=== PATIENT | female | born 1970 | race Caucasian/White ===

== ENCOUNTER → 2017-09-18 09:02 | Outpatient (CLI) | payer OTHER, SELFPAY ==
--- NOTE | 2017-09-18 09:04 | BI_ITS ---
MAMMOGRAPHY - BILATERAL SCREENING REASON FOR EXAM: Female, 46 years old. Routine annual screening examination. PERTINENT HISTORY: Non-contributory. Prior bilateral breast reduction surgery. TECHNIQUE: Digital bilateral breast randall (3D mammographic acquisition) in the CC and MLO projections. 2-D mediolateral oblique (MLO) and craniocaudad (CC) views of both breasts were obtained. CAD: Full Field Digital Mammography with Computer Added Detection was performed. COMPARISON: Comparison is made with prior study dated April 19, 2016 and December 31, 2014. FINDINGS: Breast Composition: There are scattered areas of fibroglandular density. There are no dominant masses or suspicious calcifications. Stable deformity along the deep inferior aspect of the left breast with prior breast reduction surgery. Tissue clip marker is once again seen in the deep midportion of the left breast. Calcifications are seen in the midportion of the left breast most likely postsurgical in nature. No other significant abnormalities are identified. There has been no significant change since the prior study. BI/SCREENING MAMM (CAD), BILAT IMPRESSION: Stable bilateral screening mammogram. Yearly follow-up mammogram recommended. (A) ASSESSMENT CATEGORY: BIRADS Category 2: Benign. A letter regarding these results will be sent to the patient by the facility within 30 days. Approximately 10% of breast cancers are not detected by mammography. A normal mammogram should not delay biopsy of a clinically suspicious abnormality. [id number] Electronically Signed: Armando Oswald MD at 13:03 EDT Tel [phone], Service support ,
[2017-09-20 12:09] LABS: HPV Reflexed? NOT INDICATED
== END ==
LOC: OPBI 09:02 → LABSPEC 14:01
PROVIDERS: Family Provider Family Medicine; PCP Family Medicine; Visit Provider Obstetrics & Gynecology
DX: Z12.31 Encounter for screening mammogram for malignant neoplasm of breast (principal); Z12.4 Encounter for screening for malignant neoplasm of cervix
CPT/HCPCS: 77063; 77067; 88175; G0145

== ENCOUNTER → 2018-12-19 08:08 | Outpatient (CLI) | payer BC, SELFPAY ==
--- NOTE | 2018-12-19 08:27 | BI_ITS ---
MAMMOGRAPHY - BILATERAL SCREENING REASON FOR EXAM: Female, 48 years old. Routine annual screening examination. PERTINENT HISTORY: Non-contributory. History of bilateral breast reduction surgery. TECHNIQUE: Digital bilateral breast mignon (3D mammographic acquisition) in the CC and MLO projections. 2-D mediolateral oblique (MLO) and craniocaudad (CC) views of both breasts were obtained. CAD: Full Field Digital Mammography with Computer Added Detection was performed. COMPARISON: Comparison is made with prior study dated September 18, 2017 and April 19, 2016. FINDINGS: Breast Composition: There are scattered areas of fibroglandular density. There are no dominant masses or suspicious calcifications. Stable deformity along the inferior aspect of the left breast and compared with prior breast reduction surgery and fluid drainage. A tissue clip marker is seen in the deep aspect of the left breast. Stable calcifications in the midportion of the left breast incomplete with postsurgical changes. No other significant abnormalities are identified. There has been no significant change since the prior study. BI/SCREEN MAMM (CAD) W/MIGNON BILAT IMPRESSION: Stable bilateral screening mammogram. Yearly follow-up mammogram recommended. (A) ASSESSMENT CATEGORY: BIRADS Category 2: Benign. A letter regarding these results will be sent to the patient by the facility within 30 days. Approximately 10% of breast cancers are not detected by mammography. A normal mammogram should not delay biopsy of a clinically suspicious abnormality. [id number] Electronically Signed: Armando Oswald, at 10:04 EDT , Service support ,
[2018-12-25 14:12] LABS: HPV APTIMA, High Risk Negative (Negative)
== END ==
LOC: OPBI 08:26 → LABSPEC 10:36
PROVIDERS: Family Provider Family Medicine; PCP Family Medicine; Referring Provider Obstetrics & Gynecology; Visit Provider Obstetrics & Gynecology
DX: Z12.31 Encounter for screening mammogram for malignant neoplasm of breast (principal); Z12.4 Encounter for screening for malignant neoplasm of cervix
CPT/HCPCS: 77063; 77067; 87624; 88175; G0145

== ENCOUNTER → 2020-02-05 | Outpatient (CLI) | payer BC, SELFPAY ==
[2020-02-10 11:59] LABS: HPV Reflexed? NOT INDICATED
== END | disposition home or self-care (01) ==
LOC: LABSPEC 13:24
PROVIDERS: PCP Family Medicine; Visit Provider Obstetrics & Gynecology
DX: Z12.4 Encounter for screening for malignant neoplasm of cervix (principal)
CPT/HCPCS: 88175; G0145

== ENCOUNTER → 2020-05-02 13:03 | Outpatient (CLI) | payer BC, SELFPAY ==
--- NOTE | 2020-05-02 13:07 | BI_ITS ---
MAMMOGRAPHY - BILATERAL SCREENING REASON FOR EXAM: Female, 49 years old. Routine annual screening examination. PERTINENT HISTORY: NO FAM HX OF BREAST CA PT HAD FIRST CHILD AT AGE 42 RT STEREO BX 03/2010 RT SKIN TAG MARKED BILAT REDUCTION 10/2015 (ONE SURGICAL SLIP CLOSE TO CHEST WALL ON LEFT) LEFT IMF- EXCESSIVE SCAR/PUCKERING FROM REDUCTION TECHNIQUE: Digital bilateral breast mignon (3D mammographic acquisition) in the CC and MLO projections. 2-D mediolateral oblique (MLO) and craniocaudad (CC) views of both breasts were obtained. CAD: Full Field Digital Mammography with Computer Added Detection was performed. COMPARISON: 12/19/2018 and 09/08/2017 FINDINGS: Breast Composition: There are scattered areas of fibroglandular density. There are no dominant masses or suspicious calcifications. Stable deformity along the inferior aspect of the left breast and compared with prior breast reduction surgery and fluid drainage. A tissue clip marker is seen in the deep aspect of the left breast. Stable calcifications in the midportion of the left breast incomplete with postsurgical changes. No other significant abnormalities are identified. There has been no significant change since the prior study. BI/SCREEN MAMM (CAD) W/MIGNON BILAT IMPRESSION: Stable bilateral screening mammogram. Yearly follow-up mammogram recommended. (A) ASSESSMENT CATEGORY: BIRADS Category 2: Benign. A letter regarding these results will be sent to the patient by the facility within 30 days. Approximately 10% of breast cancers are not detected by mammography. A normal mammogram should not delay biopsy of a clinically suspicious abnormality. [id number] Electronically Signed: Nikia Sexton, at 16:05 EST Tel , Service support ,
== END ==
PROVIDERS: PCP Family Medicine; Referring Provider Obstetrics & Gynecology; Visit Provider Obstetrics & Gynecology
DX: Z12.31 Encounter for screening mammogram for malignant neoplasm of breast (principal)
CPT/HCPCS: 77063; 77067

== ENCOUNTER 2021-06-22 10:16 | Outpatient (CLI) | payer BC, SELFPAY ==
--- NOTE | 2021-06-22 10:18 | BI_ITS ---
MAMMOGRAPHY - BILATERAL SCREENING REASON FOR EXAM: Female, 50 years old. Routine annual screening examination. PERTINENT HISTORY: Non-contributory. History of prior bilateral breast reduction surgery and right stereotactic breast biopsy. TECHNIQUE: Digital bilateral breast mignon (3D mammographic acquisition) in the CC and MLO projections. 2-D mediolateral oblique (MLO) and craniocaudad (CC) views of both breasts were obtained. CAD: Full Field Digital Mammography with Computer Added Detection was performed. COMPARISON: Comparison is made with prior study dated 05/02/2020 and 12/20/1999 FINDINGS: Breast Composition: There are scattered areas of fibroglandular density. There are no dominant masses or suspicious calcifications. Stable architectural distortion and deformity of the right breast with skin thickening and compared with prior breast reduction surgery and stereotactic breast biopsy. Stable small benign-appearing bilateral axillary lymph nodes. No other significant abnormalities are identified. There has been no significant change since the prior study. BI/SCRN MAMM (CAD)W/MIGNON BILAT IMPRESSION: Stable bilateral screening mammogram. Yearly follow-up mammogram recommended. (A) ASSESSMENT CATEGORY: BIRADS Category 2: Benign. A letter regarding these results will be sent to the patient by the facility within 30 days. Approximately 10% of breast cancers are not detected by mammography. A normal mammogram should not delay biopsy of a clinically suspicious abnormality. [id number] Electronically Signed: Armando Oswald MD at 14:01 EST ,
== END 2021-06-22 23:59 | disposition home or self-care (01) ==
LOC: OPBI 10:16
PROVIDERS: PCP Family Medicine; Referring Provider Obstetrics & Gynecology; Visit Provider Obstetrics & Gynecology
DX: Z12.31 Encounter for screening mammogram for malignant neoplasm of breast (principal)
CPT/HCPCS: 77063; 77067

== ENCOUNTER 2021-07-18 16:53 | Outpatient (CLI) | payer BC, SELFPAY ==
[2021-07-24 13:25] LABS: HPV APTIMA, High Risk Negative (Negative)
== END 2021-07-18 23:59 | disposition home or self-care (01) ==
LOC: WOBLAB 16:54
PROVIDERS: PCP Family Medicine; Visit Provider Obstetrics & Gynecology
DX: Z12.4 Encounter for screening for malignant neoplasm of cervix (principal); N92.6 Irregular menstruation, unspecified
CPT/HCPCS: 36415; 83001; 87624; 88175; G0145

== ENCOUNTER → 2021-09-26 | Outpatient (CLI) | payer BC, SELFPAY ==
[2021-09-26 13:24] LABS: Hematocrit 44.8 % (37-47); Hemoglobin 14.8 g/dL (12.0-15.0); Mean Corpuscular Volume 87.7 fL (81-99); Mean Platelet Vol. 10.5 fl (6.2-12.0); Platelet Count 319 K/mm3 (150-450); RBC Distribution Width CV 12.5 % (11.6-14.6); RBC Distribution Width SD 39.9 fl (35.1-43.9); Red Blood Count 5.11 M/mm3 (4.2-5.4); White Blood Count 9.2 K/mm3 (4.4-11.0)
[2021-09-26 13:40] LABS: ALB/GLOB Ratio 1.1 RATIO (0.9-2.4); AST(SGOT) 26 U/L (15-37); Alanine Aminotransfer ALT/SGPT 50 U/L (13-56); Alkaline Phosphatase 81 U/L (45-117); Anion Gap 7 (5-15); BUN 14 mg/dL (7-18); BUN/Creat Ratio 18.8 RATIO (10-20); Chloride 102 mmol/L (98-107); Creatinine, Serum 0.75 mg/dL (0.55-1.02); EST Glomerular Filtration Rate 87 mL/min (>60); Est Glom Filt Rate - Afr Amer 105 mL/min (>60); Estradiol 133.8 pg/mL; Ferritin 122 ng/mL (8-252); Globulin 3.8 g/dL (2.2-4.2); Glucose 87 mg/dL (74-106); Iron 129 ug/dL (50-170); Iron Binding Capacity,Total 364 ug/dL (250-450); Potassium 3.6 mmol/L (3.5-5.1); Progesterone Level 4.47 ng/mL (See Comment); Protein, Total 7.8 g/dL (6.4-8.2); Sodium Level 135 mmol/L (136-145); Vitamin B12 337 pg/mL (211-911)
[2021-09-26 13:42] LABS: Hemoglobin A1c 5.2 % (3.8-5.6)
== END | disposition home or self-care (01) ==
LOC: WOBLAB 12:20
PROVIDERS: PCP Family Medicine; Visit Provider Obstetrics & Gynecology
DX: N95.1 Menopausal and female climacteric states (principal); R53.83 Other fatigue; Z13.1 Encounter for screening for diabetes mellitus
CPT/HCPCS: 36415; 80053; 82607; 82670; 82728; 83036; 83540; 83550; 84144; 84270; 84403; 85027

== ENCOUNTER → 2021-09-29 | Outpatient (CLI) | payer BC, SELFPAY ==
[2021-09-29 11:30] LABS: Glucose 75GTT - 30 minutes 173 mg/dL (100-160)
[2021-09-29 11:32] LABS: Glucose 75GTT - Fasting 89 mg/dL (70-99)
[2021-09-29 11:40] LABS: Insulin 75GTT - Fasting 21.5 mU/L (2.6-37.6)
[2021-09-29 11:40] LABS: Insulin 75GTT - 30 MIN 175.7 mU/L (Not Estab.)
[2021-09-29 11:55] LABS: Glucose 75GTT - 60 minutes 193 mg/dL (100-160)
[2021-09-29 12:03] LABS: Insulin 75GTT - 60 min 285.5 mU/L (Not Estab)
[2021-09-29 13:41] LABS: Glucose 75GTT - 120 minutes 135 mg/dL (70-140)
[2021-09-29 15:15] LABS: Insulin 75GTT - 120 min 387.6 mU/L (Not Estab.)
== END | disposition home or self-care (01) ==
LOC: WOBLAB 10:08
PROVIDERS: PCP Family Medicine; Visit Provider Obstetrics & Gynecology
DX: R73.09 Other abnormal glucose (principal); R63.5 Abnormal weight gain; Z86.32 Personal history of gestational diabetes
CPT/HCPCS: 36415; 82951; 82952; 83525

== ENCOUNTER → 2023-01-24 | Outpatient (CLI) | payer BC, SELFPAY ==
--- NOTE | 2023-01-24 08:39 | BI_ITS ---
MAMMOGRAPHY - BILATERAL SCREENING REASON FOR EXAM: Female, 52 years old. Routine annual screening examination. PERTINENT HISTORY: Non-contributory. History of prior right stereotactic breast biopsy. History of bilateral breast reduction surgery. TECHNIQUE: Digital bilateral breast mignon (3D mammographic acquisition) in the CC and MLO projections. 2-D mediolateral oblique (MLO) and craniocaudad (CC) views of both breasts were obtained. CAD: Full Field Digital Mammography with Computer Added Detection was performed. COMPARISON: Comparison is made with prior study dated June 22, 2021 and April 24, 2020. FINDINGS: Breast Composition: There are scattered areas of fibroglandular density. There are no dominant masses or suspicious calcifications. A tissue clip marker is once again seen in the deep central portion of the left breast. Stable architectural distortion and deformity of the left breast and skin thickening in keeping with prior breast reduction surgery. Stable benign-appearing bilateral axillary lymph nodes. No other significant abnormalities are identified. There has been no significant change since the prior study. BI/SCRN MAMM (CAD)W/MIGNON BILAT IMPRESSION: Stable bilateral screening mammogram. Yearly follow-up mammogram recommended. (A) ASSESSMENT CATEGORY: BIRADS Category 2: Benign. A letter regarding these results will be sent to the patient by the facility within 30 days. Approximately 10% of breast cancers are not detected by mammography. A normal mammogram should not delay biopsy of a clinically suspicious abnormality. [id number] Electronically Signed: Armando Oswald MD at 9:39 EDT ,
== END | disposition home or self-care (01) ==
LOC: OPBI 08:37
PROVIDERS: PCP Family Medicine; Referring Provider Nurse Practitioner Family; Visit Provider Nurse Practitioner Family
DX: Z12.31 Encounter for screening mammogram for malignant neoplasm of breast (principal)
CPT/HCPCS: 77063; 77067

== ENCOUNTER → 2024-01-31 | Outpatient (CLI) | payer BC, SELFPAY ==
--- NOTE | 2024-01-31 09:55 | BI_ITS ---
MAMMOGRAPHY - BILATERAL SCREENING REASON FOR EXAM: Female, 53 years old. Routine annual screening examination. PERTINENT HISTORY: Non-contributory. Prior right stereotactic breast biopsy in bilateral breast reduction. TECHNIQUE: Digital bilateral breast mignon (3D mammographic acquisition) in the CC and MLO projections. 2-D mediolateral oblique (MLO) and craniocaudad (CC) views of both breasts were obtained. CAD: Full Field Digital Mammography with Computer Added Detection was performed. COMPARISON: Comparison is made with prior study dated January 24, 2023 and March 22, 2022. FINDINGS: Breast Composition: There are scattered areas of fibroglandular density. There are no dominant masses or suspicious calcifications. A tissue clip marker is once again seen in the deep central portion of the left breast. Stable architectural distortion and deformity of the left breast in the inferior lateral aspect of the breast and compared with prior breast reduction surgery. No other significant abnormalities are identified. There has been no significant change since the prior study. BI/SCRN MAMM (CAD)W/MIGNON BILAT IMPRESSION: Stable bilateral screening mammogram. Yearly follow-up mammogram recommended. (A) ASSESSMENT CATEGORY: BIRADS Category 2: Benign. A letter regarding these results will be sent to the patient by the facility within 30 days. Approximately 10% of breast cancers are not detected by mammography. A normal mammogram should not delay biopsy of a clinically suspicious abnormality. [id number] Electronically Signed: Armando Oswald MD at 10:33 EDT ,
== END | disposition home or self-care (01) ==
LOC: OPBI 09:54
PROVIDERS: PCP Family Medicine; Referring Provider Nurse Practitioner Family; Visit Provider Nurse Practitioner Family
DX: Z12.31 Encounter for screening mammogram for malignant neoplasm of breast (principal)
CPT/HCPCS: 77063; 77067

== ENCOUNTER → 2025-02-23 | Outpatient (CLI) | payer BC, SELFPAY ==
--- NOTE | 2025-02-23 16:36 | BI_ITS ---
EXAM: SCRN MAMM (CAD)W/MIGNON BILAT DATE: 02/23/2025 CLINICAL HISTORY: F, Age 54 y/o , SCREENING No family history. History of prior bilateral breast reduction surgery and stereotactic breast biopsy. TECHNIQUE: Procedure Code: [id number] Modality: MG Procedure: SCRN MAMM (CAD)W/MIGNON BILAT COMPARISON: Prior exam(s) dated January 31, 2024.. FINDINGS: TISSUE DENSITY: There are scattered areas of fibroglandular density. Bilateral Breast Mammographic Findings: No significant masses, calcifications or other abnormalities are identified. A tissue clip marker is once again seen in the deep upper central portion of the left breast. Stable architectural distortion in the upper central portion of the left breast in keeping with prior surgery. No suspicious masses, areas of developing architectural distortion, or suspicious calcifications. There has been no significant interval change. BI/SCRN MAMM (CAD)W/MIGNON BILAT IMPRESSION: Stable bilateral screening mammogram. OVERALL FINAL ASSESSMENT BI-RADS 2: BENIGN RECOMMENDATION: Routine annual follow-up in 1 Year Additional Recommendation none A letter with findings and recommendations will be mailed to the patient. Reading Location: [place] [id number]
--- OUTSIDE RECORDS SUMMARY | 2025-02-24 07:07 | XMS RPT_ITS | CCD ---
Author Organization [facility] Care Team Providers Care Mid Level Provider Name Role Phone Cornell Humphrey Unavailable SAJI SILVA Unavailable Unavailable SAJI SILVA Unavailable Unavailable HUMPHREYCORNELL Long Unavailable Unavaila ble Newbill, Scott Ramses Unavailable Unavailable Newbill, Scott Ramses Unavailable Unavailable Humphrey, Christopher Unavailable Unavailable Wood, Ravin L Unavailable Unavailable Humphrey, Christopher Unavailable Unavailable Wood, Ravin L Unavailable Unavailable Wood, Ravin L Unavailable Unavailable Humphrey, Christopher Unavailable Unavailable Wood, Ravin L Unavailable Unavailable Wood, Ravin L Unavailable Unavailable Wood, Ravin L Unavailable Unavailable Humphrey, Christopher Unavailable Unavailable Wood, Ravin L Unavailable Unavailable Wood, Ravin L Unavailable Unavailable Humphrey, Christopher Unavailable Unavailable Wood, Ravin L Unavailable Unavailable Humphrey, Christopher Unavailable Unavailable Wood, Ravin L Unavailable Unavailable Humphrey, Christopher Unavailable Unavailable Wood, Ravin L Unavailable Unavailable Wood, Ravin L Unavailable Unavailable Wood, Ravin L Unavailable Unavailable Humphrey, Christopher Unavailable Unavailable Wood, Ravin L Unavailable Unavailable Humphrey, Christopher Unavailable Unavailable Wood, Ravin L Unavailable Unavailable Wood, Ravin L Unavailable Unavailable Humphrey, Christopher Unavailable Unavailable Wood, Ravin L Unavailable Unavailable Wood, Ravin L Unavailable Unavailable Wood, Ravin L Unavailable Unavailable Humphrey, Christopher Unavailable Unavailable Wood, Ravin L Unavailable Unavailable Wood, Ravin L Unavailable Unavailable Humphrey, Christopher Unavailable Unavailable Leonard Feng Unavailable Unavailable Leonard Feng Unavailable Unavailable ALISON FATIMA Attending Unavailab le CORNELL HUMPHREY Primary Care Unavaila ble Wood, Ravin Unavailable Unavailable Vincent Humphreyopher D Unavailable Unavailable Cornell Humphrey Primary Care Provider [phone] Cornell Humphrey Unavailable Unavailable Unavailable Cornell Humphrey Unavailable Scott Guzman Unavailable Ravin Alexander Unavailable Arthur, Ms. Ravin Moraine Referring Unav ailable Wood, Ms. Ravin Moraine Attending Unav ailable Milagro, Cornell Cullen Primary Care Unavaila ble Milagro, Cornell Cullen Primary Care Unavaila ble Wood, Ms. Ravin Moraine Referring Unav ailable Wood, Ms. Ravin Moraine Attending Unav ailable Milagro, Dr. Cornell Cullen Primary Care Unav ailable Newstevel, Mr. Scott Pearce Attending Unavail able Cornell Humphrey MD Primary Care Provider Cornell Humphrey MD Primary Care Provider CORNELL HUMPHREY Primary Care Unavailable YEHUDA APPIAH Attending Unavailable CORNELL HUMPHREY Primary Care Unavailable CORNELL HUMPHREY Primary Care Unavailable Cornell Humphrey MD Primary Care Provider Arthur PILOT SUBMERSIBLE-Ravin MOY Primary Care Provider Arthur PICKARD-Ravin MOY Primary Care Provider RAVIN ALEXANDER Attending Unavailable RAVIN ALEXANDER Primary Care Unavailable RAVIN ALEXANDER Referring Unavailable RAVIN ALEXANDER Attending Unavailable Kermit Humphrey Primary Care Unavailable Allergies Allergy Classification Reported Allergen(s) Allergy Type Date of Onset Reaction(s) Facility (20 sources) codeine; Translations: [CODEINE] Propensity to adverse reactions to drug 0 Unknown [facility] Work Phone: (8 sources) Penicillins; Translations: [PENICILLINS] Propensity to adverse reactions to drug 0 [facility] Work Phone: (6 sources) Penicillins; Translations: [Penicillins] Allergy to drug (finding) Rash [facility] Work Phone: (4 sources) Penicillins Drug Allergy 3 Unknown [facility] Work Phone: (1 source) Penicillins Drug Allergy 3 Unknown [facility] Work Phone: Medications Current Medications Medication Drug Class(es) Dates Sig (Normalized) Sig (Original) atorvastatin 10 mg oral tablet (1 source) HMG-CoA Reductase Inhibitor Start: 01-28-2025 End: 01-28-2026 take 1 tablet by mouth once daily atorvastatin (Lipitor) 10 mg tablet Indications: Elevated LDL cholesterol level Take 1 tablet (10 mg) by mouth once daily. 90 tablet 3 01/28/2025 01/28/2026 Active azithromycin 250 mg oral tablet (1 source) Macrolide Antimicrobial Start: 12-15-2021 Zithromax Z-Javier 250 mg oral tablet ; as directed on packeage Quantity: 1 Refills: 0 Ordered: 15-Dec-2021 Scott Guzman Start: 15-Dec-2021 Generic Substitution Allowed Comments: Do not take dairy products, antacids, or iron preparations within one hour of this medication.Finish all this medication unless otherwise directed by prescriber. Comment on above: Do not take dairy pr oducts, antacids, or iron preparations within one hour of this medication.Finish all this medication unless otherwise directed by prescriber. brompheniramine maleate 0.4 mg/ml / dextromethorphan hydrobromide 2 mg/ml / pseudoephedrine hydrochloride 6 mg/ml oral solution (1 source) alpha-Adrenergic Agonist, Uncompetitive F-womvqn-J-asparta te Receptor Antagonist, Sigma-1 Agonist Start: 12-15-2021 brompheniramine/pse udoephedrine/dextro methorphan [id number]/5 mL oral syrup ; 10 milliliter(s) orally 4 times a day, As Needed for cold or allergy symproms Quantity: 200 Refills: 0 Ordered: 15-Dec-2021 Scott Guzman Start: 15-Dec-2021 Generic Substitution Allowed Comments: May cause drowsiness. Alcohol may intensify this effect. Use care when operating dangerous machinery.Obtain medical advice before taking any non-prescription drugs as some may affect the action of this medication. Comment on above: May cause drowsiness . Alcohol may intensify this effect. Use care when operating dangerous machinery.Obtain medical advice before taking any non-prescription drugs as some may affect the action of this medication. 24 hr buPROPion hydrochloride 150 mg extended release oral tablet (1 source) Aminoketone Start: 12-15-2024 take 1 tablet by mouth once daily before mealtime buPROPion XL (Wellbutrin XL) 150 mg 24 hr tablet Take 1 tablet (150 mg) by mouth once daily in the morning. Take before meals. 12/15/2024 Active cefdinir 300 mg oral capsule (1 source) Cephalosporin Antibacterial Start: 09-25-2023 End: 10-05-2023 take 1 capsule by mouth twice daily cefdinir (Omnicef) 300 mg capsule Indications: Non-recurrent acute serous otitis media of both ears Take 1 capsule (300 mg) by mouth 2 times a day for 10 days. 20 capsule 09/25/2023 10/05/2023 Active cholecalciferol 400 unt oral tablet (3 sources) Vitamin D Start: 05-20-2017 take 2 tablets by mouth once daily CHOLECALCIFEROL 400 unit tablet Take 800 Units by mouth daily. 3 05/20/2017 Active empagliflozin 25 mg oral tablet (7 sources) Sodium-Glucose Cotransporter 2 Inhibitor Start: 01-01-2022 empagliflozin (Jardiance) 25 mg Take by mouth. 01/01/2022 Active Start: 01-01-2022 empagliflozin (Jardiance) 10 mg Take by mouth. 0 01/01/2022 Active Jardiance Quanti ty: 0 Refills: 0 Ordered: 15-Dec-2021 Jenny Pretty Generic Substitution Allowed 84 hr estradiol 0.00613 mg/hr transdermal system (1 source) Estrogen Start: 01-22-2025 estradiol (Vivelle-DOT) 0.0375 mg/[address] 1 patch on the skin 2 times a week. 01/22/2025 Active fluconazole 150 mg oral tablet (2 sources) Azole Antifungal Start: 09-25-2023 End: 09-25-2023 take 1 tablet by mouth once daily fluconazole (Diflucan) 150 mg tablet Indications: Non-recurrent acute serous otitis media of both ears Take 1 tablet (150 mg) by mouth 1 time for 1 dose. Repeat on last day of antibiotics 2 tablet 09/25/2023 09/25/2023 Active Start: 12-15-2021 End: 12-15-2021 take 1 tablet by mouth once Diflucan 150 mg oral table t ; 1 tab(s) orally once Quantity: 1 Refills: 0 Ordered: 15-Dec-2021 ToritoScott yao Start: 15-Dec-2021 End: 15-Dec-2021 Generic Substitution Allowed Comments: Do not take this drug if you are .Finish all this medication unless otherwise directed by prescriber. Comment on above: Do not take this malachi g if you are .Finish all this medication unless otherwise directed by prescriber. hydroCHLOROthiazide 12.5 mg oral tablet (12 sources) Thiazide Diuretic Start : 12-21 End: 01-26 take 1 tablet by mouth once daily hydroCHLOROthiazide (Microzide) 12.5 mg tablet Indications: Benign hypertension TAKE 1 TABLET BY MOUTH ONCE DAILY. 90 tablet 3 01/26/2025 Active take 1 capsule by mouth once radha ly hydroCHLOROthiazide 12.5 mg oral capsule ; 1 cap(s) orally once a day Quantity: 0 Refills: 0 Ordered: 12-Jan-2021 Steffi Lynch Generic Substitution Allowed hydroCHLOROthiazide 12.5 mg / lisinopril 10 mg oral tablet (3 sources) Thiazide Diuretic, Angiotensin Converting Enzyme Inhibitor Start: 05-20-2017 take 10-12.5 mg by mouth once lisinopril-hydrochlorothiazide (PRINZIDE,ZESTORETIC) 10-12.5 mg per tablet Take 1 tablet by mouth daily. 2 05/20/2017 Active Start: 05-20-2017 take 1 tablet by brenton th once daily lisinopril-hydrochlorothiazide (PRINZIDE,ZESTORETIC) 10-12.5 mg per tablet Take 1 tablet by mouth daily. 2 05/20/2017 Active levothyroxine sodium 0.05 mg oral tablet (1 source) l-Thyroxine Start: 08-19-2024 take 1 tablet by mouth in the morning levothyroxine (Synthroid, Levoxyl) 50 mcg tablet Take 1 tablet (50 mcg) by mouth early in the morning.. 08/19/2024 Active losartan potassium 50 mg oral tablet (12 sources) Angiotensin 2 Receptor Nini Start: 12-22-2019 End: 01-26-2025 take 1 tablet by mouth once daily losartan (Cozaar) 50 mg tablet Indications: Benign hypertension TAKE 1 TABLET BY MOUTH EVERY DAY 90 tablet 3 01/26/2025 Active metFORMIN hydrochloride 500 mg oral tablet (8 sources) Biguanide Start: 01-01-2022 take 2 tablets by mouth twice daily metFORMIN (Glucophage) 500 mg tablet Take 2 tablets (1,000 mg) by mouth 2 times a day. 0 01/01/2022 Active take 1 tablet by brenton th once daily at bedtime metFORMIN (Glucophage) 1,000 mg tablet T ricky 1 tablet (1,000 mg) by mouth once daily at bedtime. Active metFORMIN Quanti ty: 0 Refills: 0 Ordered: 15-Dec-2021 Jenny Pretty Generic Substitution Allowed 24 hr metoprolol succinate 25 mg extended release oral tablet (12 sources) beta-Adrenergic Nini Start: 01-27-2024 End: 01-26-2025 take 1 tablet by mouth once daily metoprolol succinate XL (Toprol-XL) 25 mg 24 hr tablet Indications: Heart palpitations Take 1 tablet (25 mg) by mouth once daily. Do not crush or chew. 30 tablet 11 01/27/2024 Active Start: 12-28-2019 End: 01-21-2024 take 1 tablet by mouth once daily metoprolol succinate XL (Toprol-XL) 25 mg 24 hr tablet Indications: Heart palpitations Take 1 tablet (25 mg) by mouth once daily. 90 tablet 3 01/21/2023 01/21/2024 Active Start: 06-05-2017 End: 06-05-2018 take 1 tablet by mouth once daily metoprolol succinate (TOPROL XL) 25 MG 24 hr tablet Indications: Essential hypertension Take 1 (one) tablet (25 mg total) by mouth daily. 30 tablet 11 06/05/2017 06/05/2018 Active take 1 tablet by brenton th twice daily metoprolol tartrate 25 mg oral tablet ; 1 tab(s) orally 2 times a day Quantity: 0 Refills: 0 Ordered: 12-Jan-2021 Steffi Lynch Generic Substitution Allowed montelukast 10 mg oral tablet (12 sources) Leukotriene Receptor Antagonist Start: 12-28-2019 End: 01-26-2025 take 1 tablet by mouth once daily montelukast (Singulair) 10 mg tablet Indications: Mild intermittent asthma without complication (HHS-HCC) TAKE 1 TABLET BY MOUTH EVERY DAY 90 tablet 3 01/26/2025 Active phenazopyridine hydrochloride 100 mg oral tablet (1 source) Start: 01-21-2023 End: 01-24-2023 take 1 tablet by mouth three times daily as needed for muscle spasms phenazopyridine (Pyridium) 100 mg tablet Indications: Dysuria Take 1 tablet (100 mg) by mouth 3 times a day as needed for bladder spasms for up to 3 days. 9 tablet 0 01/21/2023 01/24/2023 Active progesterone 200 mg oral capsule (8 sources) Progesterone Start: 10-02-2024 progesterone (Prometrium) 200 mg capsule TAKE 1 CAPSULE AT BEDTIME PERIOD TO OVULATION, THEN TAKE 4 CAPSULES AT BEDTIME UNTIL PERIOD STARTS 10/02/2024 Active Start: 05-16-2017 End: 01-28-2025 take - capsules by mouth once daily at bedtime progesterone (PROMETRIUM) 100 MG capsule TAKE ONE CAPSULE BY MOUTH EVERY NIGHT AT BEDTIME DAYS 3-10, AND TAKE THREE CAPSULES EVERY NIGHT AT BEDTIME DAYS - 3 05/16/2017 Active spironolactone 50 mg oral tablet (2 sources) Aldosterone Antagonist Start: 01-09-2024 take 1 tablet by mouth every twelve hours spironolactone (Aldactone) 50 mg tablet Take 1 tablet (50 mg) by mouth every 12 hours. 01/09/2024 Active sulfamethoxazole 800 mg / trimethoprim 160 mg oral tablet (1 source) Dihydrofolate Reductase Inhibitor Antibacterial, Sulfonamide Antimicrobial Start: 01-21-2023 End: 01-24-2023 take 1 tablet by mouth twice daily sulfamethoxazole-tr imethoprim (Bactrim DS) 800-160 mg tablet Indications: Dysuria Take 1 tablet by mouth 2 times a day for 3 days. 6 tablet 0 01/21/2023 01/24/2023 Active Testosterone (2 sources) Androgen End: 01-28-2025 testosterone 10% cream 01/28/2025 Discontinued (Therapy completed) testosterone 10% cream Active vitamin b12 1 mg/ml injectable solution (2 sources) Vitamin B12 Start: 01-13-2024 cyanocobalamin (Vitamin B-12) 1,000 mcg/mL injection Inject 1 mL (1,000 mcg) into the muscle. 01/13/2024 Active Completed/Discontinued Medications Medication Drug Class(es) Dates Sig (Normalized) Sig (Original) Paxlovid 20 x 150 MG & 10 x 100MG Oral Tablet Therapy Pack (1 source) Start: 11-08-2021 Paxlovid 20 x 150 MG & 10 x 100MG Oral Tablet Therapy Pack 3OOMG NIRMATRELVIR/100MG RITONAXIR BID FOR 5 DAYS Quantity: 1 Refills: 0 Ordered: 08-Nov-2021 Cornell Humphrey MD Start : 08-Nov-2021 Active Paxlovid 20 x 150 MG & 10 x 100MG TBPK (1 source) Start: 11-08-2021 End: 01-01-2022 Paxlovid 20 x 150 MG & 10 x 100MG TBPK 3OOMG NIRMATRELVIR/100MG RITONAXIR BID FOR 5 DAYS Quantity: 1 Refills: 0 Ordered: 08-Nov-2021 Cornell Humphrey MD Start : 08-Nov-2021 End : 01-Jan-2022 Complete predniSONE 10 mg oral tablet (1 source) Start: 12-15-2021 predniSONE 10 mg oral tablet ; take 3 tabs for 2 days, then 2 tabs for 2 days, then 1 tab for 2 days Quantity: 12 Refills: 0 Ordered: 15-Dec-2021 Scott Guzman Start: 15-Dec-2021 Generic Substitution Allowed Comments: It is very important that you take or use this exactly as directed. Do not skip doses or discontinue unless directed by your doctor.Obtain medical advice before taking any non-prescription drugs as some may affect the action of this medication.Take with food or milk. Comment on above: It is very important that you take or use this exactly as directed. Do not skip doses or discontinue unless directed by your doctor.Obtain medical advice before taking any non-prescription drugs as some may affect the action of this medication.Take with food or milk. Problems Active Problems Problem Classification Problem Date Documented Da te Episodic/Chronic Asthma (16 sources) Mild intermittent asthma; Translations: [Asthma, unspecified type, unspecified] Onset: 07-02-2022 01-21-2023 Chronic Diabetes mellitus without complication (10 sources) Prediabetes; Translations: [Prediabetes] Onset: 07-02-2022 01-21-2023 Episodic Disorders of lipid metabolism (4 sources) Raised low density lipoprotein cholesterol; Translations: [Pure hypercholesterolemi a, unspecified] Onset: 01-28-2025 01-28-2025 Chronic Essential hypertension (19 sources) Hypertensive disorder; Translations: [Benign hypertension] Onset: 06-05-2017 06-05-2017 Chronic Immunizations and screening for infectious disease (20 sources) Patient encounter status; Translations: [Other specified vaccination] Onset: 01-21-2023 01-21-2023 Episodic Menopausal disorders (2 sources) Hormone replacement therapy; Translations: [Hormone replacement therapy] Onset: 01-07-2024 Episodic Mood disorders (4 sources) Major depression in partial remission; Translations: [Major depressive disorder, single episode, in partial remission] Onset: 01-28-2025 01-28-2025 Chronic Nutritional deficiencies (2 sources) Vitamin D deficiency, unspecified; Translations: [Vitamin D deficiency, unspecified] Onset: 03-19-2023 Chronic Nutritional deficiencies (2 sources) Deficiency of other specified B group vitamins; Translations: [Deficiency of other specified B group vitamins] Onset: 01-07-2024 Episodic Other endocrine disorders (2 sources) Polycystic ovarian syndrome; Translations: [Polycystic ovarian syndrome] Onset: 03-19-2023 Chronic Other endocrine disorders (2 sources) Polycystic ovary syndrome; Translations: [Polycystic ovarian syndrome] Onset: 01-27-2024 01-27-2024 Chronic Other screening for suspected conditions (not mental disorders or infectious disease) (7 sources) Encounter for screening for lipoid disorders; Translations: [Other specified abnormal findings of blood chemistry] Onset: 03-19-2023 Episodic Otitis media and related conditions (5 sources) Dysfunction of eustachian tube; Translations: [Dysfunction of Eustachian tube] Onset: 12-15-2021 12-15-2021 Episodic Unclassified (2 sources) EAR DISCOMFORT 12-15-2021 Comment on above: EAR DISCOMFORT Unclassified (1 source) YEARLY FU HTN PALPITATIONS 12-29-2020 Comment on above: YEARLY FU HTN PALPIT ATIONS Unclassified (1 source) ETD (eustachian tube dysfunction) 12-15-2021 Unclassified (1 source) Patient encounter status 01-28-2025 Past or Other Problems Problem Classification Problem Date Documented Da te Episodic/Chronic Cardiac dysrhythmias (14 sources) Palpitations; Translations: [Palpitations] Onset: 06-05-2017 06-05-2017 Episodic Diabetes mellitus without complication (10 sources) Diabetes mellitus; Translations: [Diabetes mellitus without mention of complication, type II or unspecified type, not stated as uncontrolled] Onset: 07-02-2022 Resolved: 01-28-2025 06-03-2023 Chronic Genitourinary symptoms and ill-defined conditions (5 sources) Dysuria; Translations: [Dysuria] Onset: 01-21-2023 Resolved: 01-27-2024 01-21-2023 Episodic Malaise and fatigue (7 sources) Fatigue; Translations: [Other fatigue] Onset: 01-21-2023 Resolved: 01-27-2024 01-21-2023 Episodic Other aftercare (2 sources) 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; Translations: [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] Onset: 03-19-2023 Episodic Other ear and sense organ disorders (1 source) Otalgia, right ear; Translations: [Otalgia, right ear] Onset: 12-15-2021 Episodic Other gastrointestinal disorders (5 sources) Irritable bowel syndrome; Translations: [Irritable bowel syndrome] Onset: 07-02-2022 Resolved: 01-21-2023 01-21-2023 Chronic Other gastrointestinal disorders (3 sources) Digestive symptom; Translations: [Irritable bowel syndrome without diarrhea] Onset: 07-02-2022 Resolved: 01-21-2023 01-21-2023 Chronic Other lower respiratory disease (5 sources) Dyspnea on exertion; Translations: [Shortness of breath] Onset: 06-05-2017 06-05-2017 Episodic Other nutritional; endocrine; and metabolic disorders (16 sources) Obesity; Translations: [Obesity, unspecified] Onset: 07-02-2022 Resolved: 01-21-2023 01-21-2023 Chronic Other nutritional; endocrine; and metabolic disorders (3 sources) Obesity caused by energy imbalance; Translations: [Other obesity due to excess calories] Onset: 07-02-2022 Resolved: 01-21-2023 01-21-2023 Chronic Other nutritional; endocrine; and metabolic disorders (9 sources) History of nutritional deficiency; Translations: [Personal history of nutritional deficiency] Onset: 07-02-2022 07-02-2022 Episodic Other nutritional; endocrine; and metabolic disorders (6 sources) Overweight in adulthood with body mass index of 25 or more but less than 30; Translations: [Overweight] Onset: 07-02-2022 Resolved: 01-21-2023 01-21-2023 Episodic Other skin disorders (3 sources) Loss of hair; Translations: [Nonscarring hair loss, unspecified] Onset: 06-03-2023 Resolved: 01-27-2024 06-03-2023 Episodic Residual codes; unclassified (2 sources) Edema, unspecified; Translations: [Edema, unspecified] Onset: 03-19-2023 Episodic Unclassified (4 sources) Onset: 01-21-2023 Resolved: 01-28-2025 01-21-2023 Viral infection (7 sources) Disease caused by 2019-nCoV; Translations: [Other specified viral infection] Onset: 07-02-2022 Resolved: 01-21-2023 01-21-2023 Episodic NEGATED: Highlighted row has not occurred!Residual codes; unclassified (2 sources) Disease Episodic Results Test Name Value Interpretation Reference Range Facility CBC panel Auto (Bld)on 01-06 Erythrocyte distribution width (RBC) [Ratio] 13.1 % Normal 11.5-14.5 [facility] Comment on above: Performed By: #### 2 479-7 #### DESTIN HOPKINS ([id number]) [facility] ([facility]) [address] [place] [id number] Hematocrit (Bld) [Volume fraction] 47.0 % High 36.0-46.0 [facility] Comment on above: Performed By: #### 2 345-7 #### DESTIN HOPKINS ([id number]) [facility] ([facility]) [address] [place] [address] 15516 Hemoglobin (Bld) [Mass/Vol] 15.1 g/dL Normal 12.0-16.0 [facility] Comment on above: Performed By: #### 2 345-7 #### DESTIN HOPKINS ([id number]) [facility] ([facility]) [address] [place] [address] 07371 MCH (RBC) [Entitic mass] 29.5 pg Normal 26.0-34.0 [facility] Comment on above: Performed By: #### 2 345-7 #### DESTIN HOPKINS ([id number]) [facility] ([facility]) [address] [place] [address] 04810 MCHC (RBC) [Mass/Vol] 32.1 g/dL Normal 32.0-36.0 [facility] Comment on above: Performed By: #### 2 345-7 #### DESTIN HOPKINS ([id number]) [facility] ([facility]) [address] [place] [address] 91560 MCV (RBC) [Entitic vol] 92 fL Normal 80-100 U [facility] Comment on above: Performed By: #### 2 345-7 #### DESTIN HOPKINS ([id number]) [facility] ([facility]) [address] [place] [address] 71266 Nucleated RBC/100 WBC (Bld) [Ratio] 0.0 /100 WBCs Normal 0.0-0.0 [facility] Comment on above: Performed By: #### 2 345-7 #### DESTIN HOPKINS ([id number]) [facility] ([facility]) [address] [place] [address] 63671 Platelets (Bld) [#/Vol] 312 x10*3/uL Normal 150-450 [facility] Comment on above: Performed By: #### 2 345-7 #### DESTIN HOPKINS ([id number]) [facility] ([facility]) [address] [place] [address] 47926 RBC (Bld) [#/Vol] 5.12 x10*6/uL Normal 4.00-5.20 [facility] Comment on above: Performed By: #### 2 345-7 #### DESTIN HOPKINS ([id number]) [facility] ([facility]) [address] [place] [address] 40732 WBC (Bld) [#/Vol] 8.8 x10*3/uL Normal 4.4-11.3 [facility] Comment on above: Performed By: #### 2 345-7 #### DESTIN HOPKINS ([id number]) [facility] ([facility]) [facility] [place] [address] Cobalaminson 01-07-2024 Cobalamin (Vitamin B12) [Mass/Vol] 148 pg/mL Low 211-911 [facility] Comment on above: Performed By: #### 2 345-7 #### DESTIN HOPKINS ([id number]) [facility] ([facility]) [address] [place] [address] Comprehensive metabolic 2000 panelon 01-07-2024 Albumin BCP dye [Mass/Vol] 4.2 g/dL Normal 3.4-5.0 [facility] Comment on above: Performed By: #### 2 345-7 #### DESTIN HOPKINS ([id number]) [facility] ([facility]) [address] [place] [address] ALP [Catalytic activity/Vol] 63 U/L Normal 33-110 [facility] Comment on above: Performed By: #### 2 345-7 #### DESTIN HOPKINS ([id number]) [facility] ([facility]) [address] [place] [address] ALT With P-5'-P [Catalytic activity/Vol] 22 U/L Normal 7-45 [facility] Comment on above: Result Comment: Ame ents treated with Sulfasalazine may generate falsely decreased results for ALT. Performed By: #### 2 345-7 #### DESTIN HOPKINS ([id number]) [facility] ([facility]) [address] [place] [address] Anion gap [Moles/Vol] 12 mmol/L Normal 10-20 [facility] Comment on above: Performed By: #### 2 345-7 #### DESTIN HOPKINS ([id number]) [facility] ([facility]) [address] [place] [address] AST With P-5'-P [Catalytic activity/Vol] 15 U/L Normal 9-39 [facility] Comment on above: Performed By: #### 2 345-7 #### DESTIN HOPKINS ([id number]) [facility] ([facility]) [address] [place] [address] Bilirubin [Mass/Vol] 0.5 mg/dL Normal 0.0-1.2 [facility] Comment on above: Performed By: #### 2 345-7 #### DESTIN HOPKINS ([id number]) [facility] ([facility]) [address] [place] [address] 96470 Calcium [Mass/Vol] 9.2 mg/dL Normal 8.6-10.3 [facility] Comment on above: Performed By: #### 2 345-7 #### DESTIN HOPKINS ([id number]) [facility] ([facility]) [address] [place] [address] 73186 Chloride [Moles/Vol] 103 mmol/L Normal 98-107 [facility] Comment on above: Performed By: #### 2 345-7 #### DESTIN HOPKINS ([id number]) [facility] ([facility]) [address] [place] [address] 43460 CO2 [Moles/Vol] 29 mmol/L Normal 21-32 [facility] Comment on above: Performed By: #### 2 345-7 #### DESTIN HOPKINS ([id number]) [facility] ([facility]) [address] [place] [address] 93617 Creatinine [Mass/Vol] 0.63 mg/dL Normal 0.50-1.05 [facility] Comment on above: Performed By: #### 2 345-7 #### DESTIN HOPKINS ([id number]) [facility] ([facility]) [address] [place] [address] 62094 GFR/1.73 sq M.predicted MDRD (S/P/Bld) [Vol rate/Area] mL/min/{1.73_m2} Normal >60 [facility] Comment on above: Result Comment: Calc ulations of estimated GFR are performed using the 2020 CKD-EPI Study Refit equation without the race variable for the IDMS-Traceable creatinine methods. https://jasn.asnjournals.org/content//ASN.662 0886356 Performed By: #### 2 345-7 #### DESTIN HOPKINS ([id number]) [facility] ([facility]) [facility] [place] [address] Glucose [Mass/Vol] 89 mg/dL Normal 74-99 [facility] Comment on above: Performed By: #### 2 345-7 #### DESTIN HOPKINS ([id number]) [facility] ([facility]) [address] [place] [address] 16600 Potassium [Moles/Vol] 4.5 mmol/L Normal 3.5-5.3 [facility] Comment on above: Performed By: #### 2 345-7 #### DESTIN HOPKINS ([id number]) [facility] ([facility]) [address] [place] [address] 61092 Protein [Mass/Vol] 6.4 g/dL Normal 6.4-8.2 [facility] Comment on above: Performed By: #### 2 345-7 #### DESTIN HOPKINS ([id number]) [facility] ([facility]) [address] [place] [address] 69621 Sodium [Moles/Vol] 139 mmol/L Normal 136-145 [facility] Comment on above: Performed By: #### 2 345-7 #### DESTIN HOPKINS ([id number]) [facility] ([facility]) [address] [place] [address] 87496 Urea nitrogen [Mass/Vol] 10 mg/dL Normal 6-23 [facility] Comment on above: Performed By: #### 2 345-7 #### DESTIN HOPKINS ([id number]) [facility] ([facility]) [address] [place] [address] 89895 Cortisolon 01-07-2024 Cortisol [Mass/Vol] 15.1 ug/dL Normal 2.5-20.0 [facility] Comment on above: Performed By: #### 2 345-7 #### DESTIN HOPKINS ([id number]) [facility] ([facility]) [address] [place] [address] 17216 Dehydroepiandrosterone sulfa chuck 01-07-2024 DHEA-S [Mass/Vol] 86 ug/dL Normal 30-260 [facility] Comment on above: Order Comment: [employer] [address] [address] FAX [phone] Performed By: #### 2 345-7 #### DESTIN HOPKINS ([id number]) [facility] ([facility]) [address] [place] [address] 17318 Estradiolon 01-07-2024 E2 [Mass/Vol] 279 pg/mL Normal [facility] Comment on above: Order Comment: [employer] [facility] [address] [address] FAX [phone] Performed By: #### 2 345-7 #### DESTIN HOPKINS ([id number]) [facility] ([facility]) [address] [place] [address] [place], [place] [address] Hepatitis C virus Abon 01-06 HCV Ab Ql (S) Non-Reactive Normal Nonreactive [facility] Comment on above: Result Comment: Resu lts from patients taking biotin supplements or receiving high-dose biotin therapy should be interpreted with caution due to possible interference with this test. Providers may contact their local laboratory for further information. Performed By: #### 2 345-7 #### DESTIN HOPKINS ([id number]) [facility] ([facility]) [address] [place] [address] 66147 Progesteroneon 01-07-2024 Progesterone [Mass/Vol] 0.5 ng/mL Normal [facility] Comment on above: Result Comment: Ref Values Male <0.3- 1.2 Follicular Phase <0.3- 1.4 Luteal Phase 3.3-25.6 Mid-Luteal Phase 4.4-28.0 Postmenopausal <0.3- 0.7 Females: 1st Trimester 11.2- 90.0 2nd Trimester 25.6- 89.4 3RD Trimester 48.4-422.5 Patients receiving DHEA-S supplements may show false elevation of progesterone for results near 1.0 ng/mL. Contact laboratory at [phone] if alternative testing is needed. Performed By: #### 2 345-7 #### DESTIN HOKPINS ([id number]) [facility] ([facility]) [address] [place] [address] 75717 Testosterone Free/Testostero ne.total [Mass fraction]on 01-07-2024 Testosterone [Mass/Vol] 40 ng/dL Normal 2-45 U [facility] Comment on above: Result Comment: For additional information, please refer to http://education.amprice.Dailymotion/faq/ VbpgwIxjthgeipilgNOJYXEVTJ429 (This link is being provided for informational/ educational purposes only.) This test was developed and its analytical performance characteristics have been determined by [employer] [place], [place]. It has not been cleared or approved by the U.S. Food and Drug Administration. This assay has been validated pursuant to the CLIA regulations and is used for clinical purposes. Performed By: #### 2 345-7 #### DESTIN HOPKINS ([id number]) [facility] ([facility]) [address] [place] [address] 25840 Testosterone Free [Mass/Vol] 3.2 pg/mL Normal 0.1-6.4 [facility] Comment on above: Result Comment: This test was developed and its analytical performance characteristics have been determined by [employer] [place], [place]. It has not been cleared or approved by the U.S. Food and Drug Administration. This assay has been validated pursuant to the CLIA regulations and is used for clinical purposes. Performed By: #### 2 345-7 #### DESTIN HOPKINS ([id number]) [facility] ([facility]) [address] [place] [address] 91795 C reactive proteinon 023 CRP [Mass/Vol] 0.28 mg/dL Normal <1.00 [facility] Comment on above: Order Comment: [employer] [address] [place] [address] FAX [phone] Performed By: #### 1 988-5 #### DESTIN HOPKINS ([id number]) [facility] ([facility]) [address] [place] [address] 20355 CBC panel Auto (Bld)on 03-19 Erythrocyte distribution width (RBC) [Ratio] 12.8 % Normal 11.5-14.5 [facility] Comment on above: Order Comment: [facility] [address] [place] [address] [id number] Performed By: #### 5 8410-2 #### DESTIN HOPKINS ([id number]) [facility] ([facility]) [address] [place], [place] [address] Hematocrit (Bld) [Volume fraction] 47.0 % High 36.0-46.0 [facility] Comment on above: Order Comment: [facility] [address] [place] [address] [id number] Performed By: #### 5 8410-2 #### DESTIN HOPKINS ([id number]) [facility] ([facility]) [address] [place], [place] [address] Hemoglobin (Bld) [Mass/Vol] 15.3 g/dL Normal 12.0-16.0 [facility] Comment on above: Order Comment: [facility] [address] [place] [address] [id number] Performed By: #### 5 8410-2 #### DESTIN HOPKINS ([id number]) [facility] ([facility]) [address] [place] [address] 63287 MCH (RBC) [Entitic mass] 29.0 pg Normal 26.0-34.0 [facility] Comment on above: Order Comment: [facility] [address] [place] [address] [id number] Performed By: #### 5 8410-2 #### DESTIN HOPKINS ([id number]) [facility] ([facility]) [address] [place] [address] 64206 MCHC (RBC) [Mass/Vol] 32.6 g/dL Normal 32.0-36.0 [facility] Comment on above: Order Comment: [facility] [address] [place], [place] [address] [id number] Performed By: #### 5 8410-2 #### DESTIN HOPKINS ([id number]) [facility] ([facility]) [address] [place] [address] 74172 MCV (RBC) [Entitic vol] 89 fL Normal 80-100 U [facility] Comment on above: Order Comment: [facility] [address] [place] [address] [id number] Performed By: #### 5 8410-2 #### DESTIN HOPKINS ([id number]) [facility] ([facility]) [address] [place] [address] 04979 Nucleated RBC/100 WBC (Bld) [Ratio] 0.0 /100 WBCs Normal 0.0-0.0 [facility] Comment on above: Order Comment: [facility] [address] [place] [address] [id number] Performed By: #### 5 8410-2 #### DESTIN HOPKINS ([id number]) [facility] ([facility]) [address] [place] [address] 67657 Platelets (Bld) [#/Vol] 367 x10*3/uL Normal 150-450 [facility] Comment on above: Order Comment: [facility] [address] [place] [address] [id number] Performed By: #### 5 8410-2 #### DESTIN HOPKINS ([id number]) [facility] ([facility]) [address] [place] [address] 24481 RBC (Bld) [#/Vol] 5.28 x10*6/uL High 4.00-5.20 [facility] Comment on above: Order Comment: [facility] [address] [place] [address] [id number] Performed By: #### 5 8410-2 #### DESTIN HOPKINS ([id number]) [facility] ([facility]) [address] [place] [address] 03717 WBC (Bld) [#/Vol] 7.7 x10*3/uL Normal 4.4-11.3 [facility] Comment on above: Order Comment: [facility] [address] [place] [address] [id number] Performed By: #### 5 8410-2 #### DESTIN HOPKINS ([id number]) [facility] ([facility]) [address] [place] [address] Comprehensive metabolic 2000 panelon 03-19-2023 Albumin BCP dye [Mass/Vol] 4.5 g/dL Normal 3.4-5.0 [facility] Comment on above: Order Comment: [facility] [address] [place] [address] FAX [phone] Performed By: #### 2 4323-8 #### DESTIN HOPKINS ([id number]) [facility] ([facility]) [address] [place] [address] 24479 ALP [Catalytic activity/Vol] 67 U/L Normal 33-110 [facility] Comment on above: Order Comment: [facility] [address] [place] [address] FAX [phone] Performed By: #### 2 4323-8 #### EDSTIN HOPKINS ([id number]) [facility] ([facility]) [address] [place] [address] 06543 ALT With P-5'-P [Catalytic activity/Vol] 26 U/L Normal 7-45 [facility] Comment on above: Order Comment: [facility] [address] [address] FAX [phone] Result Comment: Ame ents treated with Sulfasalazine may generate falsely decreased results for ALT. Performed By: #### 2 4323-8 #### DESTIN HOPKINS ([id number]) [facility] ([facility]) [address] [place] [address] Anion gap [Moles/Vol] 14 mmol/L Normal 10-20 [facility] Comment on above: Order Comment: [facility] [address] [address] FAX [phone] Performed By: #### 2 4323-8 #### DESTIN HOPKINS ([id number]) [facility] ([facility]) [address] [place] [address] 32589 AST With P-5'-P [Catalytic activity/Vol] 16 U/L Normal 9-39 [facility] Comment on above: Order Comment: [facility] [address] [place] [address] FAX [phone] Performed By: #### 2 4323-8 #### DESTIN HOPKINS ([id number]) [facility] ([facility]) [address] [place] [address] 23643 Bilirubin [Mass/Vol] 0.5 mg/dL Normal 0.0-1.2 [facility] Comment on above: Order Comment: [facility] [address] [address] FAX [phone] Performed By: #### 2 4323-8 #### DESTIN HOPKINS ([id number]) [facility] ([facility]) [address] [place] [address] 74279 Calcium [Mass/Vol] 9.4 mg/dL Normal 8.6-10.3 [facility] Comment on above: Order Comment: [facility] [address] [address] FAX [phone] Performed By: #### 2 4323-8 #### DESTIN HOPKINS ([id number]) [facility] ([facility]) [address] [place] [address] 45414 Chloride [Moles/Vol] 102 mmol/L Normal 98-107 [facility] Comment on above: Order Comment: [facility] [address] [place] [address] FAX [phone] Performed By: #### 2 4323-8 #### DESTIN HOPKINS ([id number]) [facility] ([facility]) [address] [place] [address] 15632 CO2 [Moles/Vol] 27 mmol/L Normal 21-32 [facility] Comment on above: Order Comment: [facility] [address] [place] [address] FAX [phone] Performed By: #### 2 4323-8 #### DESTIN HOPKINS ([id number]) [facility] ([facility]) [address] [place] [address] 89761 Creatinine [Mass/Vol] 0.66 mg/dL Normal 0.50-1.05 [facility] Comment on above: Order Comment: [facility] [address] [place] [address] FAX [phone] Performed By: #### 2 4323-8 #### DESTIN HOPKINS ([id number]) [facility] ([facility]) [address] [place] [address] 91638 GFR/1.73 sq M.predicted MDRD (S/P/Bld) [Vol rate/Area] mL/min/{1.73_m2} Normal >60 [facility] Comment on above: Order Comment: [facility] [address] [place] [address] FAX [phone] Result Comment: Calc ulations of estimated GFR are performed using the 2020 CKD-EPI Study Refit equation without the race variable for the IDMS-Traceable creatinine methods. https://jasn.asnjournals.org/content/early//ASN.907 5785665 Performed By: #### 2 4323-8 #### DESTIN HOPKINS ([id number]) [facility] ([facility]) [address] [place] [address] 48118 Potassium [Moles/Vol] 3.8 mmol/L Normal 3.5-5.3 [facility] Comment on above: Order Comment: [facility] [address] [address] FAX [phone] Performed By: #### 2 4323-8 #### DESTIN HOPKINS ([id number]) [facility] ([facility]) [address] [place] [address] 45782 Protein [Mass/Vol] 6.8 g/dL Normal 6.4-8.2 [facility] Comment on above: Order Comment: [facility] [address] [place] [address] FAX [phone] Performed By: #### 2 4323-8 #### DESTIN HOPKINS ([id number]) [facility] ([facility]) [address] [place] [address] 94671 Sodium [Moles/Vol] 139 mmol/L Normal 136-145 [facility] Comment on above: Order Comment: [facility] [address] [address] FAX [phone] Performed By: #### 2 4323-8 #### DESTIN HOPKINS ([id number]) [facility] ([facility]) [address] [place] [address] 33184 Urea nitrogen [Mass/Vol] 17 mg/dL Normal 6-23 [facility] Comment on above: Order Comment: [facility] [address] [address] FAX [phone] Performed By: #### 2 4323-8 #### DESTIN HOPKINS ([id number]) [facility] ([facility]) [address] [place] [address] 55914 Cortisolon 03-19-2023 Cortisol [Mass/Vol] 14.5 ug/dL Normal 2.5-20.0 [facility] Comment on above: Order Comment: [facility] [address] [place] [address] FAX [phone] Performed By: #### 2 143-6 #### GERALDINE Anderson ([id number]) [facility] ([facility]) [address] [place] [address]53 Dehydroepiandrosterone sulfa chuck 03-19-2023 DHEA-S [Mass/Vol] 97 ug/dL Normal 30-260 [facility] Comment on above: Order Comment: [facility] [address] [place] [address] FAX [phone] Performed By: #### 1 988-5 #### DESTIN HOPKINS ([id number]) [facility] ([facility]) [address] [place] [address] 72002 ESR Westergren method (Bld) [Velocity]on 03-19-2023 ESR (Bld) [Velocity] 3 mm/h Normal 0-30 [facility] Comment on above: Order Comment: [facility] [address] [place] [address] FAX [phone] Performed By: #### 4 537-7 #### DESTIN HOPKINS ([id number]) [facility] ([facility]) [address] [place] [address] 60433 Estradiolon 03-19-2023 E2 [Mass/Vol] 98 pg/mL Normal [facility] Comment on above: Order Comment: [facility] [address] [place] [address] FAX [phone] Performed By: #### 1 988-5 #### DESTIN HOPKINS ([id number]) [facility] ([facility]) [address] [place] [address] Glucoseon 03-19-2023 Glucose [Mass/Vol] 91 mg/dL Normal 74-99 [facility] Comment on above: Order Comment: [employer] [address] [place] [address] FAX [phone] Performed By: #### 2 345-7 #### DESTIN HOPKINS ([id number]) [facility] ([facility]) [address] [place] [address] Performed By: #### 2 4323-8 #### DESTIN HOPKINS ([id number]) [facility] ([facility]) [address] [place] [address] HbA1c (Bld) [Mass fraction]o n 03-19-2023 Average glucose Estimated from glycated hemoglobin (Bld) [Mass/Vol] 88 mg/dL Normal Not Established [facility] Comment on above: Order Comment: [employer] [address] [place] [address] FAX [phone] Diagnosis of Diabetes-Adults Non-Diabetic: < or = 5.6% Increased risk for developing diabetes: 5.7-6.4% Diagnostic of diabetes: > or = 6.5% Monitoring of Diabetes Age (y)....................... Therapeutic Goal (%) Adults: >18.........................<7.0 Pediatrics: 13-18...................<7.5 Pediatrics: 7-12....................<8.0 Pediatrics: 0-6..................... 7.5-8.5 [place]. Diabetes Care 33(S1)May 2009 Performed By: #### 4 548-4 #### DESTIN HOPKINS ([id number]) [facility] ([facility]) [address] [place] [address] Hemoglobin A1c/Hemoglobin.to aureliano 03-19-2023 HbA1c (Bld) [Mass fraction] 4.7 % Normal see below [facility] Comment on above: Order Comment: [employer] [address] [id number] FAX [phone] Diagnosis of Diabetes-Adults Non-Diabetic: < or = 5.6% Increased risk for developing diabetes: 5.7-6.4% Diagnostic of diabetes: > or = 6.5% Monitoring of Diabetes Age (y)....................... Therapeutic Goal (%) Adults: >18.........................<7.0 Pediatrics: 13-18...................<7.5 Pediatrics: 7-12....................<8.0 Pediatrics: 0-6..................... 7.5-8.5 [place]. Diabetes Care 33(S1), May 2009 Performed By: #### 4 548-4 #### DESTIN HOPKINS ([id number]) [facility] ([facility]) [address] [place] [address] Insulinon 03-19-2023 Insulin Qn 37 u[IU]/mL High 3-25 [facility] Comment on above: Order Comment: [employer] [address] [id number] FAX [phone] Performed By: #### 1 988-5 #### DESTIN HOPKINS ([id number]) [facility] ([facility]) [facility] [place] [address] Lipid 1996 panelon 3 Cholesterol [Mass/Vol] 192 mg/dL Normal 0-199 Un [facility] Comment on above: Result Comment: Age Desirable Borderline High High 0-19 Y 0 - 169 170 - 199 >/= 200 20-24 Y 0 - 189 190 - 224 >/= 225 >24 Y 0 - 199 200 - 239 >/= 240 All ranges are based on fasting samples. Specific therapeutic targets will vary based on patient-specific cardiac risk. Pediatric guidelines reference:Pediatrics 2011, 128(S5).Adult guidelines reference: NCEP ATPIII Guidelines,TRENT 2001, 258:2486-97 Venipuncture immediately after or during the administration of Metamizole may lead to falsely low results. Testing should be performed immediately prior to Metamizole dosing. Performed By: #### 2 4331-1 #### DESTIN HOPKINS ([id number]) [facility] ([facility]) [address] [place] [address] 40173 Cholesterol in HDL [Mass/Vol] 61.0 mg/dL Normal [facility] Comment on above: Result Comment: Age Very Low Low Normal High 0-19 Y < 35 < 40 40-45 ---- 20-24 Y ---- < 40 >45 ---- >24 Y ---- < 40 40-60 >60 Performed By: #### 2 4331-1 #### DESTIN HOPKINS ([id number]) [facility] ([facility]) [address] [place] [address] 79426 Cholesterol in LDL [Mass/Vol] 107 mg/dL High <=99 [facility] Comment on above: Result Comment: Near Borderline AGE Desirable Optimal High High Very High 0-19 Y 0 - 109 --- 110-129 >/= 130 ---- 20-24 Y 0 - 119 --- 120-159 >/= 160 ---- >24 Y 0 - 99 100-129 130-159 160-189 >/=190 Performed By: #### 2 4331-1 #### DESTIN HOPKINS ([id number]) [facility] ([facility]) [address] [place] [address] 19002 Cholesterol in VLDL [Mass/Vol] 24 mg/dL Normal 0-40 [facility] Comment on above: Performed By: #### 2 4331-1 #### DESTIN HOPKINS ([id number]) [facility] ([facility]) [facility] [place] [address] CHOLESTEROL/HDL RATIO 3.1 Normal [facility] Comment on above: Result Comment: Ref Values Desirable < 3.4 High Risk > 5.0 Performed By: #### 2 4331-1 #### DESTIN HOPKINS ([id number]) [facility] ([facility]) [facility] [place] [address] NON HDL CHOLESTEROL 131 mg/dL Normal 0-149 [facility] Comment on above: Result Comment: Age Desirable Borderline High High Very High 0-19 Y 0 - 119 120 - 144 >/= 145 >/= 160 20-24 Y 0 - 149 150 - 189 >/= 190 ---- >24 Y 30 mg/dL above LDL Cholesterol goal Performed By: #### 2 4331-1 #### DESTIN HOPKINS ([id number]) [facility] ([facility]) [address] [place] [address]91 Triglyceride [Mass/Vol] 119 mg/dL Normal 0-149 [facility] Comment on above: Result Comment: Age Desirable Borderline High High Very High 0 D-90 D 19 - 174 ---- ---- ---- 91 D- 9 Y 0 - 74 75 - 99 >/= 100 ---- 10-19 Y 0 - 89 90 - 129 >/= 130 ---- 20-24 Y 0 - 114 115 - 149 >/= 150 ---- >24 Y 0 - 149 150 - 199 200- 499 >/= 500 Venipuncture immediately after or during the administration of Metamizole may lead to falsely low results. Testing should be performed immediately prior to Metamizole dosing. Performed By: #### 2 4331-1 #### DESTIN HOPKINS ([id number]) [facility] ([facility]) [address] [place] [address] 29487 Nuclear Abon 03-19-2023 Nuclear Ab Hep2 substrate Ql (S) Negative Normal Negative [facility] Comment on above: Order Comment: [facility] [address] [place] [address] FAX [phone] Result Comment: The Antinuclear Antibody ([place]) test was performed using indirect immunofluorescence assay with HEp-2 cells slide. Performed By: #### 1 988-5 #### DESTIN HOPKINS ([id number]) [facility] ([facility]) [address] [place] [address] Progesteroneon 03-19-2023 Progesterone [Mass/Vol] 14.0 ng/mL Normal [facility] Comment on above: Order Comment: [facility] [address] [phone] FAX [phone] Result Comment: Ref Values Male <0.3- 1.2 Follicular Phase <0.3- 1.4 Luteal Phase 3.3-25.6 Mid-Luteal Phase 4.4-28.0 Postmenopausal <0.3- 0.7 Females: 1st Trimester 11.2- 90.0 2nd Trimester 25.6- 89.4 3RD Trimester 48.4-422.5 Patients receiving DHEA-S supplements may show false elevation of progesterone for results near 1.0 ng/mL. Contact laboratory at [phone] if alternative testing is needed. Performed By: #### 1 988-5 #### DESTIN HOPKINS ([id number]) [facility] ([facility]) [address] [place] [address] 67616 Sex hormone binding globulin on 03-19-2023 Sex hormone binding globulin [Moles/Vol] 60 nmol/L Normal 17-125 [facility] Comment on above: Order Comment: [facility] [address] [place] [phone] FAX [phone] Result Comment: REFE RENCE INTERVAL: Sex Hormone Binding Globulin Access complete set of age- and/or gender-specific reference intervals for this test in the [facility] Test Directory ([facility]). Performed By: [facility] [address] [place] [address] Mainframe Developer: Mulugeta Cheung MD, PhD CLIA Number: [id number] Performed By: #### 1 988-5 #### DESTIN HOPKINS ([id number]) [facility] ([facility]) [address] [place] [address]459 THYROGLOBULIN AND ANTITHYROG LOBULINon 03-19-2023 THYROGLOBULIN 11.9 ng/mL Normal 1.3-31.8 [facility] Comment on above: Order Comment: [facility] [address] [place] [address] FAX [phone] Result Comment: INTE RPRETIVE INFORMATION: Thyroglobulin, Serum or Plasma Specimens negative for thyroglobulin antibodies (TgAb) are tested for thyroglobulin (Tg) by chemiluminescent immunoassay (KAMLESH) using the [employer] Access DxI method. Specimens with TgAb results above the upper reference limit are tested for Tg by high-performance liquid chromatography-tandem mass spectrometry (LC-MS/MS). Results obtained with different test methods or kits cannot be used interchangeably. Tg results, regardless of concentration, should not be interpreted as absolute evidence for the presence or absence of papillary or follicular thyroid cancer. Tg testing is not recommended for use as a screening procedure to detect the presence of thyroid cancer in the general population. Performed By: #### 1 988-5 #### DESTIN HOPKINS ([id number]) [facility] ([facility]) [address] [place] [address] THYROGLOBULIN AB (IU/ML) IN SER/PLAS <0.9 Normal 0.0-4.0 [facility] Comment on above: Order Comment: [facility] [address] [place] [address] FAX [phone] Result Comment: INTE RPRETIVE INFORMATION: Thyroglobulin Antibody A value of 4.0 IU/mL or less indicates a negative result for thyroglobulin antibodies. The Thyroglobulin Antibody assay is being performed using the [employer] Access DxI method. Performed By: #### 1 988-5 #### DESTIN HOPKINS ([id number]) [facility] ([facility]) [address] [place] [address] 24925 THYROGLOBULIN LC-MS/MS Not Applicable Normal 1.3-31.8 [facility] Comment on above: Order Comment: [facility] [address] [place] [address] FAX [phone] Result Comment: INTE RPRETIVE INFORMATION: Thyroglobulin by LC-MS/MS, Serum/Plasma Lower limit of detection for Thyroglobulin by LC-MS/MS is 0.5 ng/mL. This test was developed and its performance characteristics determined by [facility]. It has not been cleared or approved by the US Food and Drug Administration. This test was performed in a CLIA certified laboratory and is intended for clinical purposes. Performed By: [facility] [address] [place] [address]44 Mainframe Developer: Mulugeta Cheung MD, PhD CLIA Number: [id number] Performed By: #### 1 988-5 #### DESTIN HOPKINS ([id number]) [facility] ([facility]) [address] [place] [address] 58725 Testosterone Free/Testostero ne.total [Mass fraction]on 03-19-2023 Testosterone [Mass/Vol] 28 ng/dL Normal 2-45 U [facility] Comment on above: Order Comment: [facility] [address] [place] [address] FAX [phone] Result Comment: For additional information, please refer to http://education.amprice.Dailymotion/faq/ SuxlrSebpmkccxzxhZKVFTZLQB947 (This link is being provided for informational/ educational purposes only.) This test was developed and its analytical performance characteristics have been determined by [employer] [place], [place]. It has not been cleared or approved by the U.S. Food and Drug Administration. This assay has been validated pursuant to the CLIA regulations and is used for clinical purposes. Performed By: #### 2 345-7 #### DESTIN HOPKINS ([id number]) [facility] ([facility]) [address] [place] [address] 46291 Testosterone Free [Mass/Vol] 2.7 pg/mL Normal 0.1-6.4 [facility] Comment on above: Order Comment: [facility] [address] [address] FAX [phone] Result Comment: This test was developed and its analytical performance characteristics have been determined by [employer] [place]. It has not been cleared or approved by the U.S. Food and Drug Administration. This assay has been validated pursuant to the CLIA regulations and is used for clinical purposes. Performed By: #### 2 345-7 #### DESTIN HOPKINS ([id number]) [facility] ([facility]) [address] [place] [address] Thyroperoxidase Abon 023 TPO Ab Qn [IU]/mL Normal <=60 [facility] Comment on above: Order Comment: [facility] [address] [place] [address] FAX [phone] Performed By: #### 1 988-5 #### DESTIN HOPKINS ([id number]) [facility] ([facility]) [address] [place] [address] Thyrotropinon 03-19-2023 TSH Qn 2.03 m[IU]/L Normal 0.44-3.98 [facility] Comment on above: Order Comment: TSH t esting is performed using different testing methodology at [facility] than at other [facility]. Direct result comparisons should only be made within the same method. Performed By: #### 3 016-3 #### DESTIN HOPKINS ([id number]) [facility] ([facility]) [address] [place], [place] [address] Thyroxine.freeon 03-19-2023 Free T4 [Mass/Vol] 0.80 ng/dL Normal 0.61-1.12 [facility] Comment on above: Order Comment: [facility] [address] [place] [address] FAX [phone] Thyroxine Free testing is performed using different testing methodology at [facility] than at other [facility]. Direct result comparisons should only be made within the same method. Biotin can cause falsely elevated free T4 results. Patients taking a Biotin dose of up to 10 mg/day should refrain from taking Biotin for 24 hours before sample collection. Patient taking a Biotin dose of >10 mg/day should consult with their physician or the laboratory before the blood draw. Performed By: #### 3 024-7 #### DESTIN HOPKINS ([id number]) [facility] ([facility]) [address] [place], [place] [address] Triiodothyronineon T3 [Mass/Vol] 144 ng/dL Normal 60-200 [facility] Comment on above: Order Comment: [employer] [place] [address] FAX [phone] Performed By: #### 1 988-5 #### DESTIN HOPKINS ([id number]) [facility] ([facility]) [address] [place] [address] Triiodothyronine.freeon 03-06 Free T3 [Mass/Vol] 3.3 pg/mL Normal 2.3-4.2 [facility] Comment on above: Order Comment: [employer] [place] [address] FAX [phone] Performed By: #### 1 988-5 #### DESTIN HOPKINS ([id number]) [facility] ([facility]) [address] [place] [address] APTTon 07-30-2022 aPTT Coag (Bld) [Time] 30 s Normal 26 - 39 [facility] Comment on above: Result Comment: THE APTT IS NO LONGER USED FOR MONITORING UNFRACTIONATED HEPARIN THERAPY. FOR MONITORING HEPARIN THERAPY, USE THE HEPARIN ASSAY. Performed By: #### A PTT #### [place] [address] CBCon 07-30-2022 Erythrocyte distribution width (RBC) [Ratio] 13.0 % Normal 11.5 - 14.5 [facility] Comment on above: Performed By: #### C BC #### [place] [address] Hematocrit (Bld) [Volume fraction] 43.1 % Normal 36.0 - 46.0 [facility] Comment on above: Performed By: #### C BC #### [address] [address] Hemoglobin (Bld) [Mass/Vol] 14.6 g/dL Normal 12.0 - 16.0 [facility] Comment on above: Performed By: #### C BC #### [address] [address] MCHC (RBC) [Mass/Vol] 33.9 g/dL Normal 32.0 - 36.0 [facility] Comment on above: Performed By: #### C BC #### [address] [address] MCV (RBC) [Entitic vol] 85 fL Normal 80 - 100 [facility] Comment on above: Performed By: #### C BC #### [address] [address] Platelets (Bld) [#/Vol] 321 10*3/uL Normal 150 - 450 [facility] Comment on above: Performed By: #### C BC #### [address] [address] RBC 5.07 x10E12/L Normal 4.00 - 5.20 [facility] Comment on above: Performed By: #### C BC #### [address] [address] WBC (Bld) [#/Vol] 7.1 10*3/uL Normal 4.4 - 11.3 [facility] Comment on above: Performed By: #### C BC #### [address] [address] COMPREHENSIVE PANELon 2022 Albumin [Mass/Vol] 4.4 g/dL Normal 3.4 - 5.0 [facility] Comment on above: Performed By: #### C MP #### [address] [address] ALP [Catalytic activity/Vol] 61 U/L Normal 33 - 110 [facility] Comment on above: Performed By: #### C MP #### [address] [address] ALT [Catalytic activity/Vol] 31 U/L Normal 7 - 45 [facility] Comment on above: Result Comment: Ame ents treated with Sulfasalazine may generate falsely decreased results for ALT. Performed By: #### C MP #### [address] [address] Anion gap [Moles/Vol] 11 mmol/L Normal 10 - 20 [facility] Comment on above: Performed By: #### C MP #### [address] [address] AST [Catalytic activity/Vol] 18 U/L Normal 9 - 39 [facility] Comment on above: Performed By: #### C MP #### [address] [address] Bilirubin [Mass/Vol] 0.8 mg/dL Normal 0.0 - 1.2 [facility] Comment on above: Performed By: #### C MP #### [address] [address] Calcium [Mass/Vol] 9.4 mg/dL Normal 8.6 - 10.3 [facility] Comment on above: Performed By: #### C MP #### [address] [address] Chloride [Moles/Vol] 103 mmol/L Normal 98 - 107 [facility] Comment on above: Performed By: #### C MP #### [address] [address] Creatinine [Mass/Vol] 0.56 mg/dL Normal 0.50 - 1.05 [facility] Comment on above: Performed By: #### C MP #### [address] [address] eGFR FEMALE >90 Normal >90 [facility] Comment on above: Result Comment: CALC ULATIONS OF ESTIMATED GFR ARE PERFORMED USING THE 2020 CKD-EPI STUDY REFIT EQUATION WITHOUT THE RACE VARIABLE FOR THE IDMS-TRACEABLE CREATININE METHODS. https://jasn.asnjournals.org/content//ASN.035 2372666 Performed By: #### C MP #### [address] [address] Glucose [Mass/Vol] 84 mg/dL Normal 74 - 99 [facility] Comment on above: Performed By: #### C MP #### [address] [address] HCO3 (Bld) [Moles/Vol] 30 mmol/L Normal 21 - 32 [facility] Comment on above: Performed By: #### C MP #### [address] [address] Potassium [Moles/Vol] 3.5 mmol/L Normal 3.5 - 5.3 [facility] Comment on above: Performed By: #### C MP #### [address] [address] Protein [Mass/Vol] 6.7 g/dL Normal 6.4 - 8.2 [facility] Comment on above: Performed By: #### C MP #### [address] [address] Sodium [Moles/Vol] 140 mmol/L Normal 136 - 145 [facility] Comment on above: Performed By: #### C MP #### [address] [address] Urea nitrogen [Mass/Vol] 12 mg/dL Normal 6 - 23 [facility] Comment on above: Performed By: #### C MP #### [address] [address] Lab Specimen Source Normal [facility] Comment on above: Performed By: #### C MP #### [address] [address] Performed By: #### C BC #### [address] [address] Performed By: #### A PTT #### [address] [address] Performed By: #### P TINR #### [address] [address] HEMOGLOBIN A1Con 07-30-2022 Glucose [Mass/Vol] 91 mg/dL Normal [facility] Comment on above: Performed By: #### H BA1E #### [address] [address] HbA1c (Bld) [Mass fraction] 4.8 % Normal [facility] Comment on above: Result Comment: Diag nosis of Diabetes-Adults Non-Diabetic: < or = 5.6% Increased risk for developing diabetes: 5.7-6.4% Diagnostic of diabetes: > or = 6.5% . Monitoring of Diabetes Age (y) Therapeutic Goal (%) Adults: >18 <7.0 Pediatrics: 13-18 <7.5 7-12 <8.0 0- 6 7.5-8.5 [place] [employer]. Diabetes Care 33(S1), May 2009. Performed By: #### H BA1E #### [address] [address] PT/INRon 07-30-2022 PT Coag (PPP) [Time] 12.1 s Normal 9.8 - 13.4 [facility] Comment on above: Performed By: #### P TINR #### [address] [address] PT, INR 1.0 Normal 0.9 - 1.1 [facility] Comment on above: Performed By: #### P TINR #### [address] [address] TESTOST,FREE AND TOTALon TESTOSTERONE TOT.LC/MS/MS 20 ng/dL Normal 2-45 [facility] Comment on above: Result Comment: For additional information, please refer to http://education.amprice.com/faq/ BgfvpZxpzogmbgwgwNEYWTOAQV713 (This link is being provided for informational/ educational purposes only.) This test was developed and its analytical performance characteristics have been determined by [employer] [place], [place]. It has not been cleared or approved by the U.S. Food and Drug Administration. This assay has been validated pursuant to the CLIA regulations and is used for clinical purposes. Performed By: #### I NSUL #### [facility] [address] [place] [address] TESTOSTERONE,FREE 1.7 pg/mL Normal 0.1-6.4 [facility] Comment on above: Result Comment: This test was developed and its analytical performance characteristics have been determined by [facility] [place] It has not been cleared or approved by the U.S. Food and Drug Administration. This assay has been validated pursuant to the CLIA regulations and is used for clinical purposes. Performed By: #### I NSUL #### [facility] [address] [place] [address] SEX HORMONE BINDING GLOon SEX HORMONE BINDING JOSE M 39.6 nmol/L Normal 16.8 - 125. 2 [facility] Comment on above: Result Comment: Test Performed by: [facility] [address] [place] [address] Stock Replenisher: Michi Gutierrez M.D. Ph.D.; CLIA# [id number] Performed By: #### S HBGI #### [facility] [address] [place] [address] CORTISOL, A.M.on 03-28-2022 CORTISOL, A.M. 15.5 ug/dL Normal 5.0 - 20.0 [facility] Comment on above: Performed By: #### I NSUL #### [facility] [address] [place] [address] DHEA SULFATEon 03-28-2022 DHEA SULFATE 91 ug/dL Normal 30 - 260 [facility] Comment on above: Result Comment: MATU RITY-BASED REFERENCE RANGES: PUBERTAL (SELENE) STAGE MALE FEMALE I 5 - 265 5 - 125 II 15 - 380 15 - 150 III 60 - 505 20 - 535 IV 65 - 560 35 - 485 V 165 - 500 75 - 530 Biotin interference may cause falsely elevated results. Patients taking a Biotin dose of up to 5 mg/day should refrain from taking Biotin for 24 hours before sample collection. Providers may contact their local laboratory for further information. Performed By: #### D MAKAYLA #### [facility] [address] [place] [address] ESTRADIOLon 03-28-2022 ESTRADIOL 128 pg/mL Normal [facility] Comment on above: Result Comment: REF VALUES FOLLICULAR PHASE 20-144 MID CYCLE 64-357 LUTEAL PHASE 56-214 POSTMENOPAUSE < 32 PREPUBERTY < 20 FEMALE 10-18Y 8-110 MALE 10-18Y < 20 ADULT MALE < 40 Performed By: #### E STRA #### [facility] [address] [place] [address] PROGESTERONEon 03-28-2022 PROGESTERONE 7.3 ng/mL Normal [facility] Comment on above: Result Comment: REF VALUES MALE <0.3- 1.2 FOLLICULAR PHASE <0.3- 1.4 LUTEAL PHASE 3.3-25.6 MID-LUTEAL PHASE 4.4-28.0 POSTMENOPAUSAL <0.3- 0.7 FEMALES: 1ST TRIMESTER 11.2- 90.0 2ND TRIMESTER 25.6- 89.4 3RD TRIMESTER 48.4-422.5 . Patients receiving DHEA-S supplements may show false elevation of progesterone for results near 1.0 ng/mL. Contact laboratory at [phone] if alternative testing is needed. Performed By: #### P JENNIFER #### [facility] [address] [place] [address] CBCon 01-01-2022 Erythrocyte distribution width (RBC) [Ratio] 13.6 % Normal 11.5 - 14.5 [facility] Comment on above: Performed By: #### C BC #### [address] [address] Hematocrit (Bld) [Volume fraction] 44.9 % Normal 36.0 - 46.0 [facility] Comment on above: Performed By: #### C BC #### [address] [address] Hemoglobin (Bld) [Mass/Vol] 14.5 g/dL Normal 12.0 - 16.0 [facility] Comment on above: Performed By: #### C BC #### [address] [address] MCHC (RBC) [Mass/Vol] 32.4 g/dL Normal 32.0 - 36.0 [facility] Comment on above: Performed By: #### C BC #### [address] [address] MCV (RBC) [Entitic vol] 86 fL Normal 80 - 100 [facility] Comment on above: Performed By: #### C BC #### [address] [address] Platelets (Bld) [#/Vol] 351 10*3/uL Normal 150 - 450 [facility] Comment on above: Performed By: #### C BC #### [address] [address] RBC 5.21 x10E12/L High 4.00 - 5.20 [facility] Comment on above: Performed By: #### C BC #### [address] [address] WBC (Bld) [#/Vol] 9.1 10*3/uL Normal 4.4 - 11.3 [facility] Comment on above: Performed By: #### C BC #### [address] [address] COMPREHENSIVE PANELon 2021 Albumin [Mass/Vol] 4.5 g/dL Normal 3.4 - 5.0 [facility] Comment on above: Performed By: #### I NSUL #### [facility] [address] [place] [address] ALP [Catalytic activity/Vol] 72 U/L Normal 33 - 110 [facility] Comment on above: Performed By: #### I NSUL #### [facility] [address] [place] [address] ALT [Catalytic activity/Vol] 45 U/L Normal 7 - 45 [facility] Comment on above: Result Comment: Ame ents treated with Sulfasalazine may generate falsely decreased results for ALT. Performed By: #### I NSUL #### [facility] [address] [place] [address] Anion gap [Moles/Vol] 13 mmol/L Normal 10 - 20 [facility] Comment on above: Performed By: #### I NSUL #### [facility] [address] [place] [address] AST [Catalytic activity/Vol] 26 U/L Normal 9 - 39 [facility] Comment on above: Performed By: #### I NSUL #### [facility] [address] [place] [address] Bilirubin [Mass/Vol] 0.7 mg/dL Normal 0.0 - 1.2 [facility] Comment on above: Performed By: #### I NSUL #### [facility] [address] [place] [address] Calcium [Mass/Vol] 9.4 mg/dL Normal 8.6 - 10.3 [facility] Comment on above: Performed By: #### I NSUL #### [facility] [address] [place] [address] Chloride [Moles/Vol] 100 mmol/L Normal 98 - 107 [facility] Comment on above: Performed By: #### I NSUL #### [facility] [address] [place] [address] Creatinine [Mass/Vol] 0.63 mg/dL Normal 0.50 - 1.05 [facility] Comment on above: Performed By: #### I NSUL #### [facility] [address] [place] [address] eGFR FEMALE >90 Normal >90 [facility] Comment on above: Result Comment: CALC ULATIONS OF ESTIMATED GFR ARE PERFORMED USING THE 2020 CKD-EPI STUDY REFIT EQUATION WITHOUT THE RACE VARIABLE FOR THE IDMS-TRACEABLE CREATININE METHODS. https://jasn.asnjournals.org/content//ASN.155 6475328 Performed By: #### I NSUL #### [facility] [address] [place] [address] Glucose [Mass/Vol] 80 mg/dL Normal 74 - 99 [facility] Comment on above: Performed By: #### I NSUL #### [facility] [address] [place] [address] HCO3 (Bld) [Moles/Vol] 28 mmol/L Normal 21 - 32 [facility] Comment on above: Performed By: #### I NSUL #### [facility] [address] [place] [address] Potassium [Moles/Vol] 3.8 mmol/L Normal 3.5 - 5.3 [facility] Comment on above: Performed By: #### I NSUL #### [facility] [address] [place] [address] Protein [Mass/Vol] 7.1 g/dL Normal 6.4 - 8.2 [facility] Comment on above: Performed By: #### I NSUL #### [facility] [address] [place] [address] Sodium [Moles/Vol] 137 mmol/L Normal 136 - 145 [facility] Comment on above: Performed By: #### I NSUL #### [facility] [address] [place] [address] Urea nitrogen [Mass/Vol] 13 mg/dL Normal 6 - 23 [facility] Comment on above: Performed By: #### I NSUL #### [facility] [address] [place] [address] LIPID PANEL (CORONARY RISK 2 )on 01-01-2022 Cholesterol [Mass/Vol] 160 mg/dL Normal 0 - 199 [facility] Comment on above: Result Comment: . AGE DESIRABLE BORDERLINE HIGH HIGH 0-19 Y 0 - 169 170 - 199 >/= 200 20-24 Y 0 - 189 190 - 224 >/= 225 >24 Y 0 - 199 200 - 239 >/= 240 All ranges are based on fasting samples. Specific therapeutic targets will vary based on patient-specific cardiac risk. . Pediatric guidelines reference:Pediatrics 2011, 128(S5). Adult guidelines reference: NCEP ATPIII Guidelines, TRENT 2001, 258:2486-97 . Venipuncture immediately after or during the administration of Metamizole may lead to falsely low results. Testing should be performed immediately prior to Metamizole dosing. Performed By: #### L IPID #### [id number] [address] Cholesterol in HDL [Mass/Vol] 60.0 mg/dL Normal [facility] Comment on above: Result Comment: . AGE VERY LOW LOW NORMAL HIGH 0-19 Y < 35 < 40 40-45 ---- 20-24 Y ---- < 40 >45 ---- >24 Y ---- < 40 40-60 >60 . Performed By: #### L IPID #### [address] [address] Cholesterol in LDL [Mass/Vol] 82 mg/dL Normal 0 - 99 [facility] Comment on above: Result Comment: . NEAR BORD AGE DESIRABLE OPTIMAL HIGH HIGH VERY HIGH 0-19 Y 0 - 109 --- 110-129 >/= 130 ---- 20-24 Y 0 - 119 --- 120-159 >/= 160 ---- >24 Y 0 - 99 100-129 130-159 160-189 >/=190 . Performed By: #### L IPID #### [address] [address] Cholesterol in VLDL [Mass/Vol] 18 mg/dL Normal 0 - 40 [facility] Comment on above: Performed By: #### L IPID #### [address] [address] Cholesterol.total/Choles terol in HDL [Mass ratio] 2.7 {ratio} Normal [facility] Comment on above: Result Comment: REF VALUES DESIRABLE < 3.4 HIGH RISK > 5.0 Performed By: #### L IPID #### [address] [address] Triglyceride [Mass/Vol] 91 mg/dL Normal 0 - 149 [facility] Comment on above: Result Comment: . AGE DESIRABLE BORDERLINE HIGH HIGH VERY HIGH 0 D-90 D 19 - 174 ---- ---- ---- 91 D- 9 Y 0 - 74 75 - 99 >/= 100 ---- 10-19 Y 0 - 89 90 - 129 >/= 130 ---- 20-24 Y 0 - 114 115 - 149 >/= 150 ---- >24 Y 0 - 149 150 - 199 200- 499 >/= 500 . Venipuncture immediately after or during the administration of Metamizole may lead to falsely low results. Testing should be performed immediately prior to Metamizole dosing. Performed By: #### L IPID #### [facility] [address] [place] [address] Laboratory - Chemistry and C hemistry - challengeon 01-01-2022 Albumin BCP dye [Mass/Vol] 4.5 g/dL 3.4 - 5.0 [facility] Work Phone: ALP [Catalytic activity/Vol] 72 U/L 33 - 110 [facility] Work Phone: ALT With P-5'-P [Catalytic activity/Vol] 45 U/L 7 - 45 [employer] [facility] Work Phone: Comment on above: Patients treated wit h Sulfasalazine may generate falsely decreased results for ALT. Anion gap [Moles/Vol] 13 mmol/L 10 - 20 [facility] [employer] [facility] Work Phone: AST With P-5'-P [Catalytic activity/Vol] 26 U/L 9 - 39 [employer] [facility] Work Phone: Bilirubin [Mass/Vol] 0.7 mg/dL 0.0 - 1.2 [employer] [facility] Work Phone: Calcium [Mass/Vol] 9.4 mg/dL 8.6 - 10.3 [facility] ical [employer] [facility] Work Phone: Chloride [Moles/Vol] 100 mmol/L 98 - 107 [employer] [facility] Work Phone: CO2 [Moles/Vol] 28 mmol/L 21 - 32 [employer] [facility] Work Phone: Creatinine [Mass/Vol] 0.63 mg/dL See Below [employer] [facility] Work Phone: Comment on above: Reference Range: 0.5 0 - 1.05 Glucose [Mass/Vol] 80 mg/dL 74 - 99 [facility] Work Phone: Potassium [Moles/Vol] 3.8 mmol/L 3.5 - 5.3 [facility] Work Phone: Protein [Mass/Vol] 7.1 g/dL 6.4 - 8.2 [facility] Work Phone: Sodium [Moles/Vol] 137 mmol/L 136 - 145 [facility] Work Phone: Urea nitrogen [Mass/Vol] 13 mg/dL 6 - 23 [facility] Work Phone: Laboratory - Hematology and Cell countson 01-01-2022 Erythrocyte distribution width (RBC) [Ratio] 13.6 % See Below [facility] Work Phone: Comment on above: Reference Range: 11. 5 - 14.5 Hematocrit (Bld) [Volume fraction] 44.9 % See Below [facility] Work Phone: Comment on above: Reference Range: 36. 0 - 46.0 Hemoglobin (Bld) [Mass/Vol] 14.5 g/dL See Below [facility] Work Phone: Comment on above: Reference Range: 12. 0 - 16.0 MCHC (RBC) [Mass/Vol] 32.4 g/dL See Below [facility] Work Phone: Comment on above: Reference Range: 32. 0 - 36.0 MCV (RBC) [Entitic vol] 86 fL 80 - 100 M -[facility] Work Phone: Platelets (Bld) [#/Vol] 351 10*3/uL 150 - 450 [facility] Work Phone: [phone] RBC (Bld) [#/Vol] 5.21 {x10E12/L} above high threshold See Below [facility] Work Phone: Comment on above: Reference Range: 4.0 0 - 5.20 WBC (Bld) [#/Vol] 9.1 10*3/uL 4.4 - 11.3 [facility] Work Phone: Lipid Panelon 01-01-2022 Cholesterol [Mass/Vol] 160 mg/dL 0 - 199 [employer] [facility] Work Phone: Comment on above: . AGE DESIRABLE BORD LUISA HIGH HIGH 0-19 Y 0 - 169 170 - 199 >/= 200 20-24 Y 0 - 189 190 - 224 >/= 225 >24 Y 0 - 199 200 - 239 >/= 240 All ranges are based on fasting samples. Specific therapeutic targets will vary based on patient-specific cardiac risk.. Pediatric guidelines reference:Pediatrics 2011, 128(S5). Adult guidelines reference: NCEP ATPIII Guidelines, TRENT 2001, 258:2486-97. Venipuncture immediately after or during the administration of Metamizole may lead to falsely low results. Testing should be performed immediately prior to Metamizole dosing. Cholesterol in HDL [Mass/Vol] 60.0 mg/dL [employer] [facility] Work Phone: Comment on above: . AGE VERY LOW LOW N ORMAL HIGH 0-19 Y < 35 < 40 40-45 ---- 20-24 Y ---- < 40 >45 ---- >24 Y ---- < 40 40-60 >60. Cholesterol in LDL [Mass/Vol] 82 mg/dL 0 - 99 [facility] Work Phone: Comment on above: . NEAR BORD AGE PAULO RABLE OPTIMAL HIGH HIGH VERY HIGH 0-19 Y 0 - 109 --- 110-129 >/= 130 ---- 20-24 Y 0 - 119 --- 120-159 >/= 160 ---- >24 Y 0 - 99 100-129 130-159 160-189 >/=190. Cholesterol.total/Choles terol in HDL [Mass ratio] 2.7 {ratio} [employer] [facility] Work Phone: Comment on above: REF VALUESDESIRABLE < 3.4HIGH RISK > 5.0 Triglyceride [Mass/Vol] 91 mg/dL 0 - 149 M [employer] [facility] Work Phone: Comment on above: . AGE DESIRABLE BORD LUISA HIGH HIGH VERY HIGH 0 D-90 D 19 - 174 ---- ---- ----91 D- 9 Y 0 - 74 75 - 99 >/= 100 ---- 10-19 Y 0 - 89 90 - 129 >/= 130 ---- 20-24 Y 0 - 114 115 - 149 >/= 150 ---- >24 Y 0 - 149 150 - 199 200- 499 >/= 500. Venipuncture immediately after or during the administration of Metamizole may lead to falsely low results. Testing should be performed immediately prior to Metamizole dosing. Lipid Panel 18 mg/dL 0 - 40 [employer] [facility] Work Phone: No Panel Informationon 01-01 >90 >90 [employer] [facility] Work Phone: Comment on above: CALCULATIONS OF CLARENCE MATED GFR ARE PERFORMED USING THE 2020 CKD-EPI STUDY REFIT EQUATION WITHOUT THE RACE VARIABLE FOR THE IDMS-TRACEABLE CREATININE METHODS.https://jasn.asnjournals.org/content/ /ASN.4696084741 Office Visit (Primary Care T xt/Forms)on 01-01-2022 Follow-up visit Diagnoses/Problems Assessed Overweight with body mass index (BMI) of 29 to 29.9 in adult (278.02,V85.25) (E66.3,Z68.29) Benign hypertension (401.1) (I10) Heart palpitations (785.1) (R00.2) Mild intermittent asthma without complication (493.90) (J45.20) Orders Benign hypertension Complete Blood Count; Status:Active; Requested for:01Jan2022; Comprehensive Metabolic Panel; Status:Active; Requested for:01Jan2022; Lipid Panel; Status:Active; Requested for:01Jan2022; Health Maintenance Renew: hydroCHLOROthiazide 12.5 MG Oral Tablet; TAKE 1 TABLET DAILY Renew: Losartan Potassium 50 MG Oral Tablet; TAKE 1 TABLET DAILY Renew: Metoprolol Succinate ER 25 MG Oral Tablet Extended Release 24 Hour; TAKE 1 TABLET DAILY Renew: Montelukast Sodium 10 MG Oral Tablet (Singulair); TAKE 1 TABLET DAILY Provider Impressions Provider Impressions Free Text Note Form: RTC 1 Y ck cbc/cmp/lipid panel Time Code: 1. Preparation for patient's visit (reviewing chart, current medical record, outside health provider records, previous history, exam, test, procedure, and medications) 2. Fmyl-gq-[id number] encounter obtaining history from patient/family/caregi vers; performing evaluation and exam; ordering tests or procedures; referring and communicating with other health care providers; counseling and education of the patient/family/caregi vers; independently interpreting results (tests, labs, procedures, imaging) and communicating and explaining results to the patient/family/caregi vers 3. Coordination of care; preparing and printing discharge instructions and any educational material for the patient/family/caregi vers. Documenting clinical information into the electronic medical record 4. Reviewing OARRS as needed MDM: 1) complexity: more than 1 stable chronic condition addressed or 1 acute illness addressed. 2) Data: tests interpreted and/or ordered, took independent history or records reviewed. 3) Risk: moderate risk due to nature of medical conditions/comorbidit y or medications ordered or surgical or procedural referral Chief Complaint YEARLY FU HTN PALPATIONS History of Present Illness Sandra comes to the office for a 1 year office visit and medication refills Mild intermittent asthma: Albuterol used twice in last yr; singulair effective Hypertension -NSAID use { occasionally for menstrual cramps }, NA intake { - }, OTC cold remedies {occasional Sudafed for ETD when traveling }, smoking { - }, Alcohol { - }, physical activity { + walking/swimming } blurred/double vision { wears glasses }, lightheadedness { - }, dizziness { - }, previous syncopal episodes { - }, headache { - }, chest pain { - }, palpations { -; h/o palpitations improved on beta-nini }, SOB { - } Checking BP @ home { + } - SBP ranges: 110's DBP Ranges: 60's Taking medication as prescribed: { + }, omitted doses { - } Breast/cervical cancer screening: through [facility] in [place] Colorectal cancer screening: Had colonoscopy in 2020; repeat in 10Y; IBS sx better + perimenopause symptoms AND noted to have PreDM with high insulin levels through [employer] and was started on Metformin AND Jardiance. Feeling better as she has been able to start losing some weight, the night sweats have improved and her hair is starting to grow back. Last HgbAic 5.2% Review of Systems Constitutional: recent 12# lb weight loss, but not feeling tired, no fever, not feeling poorly and no chills. ENT:. + h/o ETD with air travel-decongestant effective. Cardiovascular: no chest pain, no palpitations, no lower extremity edema and no shortness of breath. Respiratory: no cough and no wheezing. Gastrointestinal: no abdominal pain, no constipation, no diarrhea, no rectal pain and no blood in stools . h/o IBS. Neurological: no headache, no dizziness and no numbness or tingling. Endocrine: weight change, hair thinning/loss and hot flashes. Active Problems Problems Benign hypertension (401.1) (I10) Class 1 obesity due to excess calories without serious comorbidity with body mass index (BMI) of 31.0 to 31.9 in adult (278.00,V85.31) (E66.09,Z68.31) COVID-19 (079.89) (U07.1) Diabetes (250.00) (E11.9) Encounter for immunization (V03.89) (Z23) Heart palpitations (785.1) (R00.2) History of vitamin D deficiency (V12.1) (Z86.39) Mild intermittent asthma without complication (493.90) (J45.20) Obesity (278.00) (E66.9) Screening for colon cancer (V76.51) (Z12.11) Symptoms consistent with irritable bowel syndrome (564.1) (K58.9) Surgical History Problems History of Breast reduction History of section History of Cholecystectomy History of Colonoscopy Family History Mother Family history of asthma (V17.5) (Z82.5) Family history of cerebrovascular accident (CVA) (V17.1) (Z82.3) Family history of coronary artery disease (V17.3) (Z82.49) Family history of diabetes mellitus (V18.0) (Z83.3) Family history of hypertension (V17.49) (Z82.49) Family history of malignant neoplasm (V16.9 (more content not included)... Normal [facility] Tobacco Screening.on 022 Adult depression screening assessment No -[employer] Work Phone: Fall risk assessment a) No falls within the last year MP-[employer] Work Phone: Tobacco use status CPHS b) No M -[employer] [facility] Work Phone: Provider Note - ED v3on 12-04 Provider Note - ED v3 Provider Note: Chart Review: HISTORY OF PRESENTING ILLNESS SANDRA is a 51 year old Female and was seen by me at 15-Dec-2021 15:15 for a chief complaint of (ear pain). Other complaints include: Patient presents for evaluation of right ear pain. Patient states has been present for several days. Patient does have seasonal allergies and flies quite often. Patient attempted multiple wqqe-zev-qpctymi remedies without success. Patient states he may have even been some drainage. No fever, chills, nausea, preceding URI, or other constitutional signs and symptoms.. Triage Information: Most recent Vital Sign Value Date PAST MEDICAL HISTORY ALLERGIES/INTOLERANCE S: Allergy Allergen: codeine Type: Drug Reaction: Rash Allergen: penicillin Type: Drug Reaction: Rash HEALTH HISTORY: Medical History Name:Hypertension Code:I10 Name:Asthma Code:J45.909 OUTPATIENT MEDICATIONS: Home Medications Review Status for Reconciliation: Complete Med Status: Patient Currently Takes Medications Drug Name: hydroCHLOROthiazide 12.5 mg oral capsule Instructions: 1 cap(s) orally once a day Drug Name: losartan 50 mg oral tablet Instructions: 1 tab(s) orally once a day Drug Name: metoprolol tartrate 25 mg oral tablet Instructions: 1 tab(s) orally 2 times a day Drug Name: montelukast 10 mg oral tablet Instructions: 1 tab(s) orally once a day Drug Name: Jardiance Instructions: null Drug Name: metFORMIN Instructions: null SIGNIFICANT EVENTS: Immunizations Description:SARS-CoV- 2 (COVID-19) Additional Notes:ISC8 [id number] Description:SARS-CoV- 2 (COVID-19) Additional Notes:ISC8 [id number] REVIEW OF SYSTEMS REVIEW OF SYSTEMS: Comments Review of Systems Constitutional: See HPI ENT: See HPI Respiratory: See HPI Neurologic: Alert and oriented X4, No numbness, No tingling. All other systems are negative PHYSICAL EXAM CONSTITUTIONAL: Well appearing, well nourished, awake, alert, oriented to person, place, time/situation and in no apparent distress. HENMT: Bilateral tympanic membranes are unremarkable; bilateral auditory canals are unremarkable; right eustachian tube is tender to palpation; unremarkable oropharynx; no nasal congestion or sinus tenderness EYES: Clear bilaterally, pupils equal, round and reactive to light. RESPIRATORY: Breath sounds clear and equal bilaterally. MUSCULOSKELETAL: Spine appears normal, range of motion is not limited, no muscle or joint tenderness. NEUROLOGICAL: Alert and oriented, no focal deficits, no motor or sensory deficits. SKIN: Skin normal color for race, warm, dry and intact. No evidence of trauma. MDM MDM/ED COURSE: Exam is consistent with eustachian tube dysfunction likely secondary to frequent flying and seasonal allergies. Prescriptions for Z-Javier, prednisone taper, Bromfed, and Diflucan at patient request. Patient's clinical presentation is otherwise unremarkable at this time. Patient is discharged with instructions to follow-up with primary care or seek emergency medical attention for worsening symptoms or any new concerns. DISPOSITION Diagnosis/Annotation: ED Dx Name:ETD (eustachian tube dysfunction) Code:H69.80 Disposition: discharged Type: home CONSULT CRITICAL CARE TIME Is this a critically ill patient: no Electronic Signatures: Scott Guzman (PAC) (Signed 15-Dec-2021 15:39) Authored: HPI, PMH, ROS, PE, MDM/ED Course, Clinical Impression, Attestation, Chart Review, Scores Last Updated: 15-Dec-2021 15:39 by Scott Guzman (PAC) [facility] No Panel Informationon 09-29 Glucose 2 Hour See comment [facility] Work Phone: Comment on above: FASTING 89 Col: 09/04 11/24 1018 30 min GLU 173 H Col: 09/29/21 1048 60 min GLU 193 H Col: 09/29/21 1118 120min GLU 135 Col: 09/29/21 1218 Serum or plasma insulin deepika urement at 2 hours post 75 gm oral glucose (units/volume)on 09-29-2021 Insulin 2 Hr post 75 g glucose PO Qn See comment [facility] Work Phone: Comment on above: FASTING 21.5 Col: 1018 30 min INS 175.7 Col: 09/29/21 1048 60 min INS 285.5 Col: 09/29/21 1118 120min INS 387.6 Col: 09/29/21 1218 Basophil percentageon 2021 Bilirubin [Mass/Vol] 0.90 mg/dL 0.20-1.00 [facility] Work Phone: Comment on above: For patients on eltr ombopag therapy, use of Dimension [place] TBIL is not recommended. Chloride [Moles/Vol] 102 mmol/L 98-107 [facility] Work Phone: Glucose [Mass/Vol] 87 mg/dL 74-106 [facility] Work Phone: Potassium [Moles/Vol] 3.6 mmol/L 3.5-5.1 [facility] Work Phone: Protein [Mass/Vol] 7.8 g/dL 6.4-8.2 [facility] Work Phone: Sodium [Moles/Vol] 135 mmol/L 136-145 [facility] Work Phone: Testosterone [Mass/Vol] 27.75 ng/dL [facility] Work Phone: Comment on above: CENTRAL 90% REFERENC E RANGES MALE AGE <50 197.44 - 669.58 ng/dL MALE AGE > or = 50 187.72 - 684.19 ng/dL FEMALE AGE <50 8.38 - 35.01 ng/dL FEMALE AGE > or = 50 <7.00 - 35.92 ng/dL Effective as of 11/29/20 WBC (Bld) [#/Vol] 9.2 10*3/uL 4.4-11.0 [facility] Work Phone: Blood erythrocytes count (nu mber/volume)on 09-26-2021 RBC (Bld) [#/Vol] 5.11 10*6/uL 4.2-5.4 [facility] Work Phone: Blood hemoglobin measurement (mass/volume)on 09-26-2021 Hemoglobin (Bld) [Mass/Vol] 14.8 g/dL 12.0-15.0 [facility] Work Phone: Blood platelet mean volumeon 09-26-2021 Platelet mean volume (Bld) [Entitic vol] 10.5 fL 6.2-12.0 [facility] Work Phone: Determination of erythrocyte mean corpuscular volume (MCV)on 09-26-2021 MCV (RBC) [Entitic vol] 87.7 fL 81-99 [facility] Work Phone: Hematocrit Auto (Bld) [Volum e fraction]on 09-26-2021 Hematocrit (Bld) [Volume fraction] 44.8 % 37-47 [facility] Work Phone: Iron measurement (mass/mass) on 09-26-2021 Iron (Unsp spec) [Mass/Mass] 129 ug/dL 50-170 [facility] Work Phone: Laboratory - Chemistry and C hemistry - challengeon 09-26-2021 ALP [Catalytic activity/Vol] 81 U/L 45-117 [facility] Work Phone: ALT [Catalytic activity/Vol] 50 U/L 13-56 [facility] Work Phone: CO2 [Moles/Vol] 26.0 mmol/L 21.0-32.0 [facility] Work Phone: [phone] Cobalamin (Vitamin B12) [Mass/Vol] 337 pg/mL 211-911 [facility] Work Phone: Globulin (S) [Mass/Vol] 3.8 g/dL 2.2-4.2 [facility] Work Phone: Urea nitrogen/Creatinine [Mass ratio] 18.8 mg/mg 10-20 [facility] Work Phone: Laboratory - Hematology and Cell countson 09-26-2021 Erythrocyte distribution width (RBC) [Entitic vol] 39.9 fL 35.1-43.9 [facility] Work Phone: Erythrocyte distribution width (RBC) [Ratio] 12.5 % 11.6-14.6 [facility] Work Phone: MCH (RBC) [Entitic mass] 29.0 pg 27.0-32.0 [facility] Work Phone: HbA1c (Bld) [Mass fraction] 5.20 % 3.8-5.6% [facility] Work Phone: MCHC Auto (RBC) [Mass/Vol]on 09-26-2021 MCHC (RBC) [Mass/Vol] 33.0 g/dL 32-36 [facility] Work Phone: No Panel Informationon 09-26 Estimated GFR (MDRD) Amer 105 mL/min >60 [facility] Work Phone: Comment on above: GFR Calc Estimated GFR (MDRD) Non-Af Amer 87 mL/min >60 [facility] Work Phone: Comment on above: Non- GFR Calc Total Iron Binding Capacity 364 ug/dL 250-450 [facility] Work Phone: Platelets bldon 09-26-2021 Platelets (Bld) [#/Vol] 319 10*3/uL 150-450 [facility] Work Phone: Serum or plasma albumin deepika urement (mass/volume)on 09-26-2021 Albumin [Mass/Vol] 4.0 g/dL 3.2-5.0 [facility] Work Phone: Serum or plasma albumin/glob ulin mass ratioon 09-26-2021 Albumin/Globulin [Mass ratio] 1.1 {ratio} 0.9-2.4 [facility] Work Phone: Serum or plasma calcium deepika urement (mass/volume)on 09-26-2021 Calcium [Mass/Vol] 9.0 mg/dL 8.5-10.1 [facility] Work Phone: Serum or plasma creatinine m easurement (mass/volume)on 09-26-2021 Creatinine [Mass/Vol] 0.75 mg/dL 0.55-1.02 [facility] Work Phone: Comment on above: The validity of the calculated GFR & GFRAA in patients over 70 years has not been determined. Clinical correlation is essential. Serum or plasma estradiol (E 2) measurement (mass/volume)on 09-26-2021 E2 [Mass/Vol] 133.8 pg/mL [facility] Work Phone: Comment on above: NORMAL REFERENCE RAN GES FEMALE FOLLICULAR 21.4 - 164.8 pg/mL MID-CYCLE PEAK 49.9 - 367.2 pg/mL LUTEAL 40.2 - 259.0 pg/mL POST-MENOPAUSAL ON MHT <11.0 - 462.1 pg/mL NOT ON MHT <11.0 - 58.3 pg/mL MALE <11.0 - 52.5 pg/mL NOTE:[employer] HAS CONFIRMED THE DRUG FULVETRANT (FASLODEX) MAY CAUSE FALSELY ELEVATED ESTRADIOL RESULTS WHEN USING THIS TEST METHOD. IF PATIENT IS TAKING FULVESTRANT AN ALTERNATIVE METHOD SHOULD BE USED TO DETERMINE ESTRADIOL CONCENTRATION. Serum or plasma ferritin elizabeth surement (mass/volume)on 09-26-2021 Ferritin [Mass/Vol] 122 ng/mL [facility] Work Phone: Serum or plasma progesterone measurement (mass/volume)on 09-26-2021 Progesterone [Mass/Vol] 4.47 ng/mL See Comment [facility] Work Phone: Comment on above: Progesterone Referen ce Table: UNITS Female: Follicular 0.15 - 1.40 ng/mL Luteal 3.34 - 25.56 ng/mL Mid-luteal 4.44 - 28.03 ng/mL Postmenopausal 0.0 - 0.73 ng/mL : 1st Trimester 11.22 - 90.00 ng/mL 2nd Trimester 25.55 - 89.40 ng/mL 3rd Trimester 48.40 -422.50 ng/mL Serum or plasma sex hormone binding globulin measurement (moles/volume)on 09-26-2021 Sex hormone binding globulin [Moles/Vol] 45.0 nmol/L [facility] Work Phone: Comment on above: Performed at: [address] [id number] Director: Boni Bonilla PhD, Phone: [phone] Serum or plasma urea nitroge n measurement (mass/volume)on 09-26-2021 Urea nitrogen [Mass/Vol] 14 mg/dL 7-18 [facility] Work Phone: Thin prep Papanicolaou smear with manual screeningon 09-26-2021 Thin prep Papanicolaou smear with manual screening 26 U/L 15-37 [facility] Work Phone: Thin prep Papanicolaou smear with manual screening 7 5-15 [facility] Work Phone: Whole blood hemoglobin A1c/t otal hemoglobin ratio (mass fraction)on 09-26-2021 HbA1c (Bld) [Mass fraction] 5.2 % 3.8-5.6 [facility] Work Phone: Comment on above: Normal < 5.7 % Predi abetic 5.7 - 6.4 % Diabetic >or= 6.5 % Please note range changes. T3 REVERSEon 09-04-2021 T3 REVERSE 22.4 ng/dL Normal 9.0-27.0 [facility] Comment on above: Result Comment: INTE RPRETIVE INFORMATION: Triiodothyronine, Reverse - LC-MS/MS This test was developed and its performance characteristics determined by [employer]. It has not been cleared or approved by the [place] Food and Drug Administration. This test was performed in a CLIA certified laboratory and is intended for clinical purposes. Performed By: [facility] [address] [place] [address] Mainframe Developer: Kathy Bradley MD Performed By: #### T 3REV #### [facility] [address] [place] [address] INSULINon 08-31-2021 INSULIN 22 uIU/mL Normal 3 - 25 [facility] Comment on above: Result Comment: Refe rence values apply to fasting specimens. Performed By: #### I NSUL #### [facility] [address] [place] [address] CORTISOL, A.M.on 08-30-2021 CORTISOL, A.M. 9.2 ug/dL Normal 5.0 - 20.0 [facility] Comment on above: Performed By: #### I NSUL #### [facility] [address] [place] [address] DHEA SULFATEon 08-30-2021 DHEA SULFATE 84 ug/dL Normal 30 - 260 [facility] Comment on above: Result Comment: MATU RITY-BASED REFERENCE RANGES: PUBERTAL (SELENE) STAGE MALE FEMALE I 5 - 265 5 - 125 II 15 - 380 15 - 150 III 60 - 505 20 - 535 IV 65 - 560 35 - 485 V 165 - 500 75 - 530 Biotin interference may cause falsely elevated results. Patients taking a Biotin dose of up to 5 mg/day should refrain from taking Biotin for 24 hours before sample collection. Providers may contact their local laboratory for further information. Performed By: #### I NSUL #### [facility] [address] [place] [address] ESTRADIOLon 08-30-2021 ESTRADIOL 141 pg/mL Normal [facility] Comment on above: Result Comment: REF VALUES FOLLICULAR PHASE 20-144 MID CYCLE 64-357 LUTEAL PHASE 56-214 POSTMENOPAUSE < 32 PREPUBERTY < 20 FEMALE 10-18Y 8-110 MALE 10-18Y < 20 ADULT MALE < 40 Performed By: #### T 3REV #### [facility] [address] [place] [address] GLUCOSE,FASTINGon 08-30-2021 Glucose [Mass/Vol] 90 mg/dL Normal 74 - 99 [facility] Comment on above: Result Comment: INCR EASED RISK FOR DIABETES 100-125 mg/dL DIAGNOSTIC OF DIABETES >=126 mg/dL Diagnosis of diabetes mellitus requires confirmation of an abnormal result by repeat testing. [place] [employer], Diabetes Care; 33(Supp 1), May 2009. Performed By: #### I NSUL #### [facility] [address] [place] [address] TESTOSTERONEon 08-30-2021 Testosterone [Mass/Vol] ng/dL Normal 0 - 70 [facility] Comment on above: Result Comment: Nand rolone decanoate, 11 Beta-hydroxytestosterone, androstenedione, testosterone propionate and [id number]-[id number] strongly cross react with this test method. Biotin interference may cause falsely elevated results. Patients taking a Biotin dose of up to 5 mg/day should refrain from taking Biotin for 24 hours before sample collection. Providers may contact their local laboratory for further information. Testing by a more sensitive method (Testosterone Total LC-MS/MS) is recommended for accurate quantification of testosterone levels less than 60 ng/dL. Performed By: #### T EST #### [facility] [address] [place], [place] THYROXINE,FREEon 08-30-2021 THYROXINE,FREE 0.83 ng/dL Normal 0.61 - 1.12 [facility] Comment on above: Result Comment: Thyr oxine Free testing is performed using different testing methodology at [facility] than at other [facility]. Direct result comparisons should only be made within the same method. . Biotin can cause falsely elevated free T4 results. Patients taking a Biotin dose of up to 10 mg/day should refrain from taking Biotin for 24 hours before sample collection. Patient taking a Biotin dose of >10 mg/day should consult with their physician or the laboratory before the blood draw. Performed By: #### I NSUL #### [facility] [address] [place] [address] TRIIODOTHYRONINEon TRIIODOTHYRONINE 147 ng/dL Normal 60 - 200 [facility] Comment on above: Performed By: #### T 3 #### [facility] [address] [place] [address] TRIIODOTHYRONINE,FREEon 08-05 TRIIODOTHYRONINE,FREE 3.6 pg/mL Normal 2.3 - 4.2 [facility] Comment on above: Performed By: #### I NSUL #### [facility] [address] [place] [address] TSHon 08-30-2021 TSH Qn 2.66 m[IU]/L Normal 0.44 - 3.98 [facility] Comment on above: Result Comment: TSH testing is performed using different testing methodology at [facility] than at other [facility]. Direct result comparisons should only be made within the same method. Performed By: #### I NSUL #### [facility] [address] [place] [address] VITAMIN D, 25-HYDROXYon 08-05 VITAMIN D, 25-HYDROXY 13 ng/mL Abnormal [facility] Comment on above: Result Comment: . DEFICIENCY: < 20 NG/ML INSUFFICIENCY: 20-29 NG/ML SUFFICIENCY: 30-100 NG/ML THIS ASSAY ACCURATELY QUANTIFIES THE SUM OF VITAMIN D3, 25-HYDROXY AND VIT D2,25-HYDROXY. Performed By: #### I NSUL #### [facility] [address] [place] [address] Cervical or vagninal specime n microscopic examination by cytology stain (reported ason 07-18-2021 Cytology report Cyto stain Doc (Cvx/Vag) Comment [facility] Work Phone: Comment on above: The Pap smear is a s creening test designed to aid in thedetection of premalignant and malignant conditions of theuterine cervix. It is not a diagnostic procedure andshould not be used as the sole means of detecting cervicalcancer. Both false-positive and false-negative reports dooccur. Detection in cervical specim en of any of human papilloma virus (HPV) 16, 18, 31, 33,on 07-18-2021 HPV 16+18+31+33+35+39+45+51+ 52+56+58+59+66+68 DNA Probe+sig amp Ql (Cvx) Negative Negative [facility] Work Phone: Comment on above: This nucleic acid am plification test detects fourteen high-risk HPV types (16,18,31,33,35,39,45,51,52,56,58,59,66,68)without differentiation.Performed at: [address] [id number] Director: Elaine Gaytan MD, Phone: [phone] at: = - [facility] [place] [id number] Director: Elaine Gaytan MD, Phone: [phone] Laboratory - Cytologyon 07-04 Clinical Rehabilitation Coordinator Cyto stain Nom (Cvx/Vag) [ID] Comment [facility] Work Phone: Comment on above: Bakari Lopez, Cytotec hnologist (ASCP) Laboratory - Miscellaneous t estson 07-18-2021 Service comment (Unsp spec) [Interp] Comment [facility] Work Phone: Comment on above: This liquid based Th inPrep(R) pap test was screened withthe use of an image guided system. Service comment (Unsp spec) [Interp] . [facility] Work Phone: No Panel Informationon 07-18 Follicle Stimulating Hormone 20.0 mIU/mL [facility] Work Phone: Comment on above: NORMAL REFERENCE RAN GES FEMALE FOLLICULAR 2.3 - 12.6 mIU/mL MID-CYCLE PEAK 5.2 - 17.5 mIU/mL LUTEAL 1.7 - 12.9 mIU/mL POST-MENOPAUSAL ON MHT 5.9 - 72.8 mIU/mL NOT ON MHT 12.7 - 132.2 mlU/mL MALE 0.7 - 10.8 mIU/mL Pathology report final diagnosis Narrative Comment [facility] Work Phone: Comment on above: NEGATIVE FOR INTRAEP ITHELIAL LESION OR MALIGNANCY. Office Visit (Primary Care T xt/Forms)on 07-13-2021 Follow-up visit Diagnoses/Problems Assessed Symptoms consistent with irritable bowel syndrome (564.1) (K58.9) Orders PSH: Colonoscopy, Encounter for immunization Temporarily Stop: Influenza, seasonal, injectable Provider Impressions Provider Impressions Free Text Note Form: immodium 2mg 45" AC meals. (no more than 16mg/24H) RTC 1 MO Chief Complaint BM URGENCY WORSENING SOON AFTER MEAL X 6 MO History of Present Illness Sandra comes to office to discuss freq. BM's. + h/o IBS. Notes approx 20" after eating will have some abd pain/cramping AND an immed. urge to defecate. No food triggers or foods that aggravate IBS. Notes always has had sx but they have worsened in the last 6MO. Has approx. 2-3BM's daily. Small in quanity and assoc. w/ a large amt of flatus. No mucus or blood in stool. + cramping prior to BM but none in between. Some daytime fecal incont: if she doesn't get to bathroom in time. Has been intermittent fasting 16H eats from 11A-7P. OTC: none. No noctural diarrhea. Review of Systems Constitutional: no fever and no chills . wt stable. Gastrointestinal: diarrhea, but no abdominal pain, no constipation, no nausea, no blood in stools, no vomiting and as noted in HPI . + fecal urgency. Active Problems Problems Benign hypertension (401.1) (I10) Class 1 obesity due to excess calories without serious comorbidity with body mass index (BMI) of 31.0 to 31.9 in adult (278.00,V85.31) (E66.09,Z68.31) Diabetes (250.00) (E11.9) Encounter for immunization (V03.89) (Z23) Heart palpitations (785.1) (R00.2) History of vitamin D deficiency (V12.1) (Z86.39) Mild intermittent asthma without complication (493.90) (J45.20) Obesity (278.00) (E66.9) Screening for colon cancer (V76.51) (Z12.11) Surgical History Problems History of Breast reduction History of section History of Cholecystectomy History of Colonoscopy Family History Mother Family history of asthma (V17.5) (Z82.5) Family history of cerebrovascular accident (CVA) (V17.1) (Z82.3) Family history of coronary artery disease (V17.3) (Z82.49) Family history of diabetes mellitus (V18.0) (Z83.3) Family history of hypertension (V17.49) (Z82.49) Family history of malignant neoplasm (V16.9) (Z80.9) Father Family history of myocardial infarction (V17.3) (Z82.49) Family history of Primary malignant neoplasm of lung Social History Problems Denies alcohol consumption (V49.89) (Z78.9) Former smoker (V15.82) (Z87.891) No advance directives (V49.89) (Z78.9) Current Meds Medication NameInstruction hydroCHLOROthiazide 12.5 MG Oral TabletTAKE 1 TABLET DAILY. Losartan Potassium 50 MG Oral TabletTAKE 1 TABLET DAILY. Metoprolol Succinate ER 25 MG Oral Tablet Extended Release 24 HourTAKE 1 TABLET DAILY. Montelukast Sodium 10 MG Oral TabletTAKE 1 TABLET DAILY. Allergies Medication codeine Penicillins Vitals Vital Signs Recorded: 13Jul2021 10:00AM Heart Rate: 60 Systolic: 108 Diastolic: 64 Height: 5 ft 7 in Weight: 203 lb 2 oz BMI Calculated: 31.81 kg/m2 BSA Calculated: 2.04 Tobacco Use: b) No PHQ-2 #1. Over the last 2 weeks have you felt down, depressed or hopeless? (If yes, answer PHQ-9 below): No PHQ-2 #2. Over the last 2 weeks have you felt little interest or pleasure in doing things? (If yes, answer PHQ-9 below): No Fall Screening: a) No falls within the last year O2 Saturation: 97 Physical Exam General: Alert and oriented. Ambulation status: With steady gait. Behavior: Appropriate. Neck: Supple, Non-tender, No carotid bruit, No lymphadenopathy, No thyromegaly. Respiratory: Lungs are clear to auscultation, Breath sounds are equal, Symmetrical chest wall expansion. Respirations: Are within normal limits. Pattern: Regular. Cardiovascular: Regular rhythm, S1, S2, No murmur, Good pulses equal in all extremities. No peripheral edema, steve. Gastrointestinal: Soft, Non-tender, obese, Normal bowel sounds, No organomegaly. Integumentary: Warm, Dry, [place], Intact, No rash. Neurologic: Alert, Oriented. Signatures Electronically signed by : ARELI Garcia; Jul 13 2021 10:40AM EST (Author) Normal [employer] Tobacco Screening.on 022 Adult depression screening assessment No [employer] [facility] Work Phone: Fall risk assessment a) No falls within the last year [facility] Work Phone: Tobacco use status CPHS b) No [facility] Work Phone: Hemoglobin A1Con 12-29-2020 Glucose [Mass/Vol] 100 mg/dL [facility] Work Phone: HbA1c (Bld) [Mass fraction] 5.1 % [facility] Work Phone: Comment on above: Diagnosis of Diabete s-Adults Non-Diabetic: < or = 5.6% Increased risk for developing diabetes: 5.7-6.4% Diagnostic of diabetes: > or = 6.5%. Monitoring of Diabetes Age (y) Therapeutic Goal (%) Adults: >18 <7.0 Pediatrics: 13-18 <7.5 7-12 <8.0 0- 6 7.5-8.5 [place] [employer]. Diabetes Care 33(S1), May 2009. Laboratory - Chemistry and C hemistry - challengeon 12-29-2020 Albumin BCP dye [Mass/Vol] 4.0 g/dL 3.4 - 5.0 -[facility] [employer] [facility] Work Phone: ALP [Catalytic activity/Vol] 64 U/L 33 - 110 [facility] Work Phone: ALT With P-5'-P [Catalytic activity/Vol] 23 U/L 7 - 45 [employer] terrance [employer] [facility] Work Phone: Comment on above: Patients treated wit h Sulfasalazine may generate falsely decreased results for ALT. Anion gap [Moles/Vol] 11 mmol/L 10 - 20 - [facility] Work Phone: AST With P-5'-P [Catalytic activity/Vol] 18 U/L 9 - 39 [facility] terrance [employer] [facility] Work Phone: Bilirubin [Mass/Vol] 0.5 mg/dL 0.0 - 1.2 [facility] edical [employer] [facility] Work Phone: Calcium [Mass/Vol] 8.6 mg/dL 8.6 - 10.3 [facility] Work Phone: Chloride [Moles/Vol] 105 mmol/L 98 - 107 - edical [facility] Work Phone: CO2 [Moles/Vol] 27 mmol/L 21 - 32 [facility] l [facility] Work Phone: Creatinine [Mass/Vol] 0.68 mg/dL See Below - [facility] Work Phone: Comment on above: Reference Range: 0.5 0 - 1.05 Glucose [Mass/Vol] 99 mg/dL 74 - 99 -[facility] Work Phone: Potassium [Moles/Vol] 3.7 mmol/L 3.5 - 5.3 - [facility] Work Phone: Protein [Mass/Vol] 6.4 g/dL 6.4 - 8.2 -[facility] Work Phone: Sodium [Moles/Vol] 139 mmol/L 136 - 145 -[facility] Work Phone: Urea nitrogen [Mass/Vol] 10 mg/dL 6 - 23 [facility] Work Phone: Laboratory - Hematology and Cell countson 12-29-2020 Erythrocyte distribution width (RBC) [Ratio] 13.3 % See Below [facility] Work Phone: Comment on above: Reference Range: 11. 5 - 14.5 Hematocrit (Bld) [Volume fraction] 41.7 % See Below [facility] Work Phone: Comment on above: Reference Range: 36. 0 - 46.0 Hemoglobin (Bld) [Mass/Vol] 13.6 g/dL See Below [facility] Work Phone: Comment on above: Reference Range: 12. 0 - 16.0 MCHC (RBC) [Mass/Vol] 32.7 g/dL See Below [facility] Work Phone: Comment on above: Reference Range: 32. 0 - 36.0 MCV (RBC) [Entitic vol] 89 fL 80 - 100 M [facility] Work Phone: Platelets (Bld) [#/Vol] 259 10*3/uL 150 - 450 [facility] Work Phone: RBC (Bld) [#/Vol] 4.72 {x10E12/L} See Below [facility] [employer] [facility] Work Phone: Comment on above: Reference Range: 4.0 0 - 5.20 WBC (Bld) [#/Vol] 6.4 10*3/uL 4.4 - 11.3 [facility] Work Phone: Lipid Panelon 12-29-2020 Cholesterol [Mass/Vol] 146 mg/dL 0 - 199 [facility] Work Phone: Comment on above: . AGE DESIRABLE BORD LUISA HIGH HIGH 0-19 Y 0 - 169 170 - 199 >/= 200 20-24 Y 0 - 189 190 - 224 >/= 225 >24 Y 0 - 199 200 - 239 >/= 240 All ranges are based on fasting samples. Specific therapeutic targets will vary based on patient-specific cardiac risk.. Pediatric guidelines reference:Pediatrics 2011, 128(S5). Adult guidelines reference: NCEP ATPIII Guidelines, TRENT 2001, 258:2486-97. Venipuncture immediately after or during the administration of Metamizole may lead to falsely low results. Testing should be performed immediately prior to Metamizole dosing. Cholesterol in HDL [Mass/Vol] 45.0 mg/dL [facility] Work Phone: Comment on above: . AGE VERY LOW LOW N ORMAL HIGH 0-19 Y < 35 < 40 40-45 ---- 20-24 Y ---- < 40 >45 ---- >24 Y ---- < 40 40-60 >60. Cholesterol in LDL [Mass/Vol] 88 mg/dL 0 - 99 [facility] Work Phone: Comment on above: . NEAR BORD AGE PAULO RABLE OPTIMAL HIGH HIGH VERY HIGH 0-19 Y 0 - 109 --- 110-129 >/= 130 ---- 20-24 Y 0 - 119 --- 120-159 >/= 160 ---- >24 Y 0 - 99 100-129 130-159 160-189 >/=190. Cholesterol.total/Choles terol in HDL [Mass ratio] 3.2 {ratio} [facility] Work Phone: Comment on above: REF VALUESDESIRABLE < 3.4HIGH RISK > 5.0 Triglyceride [Mass/Vol] 63 mg/dL 0 - 149 M [facility] Work Phone: Comment on above: . AGE DESIRABLE BORD LUISA HIGH HIGH VERY HIGH 0 D-90 D 19 - 174 ---- ---- ----91 D- 9 Y 0 - 74 75 - 99 >/= 100 ---- 10-19 Y 0 - 89 90 - 129 >/= 130 ---- 20-24 Y 0 - 114 115 - 149 >/= 150 ---- >24 Y 0 - 149 150 - 199 200- 499 >/= 500. Venipuncture immediately after or during the administration of Metamizole may lead to falsely low results. Testing should be performed immediately prior to Metamizole dosing. Lipid Panel 13 mg/dL 0 - 40 [facility] Work Phone: No Panel Informationon 12-29 >60 >60 [facility] Work Phone: Comment on above: CALCULATIONS OF CLARENCE MATED GFR ARE PERFORMED USING THE MDRD STUDY EQUATION FOR THE IDMS-TRACEABLE CREATININE METHODS. CLIN CHEM 2007;53:766-72 TSH - Thyroid Stimulating Ho leta, Serumon 12-29-2020 TSH Qn 2.19 m[IU]/L See Below [facility] Work Phone: Comment on above: Reference Range: 0.4 4 - 3.98 TSH testing is performed using different testing methodology at [facility] than at [facility]. Direct result comparisons should only be made within the same method. Tobacco Screening.on 021 Fall risk assessment a) No falls within the last year [facility] Work Phone: Tobacco use status CPHS b) No M [facility] Work Phone: SURGon 05-12-2018 SURG Name: SANDRA ABDI Skin, Left lower lid Clinical History D48.5 Diagnosis Epidermal inclusion cyst. HW Gross Description The specimen received in formalin is a fragment of stout soft tissue which measures 4 x 3 x 2 mm. Entirely submitted in one cassette. HW/arj (CARTER/archago) Electronically Signed By Aj Hoang MD , Pathologist (Case signed 05/14/2018) Normal [facility] Albumin mass conc 4.0 g/dL Normal 3.2-5.0 [facility] Comment on above: Performed By: #### 2 [id number] ####ROXANN [id number] [place] [address] Albumin/Globulin mass ratio 1.3 {ratio} Normal 1.1-1.9 [facility] Comment on above: Performed By: #### 2 [id number] ####ROXANN [id number] [place] [address] Alk Phos 61 Int._Unit/L Normal 42-121 [facility] Comment on above: Performed By: #### 2 [id number] ####ROXANN [id number] [place] [address] ALT enzyme act/vol 28 Int._Unit/L Normal 10-40 [facility] Comment on above: Performed By: #### 2 [id number] ####ROXANN [id number] [place] [address] AST enzyme act/vol 17 Int._Unit/L Normal 10-42 [facility] Comment on above: Performed By: #### 2 [id number] ####ROXANN [id number] [place] [address] Bili Total 0.7 mg/dL Normal 0.2-1.0 [facility] Comment on above: Performed By: #### 2 [id number] ####ROXANN [address] [place] [address] Calcium mass conc 8.9 mg/dL Normal 8.4-10.2 [facility] Comment on above: Performed By: #### 2 [id number] ####ROXANN [address] [place] [address] Chloride molar conc 102 mmol/L Normal 98-107 [facility] Comment on above: Performed By: #### 2 [id number] ####ROXANN [address] [place] [address] CO2 molar conc 29.1 mmol/L Normal 24.0-30.0 [facility] Comment on above: Performed By: #### 2 [id number] ####ROXANN [address] [place] [address] Creatinine mass conc 0.6 mg/dL Normal 0.6-1.3 [facility] Comment on above: Performed By: #### 2 [id number] ####ROXANN [address] [place] [address] Globulin Calculated mass conc (S) 3.1 g/dL Normal 2.0-4.0 [facility] Comment on above: Performed By: #### 2 [id number] ####ROXANN [address] [place] [address] Glucose mass conc 107 mg/dL High 70-99 [facility] Comment on above: Performed By: #### 2 [id number] ####ROXANN [address] [place] [address] Potassium molar conc 3.6 mmol/L Normal 3.5-5.1 [facility] Comment on above: Performed By: #### 2 [id number] ####ROXANN [address] [place] [address] Protein mass conc 7.1 g/dL Normal 6.4-8.3 [facility] Comment on above: Performed By: #### 2 [id number] ####ROXANN [address] [place] [address] Sodium molar conc 140 mmol/L Normal 136-145 [facility] Comment on above: Performed By: #### 2 [id number] ####ROXANN [address] [place] [address] Urea nitrogen mass conc 15 mg/dL Normal 7-18 [facility] Comment on above: Performed By: #### 2 940100 ####ROXANN [address] [place] [address] Urea nitrogen/Creatinine mass ratio 25.0 ratio Normal 5.4-30.0 [facility] Comment on above: Performed By: #### 2 [id number] ####ROXANN [address] [place] [address] Vitamin D 25 Hydroxyon 12-11 Vitamin D 25 Hydroxy 34.0 ng/mL Normal 30.0-100.0 [facility] Comment on above: Performed By: #### 2 [id number] ####ROXANN [address] [place] [address] eGFRon 12-11-2017 eGFR AA >60 Normal [facility] Comment on above: Order Comment: Order Added by Discern Expert. Performed By: #### 2 [id number] ####ROXANN [address] [place] [address] GFR/1.73 sq M predicted among non-blacks MDRD vol rate/area (S/P/Bld) mL/min/{1.73_m2} Normal [facility] Comment on above: Order Comment: Order Added by Discern Expert. Performed By: #### 2 [id number] ####ROXANN [id number] [place] [address] XR Chest 2 Viewson 8 XR Chest 2 Views Exam Date/Time:11/04/2017 09:28 EDTReason for Exam:CoughReportSTUDY :XR Chest 2 Views; 11/04/2017 9:28 amINDICATION:Cough.CO MPARISON:None.ACCESSI ON NUMBER(S):[id number] CLINICIAN:Ravin Bella:PA and lateral views of the chest were obtained. No focal infiltrate, pleural effusion or pneumothorax is identified. The cardiac silhouette is within normal limits for size. Minimal discogenic degenerative changes are seen throughout the thoracic spine.IMPRESSION:No focal infiltrate or pneumothorax. FINAL REPORT Dictated: 11/04/2017 10:35 am Manuel Wheeler MD CSigned (Electronic Signature): 11/04/2017 10:35 amSigned by: Manuel Wheeler MD Technologist: R [facility] CT CALCIUM SCORE SCREENINGon 06-18-2017 CT CALCIUM SCORE SCREENING Total Agatston calcium score of zero (0) implies a very low likelihood of a cardiac event over at least the next 3 years. No incidental clinically important extracardiac CT findings. Calcium Score Interpretation 0 No identifiable atherosclerotic plaque. Very low cardiovascular disease risk. Less than 5% chance of presence of coronary artery disease. A negative examination. 1-10 Minimal plaque burden. Significant coronary artery disease very unlikely. 11-100 Mild plaque burden. Likely mild or minimal coronary stenosis. 101-400 Moderate plaque burden. Moderate non-obstructive coronary artery disease highly likely. Over 400 Extensive plaque burden. High likelihood of at least one significant coronary artery stenosis (>50% diameter). CALCIUM SCORING OVERVIEW: Coronary calcium is a marker for plaque in a blood vessel or atherosclerosis (hardening of the arteries). The presence and amount of calcium detected in the coronary artery by the CT scan estimates the presence and amount of atherosclerotic plaque. These calcium deposits can appear years before the development of heart disease symptoms such as chest pain and shortness of breath. A calcium score is computed for each of the coronary arteries based upon the volume and density of the calcium deposits. This can be referred to as your calcified plaque burden. It does not correspond directly to the percentage of narrowing in the artery, but does correlate with the severity of the overall coronary atherosclerotic burden. This score is then used to determine the calcium percentile which compares your calcified plaque burden to that of other asymptomatic men and women of the same age. The calcium score, in combination with the percentile, enables your physician to determine your risk of developing symptomatic coronary artery disease, and to measure the progression of disease as well as the effectiveness of treatment. A score of zero indicates that there is no calcified plaque burden. This implies that there is no significant coronary artery narrowing and very low likelihood of a cardiac event over at least the next 3 years. It does not absolutely rule out the presence of soft, noncalcified plaque or totally eliminate the possibility of a cardiac event. A score greater than zero indicates at least some coronary artery disease. As the score increases, so does the likelihood of a significant coronary narrowing and the likelihood of a coronary event over the next 3 years. Similarly, the likelihood of a coronary event increases with increasing calcium percentiles. Workstation ID: [id number] Invalid Interpretation Code Epiclist [facility] CT CALCIUM SCORE SCREENING EXAMINATION: CT OF THE HEART WITHOUT CONTRAST, CORONARY ARTERY CALCIUM SCREENING 06/18/2017 HISTORY: ORDERING SYSTEM PROVIDED HISTORY: SOBOE (shortness of breath on exertion); TECHNOLOGIST PROVIDED HISTORY: Reason for Exam: sob, chest pain, high blood pressure and family hx Illness/Other Acuity: Acute Type of Encounter: Initial Additional signs and symptoms: sob, chest pain, high blood pressure and family hx ORDERING SYSTEM PROVIDED DIAGNOSIS CODES: R06.02 SOBOE (shortness of breath on exertion) COMPARISON: None TECHNIQUE: CT of the heart was obtained without intravenous contrast. Calcium scoring analysis was performed using a separate Vir[employer]ize workstation. Dose modulation, iterative reconstruction, and/or weight based adjustment of the mA/kV was utilized to reduce the radiation dose to as low as reasonably achievable. FINDINGS: LEFT MAIN: Zero (0). RIGHT CORONARY ARTERY: Zero (0). LEFT ANTERIOR DESCENDING: Zero (0). CIRCUMFLEX: Zero (0). TOTAL AGATSTON CALCIUM SCORE: Zero (0). EXTRACARDIAC STRUCTURES: No evidence of mediastinal or hilar lymphadenopathy. No pericardial effusion. No cardiomegaly. No evidence of acute process in the lungs. No noncalcified nodules are noted in the lungs. Limited images of the upper abdomen are grossly unremarkable. Visualized osseous structures demonstrate age related degenerative changes without acute abnormality. Invalid Interpretation Code Epiclist [facility] CT CALCIUM SCORE SCREENING Interface, [facility] - 06/18/2017 9:19 AM EST EXAMINATION: CT OF THE HEART WITHOUT CONTRAST, CORONARY ARTERY CALCIUM SCREENING 06/18/2017 HISTORY: ORDERING SYSTEM PROVIDED HISTORY: SOBOE (shortness of breath on exertion); TECHNOLOGIST PROVIDED HISTORY: Reason for Exam: sob, chest pain, high blood pressure and family hx Illness/Other Acuity: Acute Type of Encounter: Initial Additional signs and symptoms: sob, chest pain, high blood pressure and family hx ORDERING SYSTEM PROVIDED DIAGNOSIS CODES: R06.02 SOBOE (shortness of breath on exertion) COMPARISON: None TECHNIQUE: CT of the heart was obtained without intravenous contrast. Calcium scoring analysis was performed using a separate [employer] workstation. Dose modulation, iterative reconstruction, and/or weight based adjustment of the mA/kV was utilized to reduce the radiation dose to as low as reasonably achievable. FINDINGS: LEFT MAIN: Zero (0). RIGHT CORONARY ARTERY: Zero (0). LEFT ANTERIOR DESCENDING: Zero (0). CIRCUMFLEX: Zero (0). TOTAL AGATSTON CALCIUM SCORE: Zero (0). EXTRACARDIAC STRUCTURES: No evidence of mediastinal or hilar lymphadenopathy. No pericardial effusion. No cardiomegaly. No evidence of acute process in the lungs. No noncalcified nodules are noted in the lungs. Limited images of the upper abdomen are grossly unremarkable. Visualized osseous structures demonstrate age related degenerative changes without acute abnormality. IMPRESSION: Total Agatston calcium score of zero (0) implies a very low likelihood of a cardiac event over at least the next 3 years. No incidental clinically important extracardiac CT findings. Calcium Score Interpretation 0 No identifiable atherosclerotic plaque. Very low cardiovascular disease risk. Less than 5% chance of presence of coronary artery disease. A negative examination. 1-10 Minimal plaque burden. Significant coronary artery disease very unlikely. 11-100 Mild plaque burden. Likely mild or minimal coronary stenosis. 101-400 Moderate plaque burden. Moderate non-obstructive coronary artery disease highly likely. Over 400 Extensive plaque burden. High likelihood of at least one significant coronary artery stenosis (>50% diameter). CALCIUM SCORING OVERVIEW: Coronary calcium is a marker for plaque in a blood vessel or atherosclerosis (hardening of the arteries). The presence and amount of calcium detected in the coronary artery by the CT scan estimates the presence and amount of atherosclerotic plaque. These calcium deposits can appear years before the development of heart disease symptoms such as chest pain and shortness of breath. A calcium score is computed for each of the coronary arteries based upon the volume and density of the calcium deposits. This can be referred to as your calcified plaque burden. It does not correspond directly to the percentage of narrowing in the artery, but does correlate with the severity of the overall coronary atherosclerotic burden. This score is then used to determine the calcium percentile which compares your calcified plaque burden to that of other asymptomatic men and women of the same age. The calcium score, in combination with the percentile, enables your physician to determine your risk of developing symptomatic coronary artery disease, and to measure the progression of disease as well as the effectiveness of treatment. A score of zero indicates that there is no calcified plaque burden. This implies that there is no significant coronary artery narrowing and very low likelihood of a cardiac event over at least the next 3 years. It does not absolutely rule out the presence of soft, noncalcified plaque or totally eliminate the possibility of a cardiac event. A score greater than zero indicates at least some coronary artery disease. As the score increases, so does the likelihood of a significant coronary narrowing and the likelihood of a coronary event over the next 3 years. Similarly, the likelihood of a coronary event increases with increasing calcium percentiles. Workstation ID: [id number] Invalid Interpretation Code [employer] [facility] Calcium EXAMINATION: CT OF THE HEART WITHOUT CONTRAST, CORONARY ARTERY CALCIUM SCREENING06/18/2017HIS TORY:ORDERING SYSTEM PROVIDED HISTORY: SOBOE (shortness of breath on exertion); TECHNOLOGIST PROVIDED HISTORY: Reason for Exam: sob, chest pain, high blood pressure and family hx Illness/Other Acuity: Acute Type of Encounter: Initial Additional signs and symptoms: sob, chest pain, high blood pressure and family hx ORDERING SYSTEM PROVIDED DIAGNOSIS CODES: R06.02 SOBOE (shortness of breath on exertion)COMPARISON:N oneTECHNIQUE:CT of the heart was obtained without intravenous contrast. Calcium scoring analysis was performed using a separate [employer]ize workstation. Dose modulation, iterative reconstruction, and/or weight based adjustment of the mA/kV was utilized to reduce the radiation dose to as low as reasonably achievable.FINDINGS:L EFT MAIN: Zero (0).RIGHT CORONARY ARTERY: Zero (0).LEFT ANTERIOR DESCENDING: Zero (0).CIRCUMFLEX: Zero (0).TOTAL AGATSTON CALCIUM SCORE: Zero (0).EXTRACARDIAC STRUCTURES: No evidence of mediastinal or hilar lymphadenopathy. No pericardial effusion. No cardiomegaly. No evidence of acute process in the lungs. No noncalcified nodules are noted in the lungs. Limited images of the upper abdomen are grossly unremarkable. Visualized osseous structures demonstrate age related degenerative changes without acute abnormality.IMPRESSIO N:Total Agatston calcium score of zero (0) implies a very low likelihood of a cardiac event over at least the next 3 years.No incidental clinically important extracardiac CT findings.Calcium Score Interpretation0 No identifiable atherosclerotic plaque. Very low cardiovascular disease risk. Less than 5% chance of presence of coronary artery disease. A negative examination.1-10 Minimal plaque burden. Significant coronary artery disease very unlikely.11-100 Mild plaque burden. Likely mild or minimal coronary stenosis.101-400 Moderate plaque burden. Moderate non-obstructive coronary artery disease highly likely.Over 400 Extensive plaque burden. High likelihood of at least one significant coronary artery stenosis (>50% diameter).CALCIUM SCORING OVERVIEW:Coronary calcium is a marker for plaque in a blood vessel or atherosclerosis (hardening of the arteries). The presence and amount of calcium detected in the coronary artery by the CT scan estimates the presence and amount of atherosclerotic plaque. These calcium deposits can appear years before the development of heart disease symptoms such as chest pain and shortness of breath.A calcium score is computed for each of the coronary arteries based upon the volume and density of the calcium deposits. This can be referred to as your calcified plaque burden. It does not correspond directly to the percentage of narrowing in the artery, but does correlate with the severity of the overall coronary atherosclerotic burden.This score is then used to determine the calcium percentile which compares your calcified plaque burden to that of other asymptomatic men and women of the same age. The calcium score, in combination with the percentile, enables your physician to determine your risk of developing symptomatic coronary artery disease, and to measure the progression of disease as well as the effectiveness of treatment.A score of zero indicates that there is no calcified plaque burden. This implies that there is no significant coronary artery narrowing and very low likelihood of a cardiac event over at least the next 3 years. It does not absolutely rule out the presence of soft, noncalcified plaque or totally eliminate the possibility of a cardiac event.A score greater than zero indicates at least some coronary artery disease. As the score increases, so does the likelihood of a significant coronary narrowing and the likelihood of a coronary event over the next 3 years. Similarly, the likelihood of a coronary event increases with increasing calcium percentiles.Workstati on ID: [id number] by: CIRO DAVID on SatJun 18, 2017 9:17:29 AM ESTTranscribed by: CIRO DAVID on SatJun 18, 2017 9:17:29 AM ESTFinalized by: CIRO DAVID on SatJun 18, 2017 9:17:29 AM EST Normal [facility] Comment on above: Order Comment: Reaso n for exam?:sob, chest pain, high blood pressure and family hxInjury/Trauma or Illness?:Illness/OtherHow long have you had these symptoms (acute/chronic)?:AcuteType of Exam?:InitialAdditional signs and symptoms?:sob, chest pain, high blood pressure and family hx [id number] 05-21-2017 Hemoglobin A1c/Hemoglobin.total mass fraction (Bld) 5.0 % Normal 4.0-6.3 [facility] Comment on above: Performed By: #### 3 [id number] ####ROXANN Chemistry Manual [id number] [place] [address] Auto Diffon 05-20-2017 Basophils Auto #/vol (Bld) 0.1 E3/mcL Normal 0.0-0.2 [facility] Comment on above: Order Comment: Order Added by Discern Expert. Performed By: #### 2 [id number] ####ROXANN [address]vo[address] [place] [address] Basophils/100 WBC Auto (Bld) 1.0 % Normal 0.0-2.0 [facility] Comment on above: Order Comment: Order Added by Discern Expert. Performed By: #### 2 [id number] ####ROXANN [address] [place] [address] Eos Absolute 0.3 E3/mcL Normal 0.0-0.7 [facility] Comment on above: Order Comment: Order Added by Discern Expert. Performed By: #### 2 [id number] ####ROXANN V[address]Wwsr5[address] [place] [address] Eosinophils/100 WBC Auto (Bld) 3.3 % Normal 0.0-11.0 [facility] Comment on above: Order Comment: Order Added by Discern Expert. Performed By: #### 2 [id number] ####ROXANN [address]ekf[address] [place] [address] Lymphocytes Auto #/vol (Bld) 2.2 E3/mcL Normal 1.2-3.4 [facility] Comment on above: Order Comment: Order Added by Discern Expert. Performed By: #### 2 [id number] ####ROXANN [address]Wgxg[address] [place] [address] Lymphocytes/100 WBC Auto (Bld) 24.3 % Normal 20.0-55.0 [facility] Comment on above: Order Comment: Order Added by Discern Expert. Performed By: #### 2 [id number] ####ROXANN [address] [place] [address] [place] Absolute 0.5 E3/mcL Normal 0.0-0.7 [facility] Comment on above: Order Comment: Order Added by Discern Expert. Performed By: #### 2 [id number] ####ROXANN [address] [place] [address] Monocytes/100 WBC Auto (Bld) 6.0 % Normal 0.0-10.0 [facility] Comment on above: Order Comment: Order Added by Discern Expert. Performed By: #### 2 [id number] ####ROXANN [address] [place] [address] Neutro Absolute 5.8 E3/mcL Normal 1.4-6.5 [facility] Comment on above: Order Comment: Order Added by Discern Expert. Performed By: #### 2 [id number] ####ROXANN [address] [place] [address] Neutro Auto 65.4 % Normal 37.0-75.0 [facility] Comment on above: Order Comment: Order Added by Discern Expert. Performed By: #### 2 [id number] ####ROXANN [address] [place] [address] CBC w/ Auto Diffon 8 Erythrocyte distribution width Auto Ratio (RBC) 13.0 % Normal 11.5-14.5 [facility] Comment on above: Performed By: #### 2 [id number] ####ROXANN [address] [place] [address] Hematocrit Auto Volume Fraction (Bld) 44.8 % Normal 36.0-48.0 [facility] Comment on above: Performed By: #### 2 [id number] ####ROXANN [address] [place] [address] Hemoglobin mass conc (Bld) 15.2 g/dL Normal 12.0-16.0 [facility] Comment on above: Performed By: #### 2 [id number] ####ROXANN [address] [place] [id number] MCH Auto Entitic mass (RBC) 28.8 pg Normal 27.0-31.0 [facility] Comment on above: Performed By: #### 2 [id number] ####ROXANN [address] [place] [address] MCHC Auto mass conc (RBC) 33.9 g/dL Normal 33.0-37.0 [facility] Comment on above: Performed By: #### 2 570020 ####ROXANN [address]ix[address] [place] [address] MCV Auto Entitic volume (RBC) 85.0 fL Normal 78.0-100.0 [facility] Comment on above: Performed By: #### 2 [id number] ####ROXANN [address]qHwyo[address] [place] [address] Platelet mean volume Auto Entitic volume (Bld) 8.9 fL Normal 7.4-11.0 [facility] Comment on above: Performed By: #### 2 [id number] ####ROXANN [address] [place] [address] Platelets Auto #/vol (Bld) 318 E3/mcL Normal 130-400 [facility] Comment on above: Performed By: #### 2 [id number] ####ROXANN [address] [place] [address] RBC Auto #/vol (Bld) 5.27 E6/mcL Normal 3.90-5.40 [facility] Comment on above: Performed By: #### 2 [id number] ####ROXANN [address]pu[address] [place] [address] WBC Auto #/vol (Bld) 8.9 E3/mcL Normal 3.6-11.0 [facility] Comment on above: Performed By: #### 2 [id number] ####ROXANN [address] [place] [address] CMPon 05-20-2017 Albumin mass conc 4.2 g/dL Normal 3.2-5.0 [facility] Comment on above: Performed By: #### 2 [id number] ####ROXANNGiovani [address]ikh[address] [place] [address] Albumin/Globulin mass ratio 1.3 {ratio} Normal 1.1-1.9 [facility] Comment on above: Performed By: #### 2 [id number] ####ROXANN [address] [place] [address] Alk Phos 64 Int._Unit/L Normal 42-121 [facility] Comment on above: Performed By: #### 2 [id number] ####ROXANN [address] [place] [address] ALT enzyme act/vol 20 Int._Unit/L Normal 10-40 [facility] Comment on above: Performed By: #### 2 [id number] ####ORXANN [address] [place] [address] AST enzyme act/vol 18 Int._Unit/L Normal 10-42 [facility] Comment on above: Performed By: #### 2 [id number] ####ROXANN [address] [place] [address] Bili Total 0.5 mg/dL Normal 0.2-1.0 [facility] Comment on above: Performed By: #### 2 [id number] ####ROXANN Q[address]Yfbf[address] [place] [address] Creatinine mass conc 0.7 mg/dL Normal 0.6-1.3 [facility] Comment on above: Performed By: #### 2 693595 ####ROXANN [address]Zfg[address] [place] [address] Globulin Calculated mass conc (S) 3.2 g/dL Normal 2.0-4.0 [facility] Comment on above: Performed By: #### 2 [id number] ####ROXANN [address] [place] [address] Protein mass conc 7.4 g/dL Normal 6.4-8.3 [facility] Comment on above: Performed By: #### 2 [id number] ####ROXANN [address]fr[address]vs[address] [place] [address] Urea nitrogen mass conc 14 mg/dL Normal 7-18 [facility] Comment on above: Performed By: #### 2 [id number] ####ROXANN [address] [place] [address] Urea nitrogen/Creatinine mass ratio 20.0 ratio Normal 5.4-30.0 [facility] Comment on above: Performed By: #### 2 725392 ####ROXANN [address] [place] [address] Calcium mass conc 9.2 mg/dL Normal 8.4-10.2 [facility] Comment on above: Performed By: #### 2 726386 ####ROXANN [address] [place] [address] Chloride molar conc 98 mmol/L Normal 98-107 [facility] Comment on above: Performed By: #### 2 [id number] ####ROXANN [address]Tm[address] [place] [address] CO2 molar conc 25.0 mmol/L Normal 24.0-30.0 [facility] Comment on above: Performed By: #### 2 694045 ####ROXANN [address] [place] [address] Glucose mass conc 98 mg/dL Normal 70-99 [facility] Comment on above: Performed By: #### 2 092564 ####ROXANN XqpFsah[address]38 [place] [address] Potassium molar conc 3.9 mmol/L Normal 3.5-5.1 [facility] Comment on above: Performed By: #### 2 558984 ####ROXANN [address]Qmmn[address] [place] [address] Sodium molar conc 135 mmol/L Low 136-145 [facility] Comment on above: Performed By: #### 2 [id number] ####ROXANN [address] [place] [address] Lipid Profileon 05-20-2017 Cholesterol in HDL mass conc 50 mg/dL Normal >=41 [facility] Comment on above: Performed By: #### 3 [id number] ####ROXANN [address]jsg[address] [place] [address] Cholesterol in LDL mass conc 88 mg/dL Normal 0-130 [facility] Comment on above: Result Comment: <100 [id number] NEAR / ABOVE [id number] BORDERLINE [id number] HIGH>190 VERY HIGHCALC LDL NOT VALID WHEN TRIGLYCERIDE IS >400 MG/DL Performed By: #### 3 [id number] ####ROXANN [address]Uljh[address] [place] [address] Cholesterol in VLDL mass conc 16 mg/dL Normal [facility] Comment on above: Performed By: #### 3 [id number] ####ROXANN [address] [place] [address] Cholesterol mass conc 154 mg/dL Normal 50-200 [facility] Comment on above: Result Comment: TOTA L CHOLEESTEROL: <200 NORMAL 200 - 239 BORDERLINE HIGH >240 HIGH Performed By: #### 3 [id number] ####ROXANN [address] [place] [address] Triglyceride mass conc 82 mg/dL Normal 35-150 [facility] Comment on above: Result Comment: <150 [id number] BORDERLINE [id number] HIGH>500 VERY HIGH Performed By: #### 3 [id number] ####ROXANN [address] [place] [address] Microalb/Creat Ratioon 05-20 Creatinine mass conc 10 ug/mg Normal 0-30 [facility] Comment on above: Performed By: #### 1 [id number] ####ROXANN MluGndr[address] [place] [address] Ur Creat 203.0 mg/dL Normal 20.0-300.0 [facility] Comment on above: Performed By: #### 1 [id number] ####ROXANN [address]bla[address] [place] [address] Ur Microalbumin 2.0 mg/dL High 0.0-1.9 [facility] Comment on above: Performed By: #### 1 [id number] ####ROXANN [address]Ttnr[address] [place] [address] TSHon 05-20-2017 Thyrotropin Qn 1.81 mIU/m Normal 0.30-5.60 [facility] Comment on above: Performed By: #### 2 [id number] ####ROXANN [address]oyv[address] [place] [address] Vitamin D 25 Hydroxyon 05-20 Vitamin D 25 Hydroxy 18.3 ng/mL Low 30.0-100.0 [facility] Comment on above: Performed By: #### 5 [id number] ####ROXANN [address]mb[address]ysu[address] [place] [address] eGFRon 05-20-2017 eGFR AA >60 [facility] Comment on above: Order Comment: Order added by Discern Expert. Performed By: #### 1 [id number] ####ROXANN [address]Laly[address] [place] [address] GFR/1.73 sq M predicted among non-blacks MDRD vol rate/area (S/P/Bld) mL/min/{1.73_m2} [facility] Comment on above: Order Comment: Order added by Discern Expert. Performed By: #### 1 [id number] ####ROXANN ZzrHzmv[address] [place] [address] Vital Signs Date Time Vital Sign Value Performing Clinician Facility 01-28-2025 08:07-0400 Body height 170.2 cm Ravin [employer] PILOT SUBMERSIBLE-PAVER OPERATOR Work Phone: [facility] 01-28-2025 08:07-0400 Body mass index (BMI) [Ratio] 27.03 kg/m2 Ravin [employer] PILOT SUBMERSIBLE-PAVER OPERATOR Work Phone: [facility] 01-28-2025 08:07-0400 Body weight 78.29 kg Ravin [employer] PILOT SUBMERSIBLE-PAVER OPERATOR Work Phone: [facility] 01-28-2025 08:07-0400 Diastolic blood pressure 60 mm[Hg] Ravin Wood PILOT SUBMERSIBLE-PAVER OPERATOR Work Phone: [facility] 01-28-2025 08:07-0400 Heart rate 84 /min Ravin Wood PILOT SUBMERSIBLE-PAVER OPERATOR Work Phone: [facility] 01-28-2025 08:07-0400 SaO2% (BldA) [Mass fraction] 95 % Ravin Wood PILOT SUBMERSIBLE-PAVER OPERATOR Work Phone: [facility] 01-28-2025 08:07-0400 Systolic blood pressure 104 mm[Hg] Ravin Wood PILOT SUBMERSIBLE-PAVER OPERATOR Work Phone: [facility] 01-27-2024 10:01-0400 Body height 170.2 cm Ravin [employer] PILOT SUBMERSIBLE-PAVER OPERATOR Work Phone: [facility] 01-27-2024 10:01-0400 Body mass index (BMI) [Ratio] 28.19 kg/m2 Ravin Alexander PILOT SUBMERSIBLE-PAVER OPERATOR Work Phone: [facility] 01-27-2024 10:01-0400 Body weight 81.65 kg Ravin Alexander PILOT SUBMERSIBLE-PAVER OPERATOR Work Phone: [facility] 01-27-2024 10:01-0400 Diastolic blood pressure 72 mm[Hg] Ravin Wood PILOT SUBMERSIBLE-PAVER OPERATOR Work Phone: [facility] 01-27-2024 10:01-0400 Heart rate 88 /min Ravin Alexander PILOT SUBMERSIBLE-PAVER OPERATOR Work Phone: [facility] 01-27-2024 10:01-0400 SaO2% (BldA) [Mass fraction] 95 % Ravin Alexander PILOT SUBMERSIBLE-PAVER OPERATOR Work Phone: [facility] 01-27-2024 10:01-0400 Systolic blood pressure 118 mm[Hg] Ravin Alexander PILOT SUBMERSIBLE-PAVER OPERATOR Work Phone: [facility] 09-25-2023 14:24-0400 Body height 170.2 cm Yehuda Ty PILOT SUBMERSIBLE-PAVER OPERATOR Work Phone: [facility] 09-25-2023 14:24-0400 Body mass index (BMI) [Ratio] 27.88 kg/m2 Yehuda Jakevidya PILOT SUBMERSIBLE-PAVER OPERATOR Work Phone: [facility] 09-25-2023 14:24-0400 Body temperature 98.4 [degF] Yehuda Josephenianíbal PILOT SUBMERSIBLE-PAVER OPERATOR Work Phone: [facility] 09-25-2023 14:24-0400 Body weight 80.74 kg Yehuda Jakeenianíbal PILOT SUBMERSIBLE-PAVER OPERATOR Work Phone: [facility] 09-25-2023 14:24-0400 Diastolic blood pressure 78 mm[Hg] Yehuda Appiah PILOT SUBMERSIBLE-PAVER OPERATOR Work Phone: [facility] 09-25-2023 14:24-0400 Heart rate 101 /min Yehuda Appiah PILOT SUBMERSIBLE-PAVER OPERATOR Work Phone: [facility] 09-25-2023 14:24-0400 Respiratory rate 18 /min Yheuda Appiah PILOT SUBMERSIBLE-PAVER OPERATOR Work Phone: [facility] 09-25-2023 14:24-0400 SaO2% (BldA) [Mass fraction] 96 % Yehuda Appiah PILOT SUBMERSIBLE-PAVER OPERATOR Work Phone: [facility] 09-25-2023 14:24-0400 Systolic blood pressure 110 mm[Hg] Yehuda Appaih PILOT SUBMERSIBLE-PAVER OPERATOR Work Phone: [facility] 01-21-2023 07:56-0400 Body height 170.8 cm Ravin Alexander PILOT SUBMERSIBLE-PAVER OPERATOR Work Phone: [facility] 01-21-2023 07:56-0400 Body mass index (BMI) [Ratio] 28.03 kg/m2 Ravin Wood PILOT SUBMERSIBLE-PAVER OPERATOR Work Phone: [facility] 01-21-2023 07:56-0400 Body weight 81.78 kg Ravin Wood PILOT SUBMERSIBLE-PAVER OPERATOR Work Phone: [facility] [facility] 01-21-2023 07:56-0400 Diastolic blood pressure 74 mm[Hg] Ravin Wood PILOT SUBMERSIBLE-PAVER OPERATOR Work Phone: [facility] 01-21-2023 07:56-0400 Heart rate 68 /min Ravin Wood PILOT SUBMERSIBLE-PAVER OPERATOR Work Phone: [facility] 01-21-2023 07:56-0400 SaO2% (BldA) [Mass fraction] 98 % Ravin Wood PILOT SUBMERSIBLE-PAVER OPERATOR Work Phone: [facility] 01-21-2023 07:56-0400 Systolic blood pressure 130 mm[Hg] Ravin Wood PILOT SUBMERSIBLE-PAVER OPERATOR Work Phone: [facility] 07-30-2022 09:11-0400 Body height 170.8 cm Cornell Humphrey MD Work Phone: [facility] 07-30-2022 09:11-0400 Body mass index (BMI) [Ratio] 27.22 kg/m2 Cornell Humphrey MD Work Phone: [facility] 07-30-2022 09:11-0400 Body weight 79.42 kg Cornell Humphrey MD Work Phone: [facility] 07-30-2022 09:11-0400 Diastolic blood pressure 80 mm[Hg] Cornell Humphrey MD Work Phone: [facility] 07-30-2022 09:11-0400 Heart rate 71 /min Cornell Humphrey MD Work Phone: [facility] 07-30-2022 09:11-0400 SaO2% (BldA) [Mass fraction] 98 % Cornell Humphrey MD Work Phone: [facility] 07-30-2022 09:11-0400 Systolic blood pressure 110 mm[Hg] Cornell Humphrey MD Work Phone: [facility] 01-01-2022 09:55-0400 Body height 170.18 cm Cornell Humphrey Work Phone: -[facility] Work Phone: 01-01-2022 09:55-0400 Body mass index (BMI) [Ratio] 29.97 kg/m2 Cornell Humphrey Work Phone: -[facility] Work Phone: 01-01-2022 09:55-0400 Body surface area Derived from formula 1.98 m2 Cornell Humphrey Work Phone: -[facility] Work Phone: 01-01-2022 09:55-0400 Body weight 86.81 kg Cornell Humphrey Work Phone: -[facility] Work Phone: 01-01-2022 09:55-0400 Diastolic blood pressure 68 mm[Hg] Christopher D Humphrey Work Phone: [facility] Work Phone: 01-01-2022 09:55-0400 Heart rate 85 /min Christopher D Humphrey Work Phone: [facility] Work Phone: 01-01-2022 09:55-0400 SaO2% (BldA) [Mass fraction] 96 % Christopher D Humphrey Work Phone: [facility] Work Phone: 01-01-2022 09:55-0400 Systolic blood pressure 112 mm[Hg] Christopher D Humphrey Work Phone: [facility] Work Phone: 12-15-2021 17:15-0400 Body height 170 cm Christopher Humphrey Other Phone: [facility] 12-15-2021 17:15-0400 Body temperature 96.98 [degF] Christopher Humphrey Other Phone: [facility] 12-15-2021 17:15-0400 Diastolic blood pressure 79 mm[Hg] Christopher Humphrey Other Phone: [facility] 12-15-2021 17:15-0400 Heart rate 77 /min Christopher Humphrey Other Phone: [facility] 12-15-2021 17:15-0400 SaO2% (BldA) [Mass fraction] 98 % Christopher Humphrey Other Phone: [facility] 12-15-2021 17:15-0400 Systolic blood pressure 117 mm[Hg] Christopher Humphrey Other Phone: [facility] 07-13-2021 10:00-0500 Body height 170.18 cm Christopher D Humphrey Work Phone: [employer] Work Phone: 07-13-2021 10:00-0500 Body mass index (BMI) [Ratio] 31.81 kg/m2 Cornell Humphrey Work Phone: [facility] Work Phone: 07-13-2021 10:00-0500 Body surface area Derived from formula 2.04 m2 Cornell Humphrey Work Phone: [employer] Work Phone: 07-13-2021 10:00-0500 Body weight 92.14 kg Cornell Humphrey Work Phone: [employer] [employer] [facility] Work Phone: 07-13-2021 10:00-0500 Diastolic blood pressure 64 mm[Hg] Cornell Humphrey Work Phone: [employer] [employer] [facility] Work Phone: 07-13-2021 10:00-0500 Heart rate 60 /min Cornell Humphrey Work Phone: [employer] [facility] Work Phone: 07-13-2021 10:00-0500 SaO2% (BldA) [Mass fraction] 97 % Cornell Humphrey Work Phone: [employer] [employer] [facility] Work Phone: 07-13-2021 10:00-0500 Systolic blood pressure 108 mm[Hg] Cornell Humphrey Work Phone: [employer] [employer] [facility] Work Phone: 12-29-2020 08:13-0400 Body height 170.18 cm Cornell Humphrey Work Phone: [employer] [employer] [facility] Work Phone: 08-26-2021 08:13-0400 Body mass index (BMI) [Ratio] 31.7 kg/m2 Cornell Humphrey Work Phone: [facility] Work Phone: 12-29-2020 08:13-0400 Body surface area Derived from formula 2.03 m2 Cornell Humphrey Work Phone: [facility] Work Phone: 12-29-2020 08:13-0400 Body temperature 97.1 [degF] Cornell Humphrey Work Phone: [facility] Work Phone: 12-29-2020 08:13-0400 Body weight 91.8 kg Cornell Humphrey Work Phone: [facility] Work Phone: 12-29-2020 08:13-0400 Diastolic blood pressure 64 mm[Hg] Cornell Humphrey Work Phone: [facility] Work Phone: 12-29-2020 08:13-0400 Heart rate 68 /min Cornell Humphrey Work Phone: [facility] Work Phone: 12-29-2020 08:13-0400 SaO2% (BldA) [Mass fraction] 96 % Cornell Humphrey Work Phone: [employer] Work Phone: 12-29-2020 08:13-0400 Systolic blood pressure 104 mm[Hg] Cornell Humphrey Work Phone: [facility] Work Phone: 12-28-2019 10:20-0400 BMI (Body Mass Index) 30.39 kg/m2 Ravin Alexander [facility] Work Phone: 12-28-2019 10:20-0400 Body Temperature 97.3 [degF] Ravin Alexander [facility] Work Phone: 12-28-2019 10:20-0400 Body weight 88.02 kg [facility] Work Phone: 12-28-2019 10:20-0400 BP Diastolic 84 mm[Hg] [facility] Work Phone: Comment on above: Location: [facility]; 12-28-2019 10:20-0400 BP Systolic 124 mm[Hg] Ravin Alexander [facility] Work Phone: Comment on above: Location: [facility]; 12-28-2019 10:20-0400 BSA (Body Surface Area) 2 m2 [facility] [employer] [facility] Work Phone: 12-28-2019 10:20-0400 Height 170.18 cm [facility] Work Phone: 12-28-2019 10:20-0400 Pulse (Heart Rate) 68 /min [facility]avin [facility] Work Phone: 12-28-2019 10:20-0400 Pulse Oximetry 99 % [facility]avin [facility] Work Phone: 06-05-2017 07:47-0500 BMI (Body Mass Index) 30.38 kg/m2 Saji Silva [facility] Work Phone: 06-05-2017 07:47-0500 BP Diastolic 100 mm[Hg] Saji Kristen [facility] Work Phone: 06-05-2017 07:47-0500 BP Systolic 136 mm[Hg] Saji Kristen [facility] Work Phone: 06-05-2017 07:47-0500 Height 170.2 cm Saji Kristen [facility] Work Phone: 06-05-2017 07:47-0500 Pulse (Heart Rate) 84 /min Saji Kristen [facility] Work Phone: 06-05-2017 07:47-0500 Weight 88 kg Saji Silva [facility] Work Phone: Encounters Encounter Date Encounter Type Care Provider Facility Start: 02-23-2025 ambulatory [facility] Facility: [facility] Start: 01-28-2025 End: 01-28-2025 Office outpatient visit 25 minutes Ulule PILOT SUBMERSIBLE-PAVER OPERATOR Work Phone: [facility] Comment on above: Benign hypertension (Primary Dx); Breast cancer screening by mammogram; Prediabetes; Mild intermittent asthma without complication (HHS-HCC); Encounter for immunization; Elevated LDL cholesterol level; Major depressive disorder in partial remission, unspecified whether recurrent Start: 01-28-2025 End: 01-28-[address] [facility] Start: 01-27-2024 End: 01-27-2024 Office outpatient visit 25 minutes Ulule PILOT SUBMERSIBLE-PAVER OPERATOR Work Phone: [facility] Comment on above: Benign hypertension; Prediabetes; Heart palpitations; Mild intermittent asthma without complication (HHS-HCC); Breast cancer screening by mammogram Start: 01-07-2024 End: 01-07-2024 ambulatory [facility] Start: 09-25-2023 End: 09-25-2023 [facility] Start: 09-25-2023 End: 09-25-2023 Patient encounter procedure Yehuda Appiah PILOT SUBMERSIBLE-PAVER OPERATOR Work Phone: [facility] Comment on above: Non-recurrent acute serous otitis media of both ears (Primary Dx) Start: 03-19-2023 End: 03-19-2023 ambulatory [facility] Start: 01-24-2023 End: 01-24-2023 ambulatory [facility] Work Phone: Start: 01-24-2023 End: 01-24-2023 Patient encounter procedure [facility] Work Phone: Start: 01-21-2023 End: 01-21-2023 Office outpatient visit 25 minutes Ravin BARDALESPAVER OPERATOR Work Phone: [facility] Comment on above: Encounter for screen ing mammogram for malignant neoplasm of breast (Primary Dx); Benign hypertension; Prediabetes; Heart palpitations; Mild intermittent asthma without complication; Screening, lipid; Other fatigue; Dysuria Start: 07-30-2022 End: 07-30-2022 Office outpatient visit 25 minutes Cornell Humphrey MD Work Phone: [facility] Comment on above: Preop examination (P rimary Dx); Mild intermittent asthma without complication; Benign hypertension; Type 2 diabetes mellitus without complication, without long-term current use of insulin ([facility]) Start: 07-30-2022 End: 07-30-2022 Preprocedural examination done Cornell Humphrey MD Work Phone: [facility] Work Phone: Start: 01-01-2022 Office outpatient vi sit 25 minutes Cornell Humphrey Work Phone: -[facility] Work Phone: Start: 01-01-2022 ambulatory Cornell Humphrey Facility:[id number] Start: 12-15-2021 End: 12-15-2021 Emergency department patient visit Scott Guzman [facility] Start: 11-08-2021 AUDIT Cornell Humphrey Work Phone: [facility] Work Phone: Start: 09-29-2021 End: 09-29-2021 Patient encounter procedure [facility], [place] pens and pencils repairer Off Start: 09-26-2021 End: 09-26-2021 Patient encounter procedure [facility], [employer] pens and pencils repairer Off Start: 07-18-2021 End: 07-18-2021 Patient encounter procedure [facility], Miguelito pens and pencils repairer Off Start: 07-13-2021 Office outpatient vi sit 15 minutes Cornell Humphrey Work Phone: [facility] Work Phone: Start: 07-13-2021 ambulatory Ms. Ravin Alexander Facility:[id number] Start: 06-22-2021 End: 06-22-2021 Patient encounter procedure [facility] Start: 12-29-2020 Office outpatient vi sit 25 minutes Cornell Humphrey Work Phone: [facility] Work Phone: Start: 07-13-2020 End: 07-13-2020 Orders Only Angela Landin [place] Work Phone: [facility] Start: 12-28-2019 Patient encounter procedure Ravin Alexander [facility] Work Phone: Start: 12-24-2019 Patient encounter procedure Ravin Alexander [facility] Work Phone: Start: 08-26-2019 Patient encounter procedure ALISON PIERCE [facility] Start: 05-12-2018 Patient encounter procedure Leonard Feng Facility:[place] Start: 01-09-2018 End: 01-10-2018 Patient encounter Ravin Alexander Facility:[facility] Start: 12-18-2017 End: 12-18-2017 Patient encounter Ravin Alexander Facility:[facility] Start: 12-11-2017 End: 12-12-2017 Patient encounter Ravin Monica Alexander Facility:[facility] Start: 11-05-2017 End: 11-06-2017 Patient encounter Ravin Monica Alexander Facility:[facility] Start: 11-04-2017 End: 11-05-2017 Patient encounter Ravin Monica Alexander Facility:[facility] Start: 11-04-2017 End: 11-05-2017 Patient encounter Ravin Monica Alexander Facility:[facility] Start: 10-10-2017 End: 10-11-2017 Patient encounter Ravin Monica Alexander Facility:[facility] Start: 06-19-2017 End: 06-20-2017 Patient encounter Ravin Monica Alexander Facility:[facility] Start: 06-18-2017 End: 06-19-2017 Ambulatory Saji Silva Work Phone: [facility] Start: 06-05-2017 Office/outpatient vi sit, new, level 3 Saji Silva Work Phone: [facility] Start: 05-20-2017 End: 05-21-2017 Patient encounter Ravin Alexander Facility:[facility] Start: 05-20-2017 End: 05-21-2017 Patient encounter Ravin Alexander Facility:[facility] Start: 04-25-2017 End: 04-26-2017 Patient encounter Scott Pearce [facility] Facility:[facility] Procedures Date Procedure Procedure Detail Performing Clinician Start: 01-31-2024 Mammography Ravin W ood PILOT SUBMERSIBLE-PAVER OPERATOR Work Phone: Start: 03-19-2023 [place]-WITH REFLEX TO BRIAN CORNELL HUMPHREY Start: 03-19-2023 BILL ONLY-THYROGLOBULIN CORNELL HUMPHREY Start: 03-19-2023 C-reactive protein CHRI JOSE G HUMPHREY Start: 03-19-2023 CBC panel - Blood by Automated count CORNELL HUMPHREY Start: 03-19-2023 Comprehensive metabo lic 2000 panel - Serum or Plasma CORNELL HUMPHREY Start: 03-19-2023 CORTISOL KERMIT HUMPHREY Start: 03-19-2023 DHEA-SULFATE KERMIT HUMPHREY Start: 03-19-2023 ESTRADIOL KERMIT R MILAGRO Start: 03-19-2023 Glucose [Mass/volume ] in Serum or Plasma CORNELL HUMPHREY Start: 03-19-2023 Hemoglobin A1c/Hemoglobin.total in Blood CORNELL HUMPHREY Start: 03-19-2023 INSULIN, RANDOM JERED PHER MILAGRO Start: 03-19-2023 Lipid panel KERMIT HUMPHREY Start: 03-19-2023 PROGESTERONE KERMIT R MILAGRO Start: 03-19-2023 SEDIMENTATION RATE, AUTOMATED CORNELL HUMPHREY Start: 03-19-2023 SEX HORMONE BINDING GLOBULIN CORNELL HUMPHREY Start: 03-19-2023 TESTOSTERONE,FREE AND TOTAL CORNELL HUMPHREY Start: 03-19-2023 THYROGLOBULIN AND ANTITHYROGLOBULIN CORNELL HUMPHREY Start: 03-19-2023 THYROID PEROXIDASE ( TPO) ANTIBODY CORNELL HUMPHREY Start: 03-19-2023 THYROXINE, FREE JERED PHER MILAGRO Start: 03-19-2023 TRIIODOTHYRONINE, FREE CORNELL HUMPHREY Start: 03-19-2023 TRIIODOTHYRONINE, TOTAL CORNELL HUMPHREY Start: 03-19-2023 Lipid 1996 panel - S guilherme or Plasma Yehuda Appiah PILOT SUBMERSIBLE-PAVER OPERATOR Work Phone: Start: 03-19-2023 Thyrotropin [Units/v olume] in Serum or Plasma CORNELL HUMPHREY Start: 02-07-2023 Mammography Ravin harp PILOT SUBMERSIBLE-PAVER OPERATOR Work Phone: Start: 01-24-2023 End: 01-24-2023 Screening mammography Start: 01-01-2022 Lipid 1996 panel - S guilherme or Plasma Cornell Humphrey MD Work Phone: Start: 06-22-2021 End: 06-22-2021 Screening mammography Start: 01-16-2021 Colonoscopy Kermit Humphrey MD Work Phone: Start: 01-16-2021 Colonoscopy Kermit Humphrey Work Phone: Comment on above: Repeat 10 years; Start: 12-19-2018 Microscopic observat ion [Identifier] in Cervix by Cyto stain Ravin Alexander PILOT SUBMERSIBLE-PAVER OPERATOR Work Phone: section Ravin Keys od Cholecystectomy Ravin long Reduction mammoplasty Bryant Alexander Plan of Treatment Date Care Activity Detail Author Start: 01-16-2031 Screening for malign ant neoplasm of colon [facility] Start: 12-27-2029 DTaP/Tdap/Td Vaccine s (5 - Td or Tdap) DTaP/Tdap/Td Vaccines (5 - Td or Tdap) [facility] Start: 03-19-2028 Lipid panel Lipid Panel [facility] Start: 05-03-2025 End: 05-03-2025 Patient encounter procedure 05/03/2025 8:00 AM EST Office Visit [place] [address] [phone] Ravin Alexander PILOT SUBMERSIBLE-PAVER OPERATOR [address] [id number] [facility] Start: 01-30-2025 Screening for malign ant neoplasm of breast Mammogram [facility] Start: 01-28-2025 End: 01-28-2026 CBC W Auto Differential panel - Blood CBC and Auto Differential Lab Routine Benign hypertension Expected: 01/28/2025 (Approximate), Expires: 01/28/2026 [facility] Work Phone: Comment on above: Expected: 01/28/2025 (Approximate), Expires: 01/28/2026 Start: 01-28-2025 End: 01-28-2026 Comprehensive metabolic 2000 panel - Serum or Plasma Comprehensive Metabolic Panel Lab Routine Elevated LDL cholesterol level Expected: 01/28/2025 (Approximate), Expires: 01/28/2026 [facility] Work Phone: Comment on above: Expected: 01/28/2025 (Approximate), Expires: 01/28/2026 Start: 01-28-2025 End: 03-30-2026 DBT Breast - bilateral BI mammo bilateral screening tomosynthesis Imaging Routine Breast cancer screening by mammogram Expected: 01/28/2025, Expires: 03/30/2026 [facility] Service Area Work Phone: Comment on above: Expected: 01/28/2025 , Expires: 03/30/2026 Start: 01-28-2025 End: 01-28-2026 Lipid 1996 panel - Serum or Plasma Lipid Panel Lab Routine Elevated LDL cholesterol level Expected: 01/28/2025 (Approximate), Expires: 01/28/2026 [facility] Work Phone: Comment on above: Expected: 01/28/2025 (Approximate), Expires: 01/28/2026 Start: 01-28-2025 End: 01-28-2025 Patient encounter procedure 01/28/2025 8:00 AM EDT Office Visit [facility] [address] [phone] Ravin Alexander APRN-PAVER OPERATOR [address] [id number] [facility] Start: 01-06-2025 Diabetes mellitus screening Diabetes Screening [facility] Start: 01-04-2025 COVID-19 Vaccine ( season) COVID-19 Vaccine () [facility] Start: 03-19-2024 Hemoglobin A1c measurement Diabetes: Hemoglobin A1C [facility] Start: 03-19-2024 Lipid panel Lipid Panel [facility] Start: 03-19-2024 Thyroid stimulating hormone measurement TSH Level [facility] Start: 02-08-2024 Screening for malign ant neoplasm of breast Mammogram [facility] Start: 01-27-2024 End: 03-28-2025 DBT Breast - bilateral BI mammo bilateral screening tomosynthesis Imaging Routine Breast cancer screening by mammogram Expected: 01/27/2024, Expires: 03/28/2025 [facility] Service Area Work Phone: Comment on above: Expected: 01/27/2024 , Expires: 03/28/2025 Start: 01-27-2024 End: 01-26-2025 Hemoglobin A1c/Hemoglobin.total in Blood Hemoglobin A1C Lab Routine Prediabetes Expected: 01/27/2024 (Approximate), Expires: 01/26/2025 [facility] Work Phone: Comment on above: Expected: 01/27/2024 (Approximate), Expires: 01/26/2025 Start: 01-27-2024 End: 01-26-2025 Lipid 1996 panel - Serum or Plasma Lipid Panel Lab Routine Prediabetes Expected: 01/27/2024 (Approximate), Expires: 01/26/2025 [facility] Work Phone: Comment on above: Expected: 01/27/2024 (Approximate), Expires: 01/26/2025 Start: 01-27-2024 End: 01-26-2025 TSH with reflex to Free T4 if abnormal TSH with reflex to Free T4 if abnormal Lab Routine Prediabetes Expected: 01/27/2024 (Approximate), Expires: 01/26/2025 [facility] Work Phone: Comment on above: Expected: 01/27/2024 (Approximate), Expires: 01/26/2025 Start: 01-25-2024 Screening for malign ant neoplasm of breast Mammogram [facility] Start: 01-23-2024 End: 01-23-2024 Patient encounter procedure 01/23/2024 8:00 AM EDT Office Visit [facility] [address] [place] [phone] ArthurRavin Monica, PILOT SUBMERSIBLE-PAVER OPERATOR [address] [place] [address] [facility] Start: 01-05-2024 COVID-19 Vaccine ( season) COVID-19 Vaccine () [facility] Start: 01-05-2024 Influenza vaccination Influenz a Vaccine (Season Ended) [facility] Start: 06-19-2023 Hemoglobin A1c measurement Diabetes: Hemoglobin A1C [facility] Start: 01-21-2023 End: 01-28-2023 Bacteria identified in Urine by Culture [facility] Work Phone: Comment on above: Expected: 01/21/2023 (Approximate), Expires: 01/28/2023 Start: 01-21-2023 End: 03-23-2024 DBT Breast - bilateral BI mammo bilateral screening tomosynthesis Imaging Routine Encounter for screening mammogram for malignant neoplasm of breast Expected: 01/21/2023, Expires: 03/23/2024 [facility] Service Area Work Phone: Comment on above: Expected: 01/21/2023 , Expires: 03/23/2024 Start: 01-21-2023 End: 01-22-2024 Lipid 1996 panel - Serum or Plasma Lipid Panel Lab Routine Screening, lipid Expected: 01/21/2023 (Approximate), Expires: 01/22/2024 [facility] Work Phone: Comment on above: Expected: 01/21/2023 (Approximate), Expires: 01/22/2024 Start: 01-21-2023 End: 01-22-2024 Thyrotropin [Units/volume] in Serum or Plasma Thyroid Stimulating Hormone Lab Routine Other fatigue Expected: 01/21/2023 (Approximate), Expires: 01/22/2024 [facility] Work Phone: Comment on above: Expected: 01/21/2023 (Approximate), Expires: 01/22/2024 Start: 01-10-2023 EPV, Provider: Ravin Alexander, Status: Pen, Time: 9:00 AM EPV, Provider: Ravin Alexander, Status: Pen, Time: 9:00 AM -[facility] Work Phone: Start: 01-10-2023 End: 01-10-2023 Patient encounter procedure 01/10/2023 9:00 AM EDT Office Visit [facility] [address] [facility] [place] [phone] Ravin Alexander L, PILOT SUBMERSIBLE-PAVER OPERATOR [address] [place] [address] [facility] Start: 01-04-2023 COVID-19 Vaccine ( season) COVID-19 Vaccine ( season) [facility] Start: 01-04-2023 Influenza vaccination Influenza Vacc ine (#1) [facility] Start: 01-01-2023 Lipid panel Lipid Panel [facility] Start: 10-30-2022 Hemoglobin A1c measurement Diabetes: Hemoglobin A1C [facility] Start: 07-30-2022 End: 07-31-2023 aPTT in Platelet poor plasma by Coagulation assay APTT Lab Routine Preop examination Expected: 07/30/2022 (Approximate), Expires: 07/31/2023 [facility] Work Phone: Comment on above: Expected: 07/30/2022 (Approximate), Expires: 07/31/2023 Start: 07-30-2022 End: 07-31-2023 CBC panel - Blood by Automated count CBC Lab Routine Preop examination Expected: 07/30/2022 (Approximate), Expires: 07/31/2023 [facility] Service Area Work Phone: Comment on above: Expected: 07/30/2022 (Approximate), Expires: 07/31/2023 Start: 07-30-2022 End: 07-31-2023 Comprehensive metabolic 2000 panel - Serum or Plasma Comprehensive Metabolic Panel Lab Routine Preop examination Benign hypertension Type 2 diabetes mellitus without complication, without long-term current use of insulin (CMS/HCC) Expected: 07/30/2022 (Approximate), Expires: 07/31/2023 [facility] Work Phone: Comment on above: Expected: 07/30/2022 (Approximate), Expires: 07/31/2023 Start: 07-30-2022 End: 07-31-2023 Hemoglobin A1c/Hemoglobin.total in Blood Hemoglobin A1C Lab Routine Preop examination Type 2 diabetes mellitus without complication, without long-term current use of insulin (CMS/HCC) Expected: 07/30/2022 (Approximate), Expires: 07/31/2023 [facility] Work Phone: Comment on above: Expected: 07/30/2022 (Approximate), Expires: 07/31/2023 Start: 07-30-2022 End: 07-31-2023 Prothrombin time (PT) Protime-INR Lab Routine Preop examination Expected: 07/30/2022 (Approximate), Expires: 07/31/2023 [facility] Work Phone: Comment on above: Expected: 07/30/2022 (Approximate), Expires: 07/31/2023 Start: 06-22-2022 Screening for malign ant neoplasm of breast Mammogram [facility] Start: 06-13-2022 COVID-19 Vaccine (5 - Pfizer series) COVID-19 Vaccine (5 - Pfizer series) [facility] Start: 01-01-2022 EPV, Provider: Ravin Alexander, Status: Pen, Time: 10:00 AM EPV, Provider: Ravin Alexander, Status: Pen, Time: 10:00 AM [facility] Work Phone: Start: 01-01-2022 Patient encounter procedure [facility] Start: 12-19-2021 Screening for malign ant neoplasm of cervix [facility] Start: 08-17-2021 EPV, Provider: Ravin Alexander, Status: Pen, Time: 2:00 PM EPV, Provider: Ravin Alexander, Status: Pen, Time: 2:00 PM [facility] Work Phone: Start: 03-31-2021 Hemoglobin A1c measurement Diabetes: Hemoglobin A1C [facility] Start: 02-22-2020 Pneumococcal Vaccine : Pediatrics (0 to 5 Years) and At-Risk Patients (6 to 64 Years) (2 - PPSV23 if available, else PCV20) Pneumococcal Vaccine: Pediatrics (0 to 5 Years) and At-Risk Patients (6 to 64 Years) (2 - PPSV23 if available, else PCV20) [facility] Start: 02-22-2020 Pneumococcal Vaccine : Pediatrics (0 to 5 Years) and At-Risk Patients (6 to 64 Years) (2 - PPSV23 or PCV20) Pneumococcal Vaccine: Pediatrics (0 to 5 Years) and At-Risk Patients (6 to 64 Years) (2 - PPSV23 or PCV20) [facility] Start: 02-22-2020 Pneumococcal Vaccine : Pediatrics (0 to 5 Years) and At-Risk Patients (6 to 64 Years) (2 of 2 - PPSV23 or PCV20) Pneumococcal Vaccine: Pediatrics (0 to 5 Years) and At-Risk Patients (6 to 64 Years) (2 of 2 - PPSV23 or PCV20) [facility] Start: 01-05-2020 Influenza vaccinatio n given Sequential Influenza Vaccine (#1) [facility] Start: 11-15-2019 Administration of he rpes zoster vaccine Zoster Vaccines (1 of 2) [facility] Start: 11-15-2019 Screening for malign ant neoplasm of colon [facility] Start: 11-15-2019 Zoster Vaccines (1 of 2) Zoster Vacc benjamin (1 of 2) [facility] Start: 01-04-2017 Influenza vaccination SEQUENTI AL INFLUENZA VACCINE (#1) [facility] Work Phone: Start: 2009 Screening for malign ant neoplasm of breast Mammogram [facility] Start: 1990 Screening for malign ant neoplasm of cervix [facility] Start: 1988 Urine screening for protein Diabetes: Urine Protein Screening [facility] Start: 11-15-1987 Hepatitis C antibody , confirmatory test Hepatitis C Screening [facility] Start: 11-15-1987 Hepatitis C screening Hepatitis C Sc reechito [facility] Start: 1985 COVID-19 Vaccine (1 of 2) COVI D-19 Vaccine (1 of 2) [facility] Start: 1984 HIV screening HIV Screening [facility] Start: 1981 Adolescent depressio n screening assessment Depression Screening (PHQ9) [facility] Start: 11-15-1979 Diabetic foot examination Diabetes: Foot Exam [facility] Start: 11-15-1979 Glaucoma screening Diabetes: R etinopathy Screening [facility] Start: 11-15-1979 Ophthalmic examinati on and evaluation Diabetes: Retinopathy Screening [facility] Start: 1973 IPV Vaccines (5 of 5 - 5-dose series) IPV Vaccines (5 of 5 - 5-dose series) [facility] Start: 1972 History and physical examination, annual for health maintenance Wellness Visit [facility] Start: 1969 HIV screening HIV Screening [facility] Start: 1969 Screening for malign ant neoplasm of cervix PAP SMEAR [facility] Work Phone: Start: 1969 Screening for malign ant neoplasm of colon [facility] Start: 1969 Screening mammography [facility]ammogram [facility] Start: [address] [facility] Work Phone: Start: 1969 Yearly Adult Physical Yearly Adult P hysical [facility] End: 06-06-[address] CALCIUM SCORE SCREENING Routine SOBOE (shortness of breath on exertion) 1 Occurrences starting 06/05/2017 until 06/06/2018 [facility] Work Phone: H/O: section History of section [facility] History of cholecystectomy History of cholecystectomy [facility] History of colonoscopy Status post colono scopy [facility] History of reduction of breast Status post breast reduction [facility] Immunizations Immunization Date Immunization Notes Care Provider Huber courtney 01-28-2025 influenza, seasonal, injectable, preservative free Ravin Wood PILOT SUBMERSIBLE-PAVER OPERATOR Work Phone: [facility] Work Phone: 01-27-2024 Pneumococcal conjuga te vaccine, 20-valent (PREVNAR 20) Ravin Alexander PILOT SUBMERSIBLE-PAVER OPERATOR Work Phone: [facility] 01-27-2024 Seasonal, trivalent, recombinant, injectable influenza vaccine, preservative free Ravin Alexander PILOT SUBMERSIBLE-PAVER OPERATOR Work Phone: [facility] Work Phone: 04-18-2022 influenza, seasonal, injectable, preservative free Cornell Humphrey MD Work Phone: [facility] Work Phone: 04-18-2022 Pfizer COVID-19 vaccine, bivalent, age 12 years and older (30 mcg/0.3 mL) Yehuda Appiah PILOT SUBMERSIBLE-PAVER OPERATOR Work Phone: [facility] Work Phone: 04-18-2022 Pfizer Purple Cap SARS-CoV-2 Cornell Humphrey MD Work Phone: [facility] Work Phone: 04-18-2022 influenza virus vaccine, unspecified formulation Ravin Alexander PILOT SUBMERSIBLE-PAVER OPERATOR Work Phone: [facility] Work Phone: 09-12-2021 Comirnaty 30 MCG/0.3 ML Intramuscular Suspension Cornell Humphrey Work Phone: -Medical [facility] Work Phone: 09-12-2021 SARS-CoV-2, Unspecified Cornell Humphrey MD Work Phone: [facility] Work Phone: 08-11-2020 Pfizer-BioNTech COVID-19 Vacc 30 MCG/0.3ML Intramuscular Suspension Conrell Humphrey Work Phone: -Medical [facility] Work Phone: 07-15-2020 Pfizer-BioNTsiOPTICA COVID-19 Vacc 30 MCG/0.3ML Intramuscular Suspension Cornell Humphrey Work Phone: -[facility] Work Phone: 01-20-2020 Influenza, injectabl e, Madin Trista Canine Kidney, preservative free, quadrivalent Cornell Long Humphrey Work Phone: -[facility] Work Phone: 12-28-2019 pneumococcal conjuga te vaccine, 13 valent; Translations: [Prevnar 13 Intramuscular Suspension] Cordelljuan Long Humphrey Work Phone: -[facility] Work Phone: Comment on above: Series: 12-28-2019 tetanus toxoid, reduced diphtheria toxoid, and acellular pertussis vaccine, adsorbed; Translations: [Tdap (Boostrix)] Vincentdiegojuan Long Humphrey Work Phone: -[facility] Work Phone: Comment on above: Series: 04-16-2019 influenza, seasonal, injectable Cornell Long Humphrey Work Phone: -Medical [facility] Work Phone: Comment on above: Series: 04-05-2019 influenza, seasonal, injectable Ravin Wood -[facility] Work Phone: 02-14-2018 influenza, injectabl e, quadrivalent, preservative free Vincentdiegojuan Long Milagro Work Phone: -[facility] Work Phone: 02-12-2017 influenza, seasonal, injectable, preservative free Cornell Long Humphrey Work Phone: -[facility] [facility] Work Phone: 01-14-2015 influenza, seasonal, injectable Cornell Humphrey Work Phone: -[facility] Work Phone: 05-22-2000 hepatitis B vaccine, adult dosage Ravin Alexander [facility] Work Phone: Comment on above: Series: 12-20-1999 hepatitis B vaccine, adult dosage Ravin Alexander [facility] Work Phone: Comment on above: Series: 11-15-1999 hepatitis B vaccine, adult dosage Ravin Alexander [facility] Work Phone: Comment on above: Series: 05-01-1973 measles, mumps and rubella virus vaccine Cornell Humphrey Work Phone: [facility] 06-15-1970 diphtheria, tetanus toxoids and acellular pertussis vaccine Cornell Humphrey MD Work Phone: [facility] Work Phone: 06-15-1970 diphtheria, tetanus toxoids and pertussis vaccine Cornell Humphrey Work Phone: [facility] Work Phone: 06-15-1970 poliovirus vaccine, inactivated Cornell Humphrey MD Work Phone: [facility] Work Phone: 06-15-1970 trivalent poliovirus vaccine, live, oral Cornell Humphrey Work Phone: [facility] Work Phone: 06-15-1970 poliovirus vaccine, unspecified formulation Yehuda Appiah APRN-PAVER OPERATOR Work Phone: [facility] Work Phone: 03-22-1970 diphtheria, tetanus toxoids and acellular pertussis vaccine Cornell Humphrey MD Work Phone: [facility] Work Phone: 03-22-1970 diphtheria, tetanus toxoids and pertussis vaccine Cornell Humphrey Work Phone: [facility] Work Phone: 03-22-1970 poliovirus vaccine, inactivated Cornell Humphrey MD Work Phone: [facility] Work Phone: 03-22-1970 trivalent poliovirus vaccine, live, oral Cornell Humphrey Work Phone: [facility] 01-19-1970 diphtheria, tetanus toxoids and acellular pertussis vaccine Cornell Humphrey MD Work Phone: [facility] Work Phone: 01-19-1970 diphtheria, tetanus toxoids and pertussis vaccine Cornell Humphrey Work Phone: -[facility] Work Phone: 01-19-1970 poliovirus vaccine, inactivated Cornell Humphrey MD Work Phone: [facility] Work Phone: 01-19-1970 trivalent poliovirus vaccine, live, oral Cornell Humphrey Work Phone: -[facility] Work Phone: Payers Date Payer Category Payer Self-pay [id number] 2018 [facility] [id number] 2018 Unknown 2018 Unknown [id number] 2018 Unknown [id number] 2017 Private Health Insurance 2015 Private Health Insurance [id number] 2015 Private Health Insurance [employer]ET[employer] A ETNA CHOICE POS/POSII/PREMIER CARE/PREMIER CARE PLUS [id number] 2015-Present [id number] 1969 Unknown [id number] 1969 Unknown [id number] 1969 Unknown [id number] 1969 Unknown [id number] 1969 Unknown [id number] 1969 Unknown [id number] 1969 Unknown [id number] 1969 Unknown [id number] Unknown 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 (finding) [facility] Start: 01-21-2023 End: 01-28-2025 Former smoker Former smoker [facility] Work Phone: Start: 1970 Sex Assigned At Female [facility] Tobacco smoking consumption unknown [facility] End: 05-06-2006 History of tobacco use Cigarette Smoker [facility] Work Phone: History of tobacco use Passive smoker [facility] Work Phone: Start: 01-21-2023 End: 01-28-2025 Alcohol intake Lifetime non-drinker (finding) [facility] Work Phone: Start: 01-21-2023 End: 01-28-2025 Tobacco use panel [facility] Work Phone: Start: 07-20-2022 End: 01-27-2024 Exposure to SARS-CoV-2 (event) Not sure [facility] Start: 03-30-2022 Sex Female [facility] NEGATED: Highlighted row - - [facility] Work Phone: Medical Equipment Procedure Code Equipment Code Equipment Origin al Text Equipment Identifier Dates as directed Start: 01-09-2024 Functional Status Date Assessment Result Facility 01-28-2025 Functional status 104/60 [facility] Work Phone: 01-28-2025 Vital signs 84 01/28/2025 8: 07 AM Colleen Reddy CMA [facility] Work Phone: 01-28-2025 Patient Health Questionnaire 2 item (PHQ-2) [Reported] [facility] Work Phone: 01-28-2025 [facility] Work Phone: NEGATED: Highlighted row Functional performance Functional status health issues are not documented Disease [facility] Work Phone: Mental Status Date Assessment Result Facility NEGATED: Highlighted row Cognitive function [Interpretation] Cognitive status health issues are not documented Disease [facility] Work Phone: Clinical Notes 01-01-2020 to 01-28-2025 Assessment & Plan Note - ARELI Stearns - 01/28/2025 8:00 AM EDTAssessment & Plan Note - [facility] Stearns - 01/28/2025 8:00 AM EDTPatient InstructionsAttachments Note Date & Type Note Facility 01-28-2025 Evaluation + Plan note Associated Problem(s): Breast cancer screening by mammogram Schedule MMG Orders: BI mammo bilateral screening tomosynthesis; Future [facility] Work Phone: 01-28-2025 Evaluation + Plan note Associated Problem(s): Benign hypertension [facility] blood pressure readings: None Denies dizziness, lightheadedness, headache, chest pain or syncopal episodes Blood work from July 2024 shows glucose 88, BUN 13, creatinine 0.67, GFR 104, sodium 139, potassium 4.3, calcium 9.5 Orders: CBC and Auto Differential; Future Follow Up In Primary Care - Established; Future [facility] Work Phone: 01-28-2025 Evaluation + Plan note Associated Problem(s): Prediabetes Lab Results Component Value Date HGBA1C 4.7 03/19/2023 Treated w/ metformin & Jardiance per her FORM DESIGNER Most recent hemoglobin A1c 5.5% from July 2024 not as active as she would like to be and describes her diet as "crappy" Orders: Follow Up In Primary Care - Established; Future [facility] Work Phone: 01-28-2025 Evaluation + Plan note Associated Problem(s): Mild intermittent asthma without complication ([facility]) Continue Singulair Recently had COVID in November; recommend COVID booster in February Has not used Albuterol since the Spring months Reccomend influenza vaccination today Orders: Follow Up In Primary Care - Established; Future [facility] Work Phone: 01-28-2025 Evaluation + Plan note Associated Problem(s): Major depressive disorder in partial remission In August of this past year developed depressive symptoms and was started on thyroid medication and Wellbutrin by her FORM DESIGNER. At that time she had stopped exercising and made poor dietary choices. She is feeling better now and is motivated to start cleaning up her diet and trying to walk on a more consistent basis. Blood work from September 2024 shows total T3 109, free T41.3, TSH 1.81, free T33.6 B12 229, estradiol 57, total testosterone 6 DHEA S102, FSH 5.5. [facility] Work Phone: 01-28-2025 History of Presen t illness Narrative Subjective Patient ID: Sandra Abdi is a 54 y.o. female who presents for Annual Exam (Annual follow up). Sandra comes to the office for a 1Y OV Cervical cancer screening: Last Pap 01/24/2024 through her FORM DESIGNER Review of Systems Constitutional: Negative for chills and fever. Respiratory: Negative for shortness of breath. Cardiovascular: Negative for chest pain, palpitations and leg swelling. Gastrointestinal: Negative for abdominal pain and blood in stool. Neurological: Negative for dizziness, light-headedness and headaches. Psychiatric/Behavioral: Positive for dysphoric mood. Negative for suicidal ideas. Objective BP 104/60 Pulse 84 Ht 1.702 m (5' 7") Wt 78.3 kg (172 lb 9.6 oz) SpO2 95% BMI 27.03 kg/m Physical Exam Vitals and nursing note reviewed. Constitutional: Appearance: Normal appearance. HENT: Head: Normocephalic. Neck: Thyroid: No thyroid mass, thyromegaly or thyroid tenderness. Vascular: No carotid bruit. Cardiovascular: Rate and Rhythm: Normal rate and regular rhythm. Heart sounds: Normal heart sounds. Pulmonary: Effort: Pulmonary effort is normal. Breath sounds: Normal breath sounds. Abdominal: General: Abdomen is flat. Bowel sounds are decreased. Palpations: Abdomen is soft. Tenderness: There is no abdominal tenderness. Musculoskeletal: Cervical back: Normal range of motion. Lymphadenopathy: Cervical: No cervical adenopathy. Skin: General: Skin is warm and dry. Neurological: General: No focal deficit present. Mental Status: She is alert and oriented to person, place, and time. Psychiatric: Mood and Affect: Mood normal. Thought Content: Thought content normal. Assessment/Plan Assessment & Plan Breast cancer screening by mammogram Schedule MMG Orders: BI mammo bilateral screening tomosynthesis; Future Benign hypertension [facility] blood pressure readings: None Denies dizziness, lightheadedness, headache, chest pain or syncopal episodes Blood work from July 2024 shows glucose 88, BUN 13, creatinine 0.67, GFR 104, sodium 139, potassium 4.3, calcium 9.5 Orders: CBC and Auto Differential; Future Follow Up In Primary Care - Established; Future Prediabetes Lab Results Component Value Date HGBA1C 4.7 03/19/2023 Treated w/ metformin & Jardiance per her FORM DESIGNER Most recent hemoglobin A1c 5.5% from July 2024 not as active as she would like to be and describes her diet as "crappy" Orders: Follow Up In Primary Care - Established; Future Mild intermittent asthma without complication ([facility]) Continue Singulair Recently had COVID in November; recommend COVID booster in February Has not used Albuterol since the Spring months Reccomend influenza vaccination today Orders: Follow Up In Primary Care - Established; Future Encounter for immunization Orders: Flu vaccine, trivalent, preservative free, age 6 months and greater (Fluraix/Fluzone/Flulaval) Elevated LDL cholesterol level Last cholesterol panel from July 2024 shows total cholesterol 184, HDL 48, triglycerides 87, LDL 117, cholesterol HDLC ratio 3.8. Family history significant of mother with stroke and father with cardiovascular disease [place] at age 72 Discussed with Sandra today starting on cholesterol medication for primary prevention Greater than 15 minutes were spent assessing and discussing cardiovascular risk and, if needed, lifestyle modifications recommended, including nutritional choices, exercise, and elimination of habits contributing to the risk. We agreed on a plan to reduce the current cardiovascular risk. Aspirin use\\distant use was discussed following the guidelines of the [employer]. Start Lipitor 10 mg daily, check lipid panel in 3 months. 10% ASCVD risk 3.8% For any new medications that were prescribed today, the patient was educated about their indications for use, administration, frequency and potential side effects of the medication. Orders: Lipid Panel; Future Comprehensive Metabolic Panel; Future Follow Up In Primary Care - Established; Future atorvastatin (Lipitor) 10 mg tablet; Take 1 tablet (10 mg) by mouth once daily. Major depressive disorder in partial remission, unspecified whether recurrent In August of this past year developed depressive symptoms and was started on thyroid medication and Wellbutrin by her FORM DESIGNER. At that time she had stopped exercising and made poor dietary choices. She is feeling better now and is motivated to start cleaning up her diet and trying to walk on a more consistent basis. Blood work from September 2024 shows total T3 109, free T41.3, TSH 1.81, free T33.6 B12 229, estradiol 57, total testosterone 6 DHEA S102, FSH 5.5. documented in this encounter [facility] Work Phone: 01-28-2025 Instructions [facility] Stearns - 01/28/2025 8:00 AM EDT Office visit in 3 months. Please complete your blood work prior to your next office visit and we will review at that upcoming appointment. If you have been asked to fast for your upcoming bloodwork please don't eat or drink 12 hours prior to your blood work. You may have water, black coffee or tea without creamer, milk or sugar. Schedule mammogram You received your influenza vaccination today Start Lipitor 10 mg by mouth daily Try to increase your physical activity such as walking 30 minutes daily and focus on more plant based foods which are high in protein and fiber while minimizing red meat, foods that are high in trans or saturated fats, processed foods & pop. The following attachments cannot be sent through Care Everywhere.Can foods or supplements lower cholesterol? (Tristanian)Atorvastatin, ADULT (Tristanian)documented in this encounter [facility] Work Phone: 01-28-2025 Miscellaneous Notes Associated Problem(s): Breast cancer screening by mammogram Schedule MMG Orders: BI mammo bilateral screening tomosynthesis; Future Associated Problem(s): Benign hypertension [facility] blood pressure readings: None Denies dizziness, lightheadedness, headache, chest pain or syncopal episodes Blood work from July 2024 shows glucose 88, BUN 13, creatinine 0.67, GFR 104, sodium 139, potassium 4.3, calcium 9.5 Orders: CBC and Auto Differential; Future Follow Up In Primary Care - Established; Future Associated Problem(s): Prediabetes Lab Results Component Value Date HGBA1C 4.7 03/19/2023 Treated w/ metformin & Jardiance per her FORM DESIGNER Most recent hemoglobin A1c 5.5% from July 2024 not as active as she would like to be and describes her diet as "crappy" Orders: Follow Up In Primary Care - Established; Future Associated Problem(s): Mild intermittent asthma without complication ([facility]) Continue Singulair Recently had COVID in November; recommend COVID booster in February Has not used Albuterol since the Spring months Reccomend influenza vaccination today Orders: Follow Up In Primary Care - Established; Future Associated Problem(s): Major depressive disorder in partial remission In August of this past year developed depressive symptoms and was started on thyroid medication and Wellbutrin by her FORM DESIGNER. At that time she had stopped exercising and made poor dietary choices. She is feeling better now and is motivated to start cleaning up her diet and trying to walk on a more consistent basis. Blood work from September 2024 shows total T3 109, free T41.3, TSH 1.81, free T33.6 B12 229, estradiol 57, total testosterone 6 DHEA S102, FSH 5.5. documented in this encounter [facility] Work Phone: 01-27-2024 Evaluation + Plan note Associated Problem(s): Benign hypertension Recent kidney and electrolyte testing completed and reviewed today Added Aldactone by her FORM DESIGNER for and hair loss Denies lightheadedness /dizziness/FITZPATRICK/visual disturbances Home BP's: 115-120/70's Orders: Follow Up In Primary Care - Established hydroCHLOROthiazide (Microzide) 12.5 mg tablet; Take 1 tablet (12.5 mg) by mouth once daily. losartan (Cozaar) 50 mg tablet; Take 1 tablet (50 mg) by mouth once daily. 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 Weight gradually increasing Orders: Follow Up In Primary Care - Established Hemoglobin A1C; Future Lipid Panel; Future TSH with reflex to Free T4 if abnormal; Future [facility] Work Phone: 01-27-2024 Evaluation + Plan note Associated Problem(s): Heart palpitations Stopped Metoprolol last year as was concerned it was contributing to her hair loss; she has seen no difference being off metoprolol with concern to her hirsutism & her hair loss PMS worsens palpations Has had 5-6 episodes of palpations, lasting part of the day, over the summer Orders: Follow Up In Primary Care - Established metoprolol succinate XL (Toprol-XL) 25 mg 24 hr tablet; Take 1 tablet (25 mg) by mouth once daily. Do not crush or chew. [facility] Work Phone: 01-27-2024 Evaluation + Plan note Associated Problem(s): Mild intermittent asthma without complication ([facility]) Continue Singulair daily Infrequent use of albuterol Asthma symptoms worse on humid hot days when outdoors Had COVID in December Orders: Follow Up In Primary Care - Established montelukast (Singulair) 10 mg tablet; Take 1 tablet (10 mg) by mouth once daily. [facility] Work Phone: 01-27-2024 Evaluation + Plan note Associated Problem(s): Breast cancer screening by mammogram Hx of breast reduction surgery Ordered MMG Orders: BI mammo bilateral screening tomosynthesis; Future [facility] Work Phone: 01-27-2024 History of Presen t illness Narrative Subjective Patient ID: Sandra Abdi is a 53 y.o. female who presents for Annual Exam. Sandra comes to office today for a 1 Y OV Recent blood testing showed low Vitamin [id number] injectables @ beginning of the month. No surgeries or hospitalizations within the last yr Breast cancer screening: Last mammogram June 2021 BI-RADS 2. Colorectal cancer screening: Last colonoscopy 2020 showed hemorrhoids recheck in 10 years Cervical CA Screening: thru [employer]. + PCOS [employer] added Aldactone & testosterone for hair loss & hirtusium, ongoing PMS sx. Review of Systems Constitutional: Negative for fatigue and unexpected weight change. Eyes: Negative for visual disturbance. Respiratory: Negative for cough, shortness of breath and wheezing. Cardiovascular: Positive for palpitations. Negative for chest pain and leg swelling. Gastrointestinal: Negative for abdominal pain and blood in stool. Neurological: Negative for dizziness, syncope, light-headedness and headaches. Psychiatric/Behavioral: The patient is nervous/anxious. Objective BP 118/72 Pulse 88 Ht 1.702 m (5' 7") Wt 81.6 kg (180 lb) SpO2 95% BMI 28.19 kg/m Physical Exam Vitals and nursing note reviewed. Constitutional: Appearance: Normal appearance. HENT: Head: Normocephalic. Neck: Thyroid: No thyromegaly or thyroid tenderness. Vascular: No carotid bruit. Cardiovascular: Rate and Rhythm: Normal rate and regular rhythm. Heart sounds: Normal heart sounds. No murmur heard. Pulmonary: Effort: Pulmonary effort is normal. Breath sounds: Normal breath sounds. Abdominal: General: Abdomen is protuberant. Bowel sounds are decreased. Palpations: Abdomen is soft. Tenderness: There is no abdominal tenderness. Musculoskeletal: Right lower leg: No edema. Left lower leg: No edema. Lymphadenopathy: Cervical: No cervical adenopathy. Skin: General: Skin is warm and dry. Neurological: General: No focal deficit present. Mental Status: She is alert and oriented to person, place, and time. Psychiatric: Mood and Affect: Mood normal. Behavior: Behavior normal. Thought Content: Thought content normal. Assessment/Plan Assessment & Plan Benign hypertension Recent kidney and electrolyte testing completed and reviewed today Added Aldactone by her [employer] for and hair loss Denies lightheadedness /dizziness/FITZPATRICK/visual disturbances Home BP's: 115-120/70's Orders: Follow Up In Primary Care - Established hydroCHLOROthiazide (Microzide) 12.5 mg tablet; Take 1 tablet (12.5 mg) by mouth once daily. losartan (Cozaar) 50 mg tablet; Take 1 tablet (50 mg) by mouth once daily. 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 Weight gradually increasing Orders: Follow Up In Primary Care - Established Hemoglobin A1C; Future Lipid Panel; Future TSH with reflex to Free T4 if abnormal; Future Heart palpitations Stopped Metoprolol last year as was concerned it was contributing to her hair loss; she has seen no difference being off metoprolol with concern to her hirsutism & her hair loss PMS worsens palpations Has had 5-6 episodes of palpations, lasting part of the day, over the summer Orders: Follow Up In Primary Care - Established metoprolol succinate XL (Toprol-XL) 25 mg 24 hr tablet; Take 1 tablet (25 mg) by mouth once daily. Do not crush or chew. Mild intermittent asthma without complication ([facility]) Continue Singulair daily Infrequent use of albuterol Asthma symptoms worse on humid hot days when outdoors Had COVID in December Orders: Follow Up In Primary Care - Established montelukast (Singulair) 10 mg tablet; Take 1 tablet (10 mg) by mouth once daily. Breast cancer screening by mammogram Hx of breast reduction surgery Ordered MMG Orders: BI mammo bilateral screening tomosynthesis; Future documented in this encounter [facility] Work Phone: 01-27-2024 Instructions ARELI Stearns - 01/27/2024 10:00 AM EDT You received your Prevnar 20 and influenza vaccines today I recommend 3 months after having COVID you receive your COVID booster Please complete your blood work when you are able to fast, nothing to eat or drink except for water black coffee or tea without sugar or milk 12 hours prior. Please schedule your mammogram Restart metoprolol 25 mg daily for your heart palpitations; this medication may lower your blood pressure and with recently starting Aldactone and being on other blood pressure medications please watch for low blood pressure/dizziness or lightheadedness. If the symptoms develop please call the office Office visit in 1 year documented in this encounter [facility] Work Phone: 01-27-2024 Miscellaneous Notes Associated Problem(s): Benign hypertension Recent kidney and electrolyte testing completed and reviewed today Added Aldactone by her [employer] for and hair loss Denies lightheadedness /dizziness/FITZPATRICK/visual disturbances Home BP's: 115-120/70's Orders: Follow Up In Primary Care - Established hydroCHLOROthiazide (Microzide) 12.5 mg tablet; Take 1 tablet (12.5 mg) by mouth once daily. losartan (Cozaar) 50 mg tablet; Take 1 tablet (50 mg) by mouth once daily. 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 Weight gradually increasing Orders: Follow Up In Primary Care - Established Hemoglobin A1C; Future Lipid Panel; Future TSH with reflex to Free T4 if abnormal; Future Associated Problem(s): Heart palpitations Stopped Metoprolol last year as was concerned it was contributing to her hair loss; she has seen no difference being off metoprolol with concern to her hirsutism & her hair loss PMS worsens palpations Has had 5-6 episodes of palpations, lasting part of the day, over the summer Orders: Follow Up In Primary Care - Established metoprolol succinate XL (Toprol-XL) 25 mg 24 hr tablet; Take 1 tablet (25 mg) by mouth once daily. Do not crush or chew. Associated Problem(s): Mild intermittent asthma without complication ([facility]) Continue Singulair daily Infrequent use of albuterol Asthma symptoms worse on humid hot days when outdoors Had COVID in December Orders: Follow Up In Primary Care - Established montelukast (Singulair) 10 mg tablet; Take 1 tablet (10 mg) by mouth once daily. Associated Problem(s): Breast cancer screening by mammogram Hx of breast reduction surgery Ordered MMG Orders: BI mammo bilateral screening tomosynthesis; Future documented in this encounter [facility] Work Phone: 09-25-2023 History of Presen t illness Narrative 52 y.o. female presents for evaluation of nasal congestion, cough for the past 2 weeks and bilateral ear fullness and crackling for the past 4 days. Denies fever, sore throat, body aches, fatigue, nausea, vomiting, diarrhea, abdominal pain, chest pain, shortness of breath or any other associated symptom or complaint. Has been using OTC remedies without improvement in symptoms. No other complaints. Vitals: 09/25/23 1424 BP: 110/78 Pulse: 101 Resp: 18 Temp: 36.9 C (98.4 F) SpO2: 96% Allergies Allergen Reactions Codeine Unknown Penicillins Unknown Medication Documentation Review Audit Reviewed by Juan Arnold MA (Telephone Station Repairer) on 09/25/23 at 1423 Medication Order Taking? Sig Documenting Provider Last Dose Status empagliflozin (Jardiance) 25 mg [id number] Yes Take by mouth. Historical Provider, Taking Active hydroCHLOROthiazide (HYDRODiuril) 12.5 mg tablet [id number] Yes Take 1 tablet (12.5 mg) by mouth once daily. ARELI Stearns Taking Active losartan (Cozaar) 50 mg tablet [id number] Yes Take 1 tablet (50 mg) by mouth once daily. ARELI Stearns Taking Active metFORMIN (Glucophage) 1,000 mg tablet [id number] Yes Take 1 tablet (1,000 mg) by mouth once daily at bedtime. Historical Provider, Taking Active montelukast (Singulair) 10 mg tablet [id number] Yes Take 1 tablet (10 mg) by mouth once daily. ARELI Stearns Taking Active progesterone (Prometrium) 100 mg capsule [id number] Yes Take 1 capsule (100 mg) by mouth once daily. Historical Provider, Taking Active Past Medical History: Diagnosis Date History of facelift 08/23/2022 Past Surgical History: Procedure Laterality Date FACIAL COSMETIC SURGERY 08/23/2022 OTHER SURGICAL HISTORY 12/22/2019 Breast reduction OTHER SURGICAL HISTORY 12/22/2019 Cholecystectomy OTHER SURGICAL HISTORY 12/22/2019 section OTHER SURGICAL HISTORY 01/17/2021 Colonoscopy ROS See HPI Physical Exam Vitals and nursing note reviewed. Constitutional: General: She is not in acute distress. Appearance: Normal appearance. She is not ill-appearing or toxic-appearing. HENT: Head: Normocephalic and atraumatic. Right Ear: Ear canal normal. Tympanic membrane is erythematous. Left Ear: Ear canal normal. Tympanic membrane is erythematous. Nose: Congestion present. Mouth/Throat: Mouth: Mucous membranes are moist. Pharynx: Oropharynx is clear. Eyes: Extraocular Movements: Extraocular movements intact. Conjunctiva/sclera: Conjunctivae normal. Pupils: Pupils are equal, round, and reactive to light. Cardiovascular: Rate and Rhythm: Normal rate and regular rhythm. Pulmonary: Effort: Pulmonary effort is normal. Breath sounds: Normal breath sounds. Skin: General: Skin is warm and dry. Capillary Refill: Capillary refill takes less than 2 seconds. Neurological: General: No focal deficit present. Mental Status: She is alert and oriented to person, place, and time. Psychiatric: Mood and Affect: Mood normal. Behavior: Behavior normal. Assessment/Plan/MDM Sandra was seen today for uri and earache. Diagnoses and all orders for this visit: Non-recurrent acute serous otitis media of both ears (Primary) - cefdinir (Omnicef) 300 mg capsule; Take 1 capsule (300 mg) by mouth 2 times a day for 10 days. - fluconazole (Diflucan) 150 mg tablet; Take 1 tablet (150 mg) by mouth 1 time for 1 dose. Repeat on last day of antibiotics Patient request treatment for yeast infection as she gets them when she takes antibiotics. Encouraged pt to continue otc cold remedies PRN, push PO fluids and rest. Patient's clinical presentation is otherwise unremarkable at this time. Patient is discharged with instructions to follow-up with primary care or seek emergency medical attention for worsening symptoms or any new concerns. I did personally review Sandra's past medical history, surgical history, social history, as well as family history (when relevant). In this case, I also oversaw the her drug management by reviewing her medication list, allergy list, as well as the medications that I prescribed during the UC course and/or recommended as an out-patient (including possible OTC medications such as acetaminophen, NSAIDs , etc). After reviewing the items above, I did not look at previous medical documentation, such as recent hospitalizations, office visits, and/or recent consultations with PCP/specialist. SDOH: Another factor that I considered in Sandra's care was her Social Determinants of Health (SDOH). During this UC encounter, she did not have social determinants of health. Those SDOH influencing Sandra's care are: none Yehuda Appiah CNP [facility] [phone] documented in this encounter [facility] Work Phone: 01-21-2023 History of Presen t illness Narrative Subjective Patient ID: Sandra Abdi is a 52 y.o. female who presents for Follow-up (1 YR HTN CHECK) and UTI. Sandra comes to the office for 1 year for hypertension/prediabetes/asthma & medication refill + UTI sx started within past 7D w/ urgency & freq. + bladder spasms yesterday morning. No back pain/abd pain/fever/chills. Some burning w/ urination. IO UA: + glucose, no blood or leuks Prediabetes with elevated insulin level diagnosed by [employer]M DES[employer]. Started on Jardiance over 1 year ago & taking metformin. Most recent hemoglobin A1c: 4.8%. No prior UTI's/yeast infection Labs from July 2022 Surgeries or hospitalizations within the last year: Facelift in August 2022 Breast cancer screening: Last mammogram June 2021 BI-RADS 2. h/o breast reduction surgery. Colorectal cancer screening: Last colonoscopy 2020 showed hemorrhoids recheck in 10 years Cervical CA Screening: thru [facility]. Gets PAP's yrly. Mother had uterine & cervical CA Physical activity: Was active on the treadmill @ [employer], walks dog & swims until facelift. Increasing activity caused swelling in the face so she has cut back on those activities and has gradually started to resume walking daily. Hypertension-community blood pressures: 114-110/60's. Compliant with hydrochlorothiazide/Losartan. No chest pain/dizziness/syncopal episodes or shortness of breath. Asthma-on singular daily. Recommend yearly influenza vaccination. Infrequent use of Chavo Difficulty Urinating This is a new problem. The current episode started in the past 7 days. The problem occurs intermittently. The problem has been gradually worsening. The quality of the pain is described as burning. The pain is at a severity of 5/10. There has been no fever. She is Not sexually active. There is No history of pyelonephritis. Associated symptoms include frequency and urgency. Pertinent negatives include no chills, discharge, flank pain, hematuria, hesitancy, nausea, possible , sweats or vomiting. She has tried nothing for the symptoms. The treatment provided no relief. Review of Systems Constitutional: Negative for chills. Respiratory: Negative for cough, shortness of breath and wheezing. Cardiovascular: Negative for chest pain, palpitations and leg swelling. Gastrointestinal: Negative for blood in stool, constipation, diarrhea, nausea and vomiting. Genitourinary: Positive for dysuria, frequency and urgency. Negative for flank pain, genital sores, hematuria, hesitancy, pelvic pain, vaginal bleeding, vaginal discharge and vaginal pain. + bladder spasms Objective BP 130/74 Pulse 68 Ht 1.708 m (5' 7.25") Wt 81.8 kg (180 lb 4.8 oz) SpO2 98% BMI 28.03 kg/m Physical Exam Vitals and nursing note reviewed. Constitutional: Appearance: Normal appearance. HENT: Head: Normocephalic. Cardiovascular: Rate and Rhythm: Normal rate and regular rhythm. Heart sounds: Normal heart sounds. Pulmonary: Effort: Pulmonary effort is normal. Breath sounds: Normal breath sounds. Musculoskeletal: Cervical back: Normal range of motion. Skin: General: Skin is warm and dry. Neurological: General: No focal deficit present. Mental Status: She is alert and oriented to person, place, and time. Psychiatric: Mood and Affect: Mood normal. Thought Content: Thought content normal. Assessment/Plan Problem List Items Addressed This Visit Benign hypertension Relevant Medications hydroCHLOROthiazide (HYDRODiuril) 12.5 mg tablet losartan (Cozaar) 50 mg tablet Other Relevant Orders Follow Up In Primary Care - Established Prediabetes Relevant Orders Follow Up In Primary Care - Established Heart palpitations Relevant Medications metoprolol succinate XL (Toprol-XL) 25 mg 24 hr tablet Other Relevant Orders Follow Up In Primary Care - Established Mild intermittent asthma without complication Relevant Medications montelukast (Singulair) 10 mg tablet Other Relevant Orders Follow Up In Primary Care - Established Dysuria Relevant Medications sulfamethoxazole-trimethoprim (Bactrim DS) 800-160 mg tablet phenazopyridine (Pyridium) 100 mg tablet Other Relevant Orders Urine Culture Other fatigue Relevant Orders Thyroid Stimulating Hormone Encounter for screening mammogram for malignant neoplasm of breast - Primary Relevant Orders BI mammo bilateral screening tomosynthesis documented in this encounter [facility] Work Phone: 01-21-2023 Instructions ARELI Stearns - 01/21/2023 8:00 AM EDT Stop Jardiance Bactrim DS 1 tablet twice a day x3 days. Pyridium 100 mg 3 times daily as needed bladder spasms Please get cholesterol panel checked with next lab draw for your FORM DESIGNER next month Complete mammography Office visit in 1 year documented in this encounter [facility] Work Phone: 07-30-2022 Evaluation + Plan note Associated Problem(s): Diabetes (CMS/HCC) We will check an A1c testing along with a CMP, patient follows with a specialist, should also have thyroid and lipid profiles checked at least once a year. [facility] Work Phone: 07-30-2022 Miscellaneous Notes Associated Problem(s): Diabetes (CMS/HCC) We will check an A1c testing along with a CMP, patient follows with a specialist, should also have thyroid and lipid profiles checked at least once a year. Associated Problem(s): Benign hypertension Blood pressure in the office today is normal, tolerating medication, check electrolytes and renal function. Associated Problem(s): Mild intermittent asthma without complication She has been well controlled, patient has not had to use her rescue inhaler in a long time, managed with simply taking Singulair once a day. documented in this encounter [facility] Work Phone: 07-30-2022 Evaluation + Plan note Associated Problem(s): Benign hypertension Blood pressure in the office today is normal, tolerating medication, check electrolytes and renal function. [facility] Work Phone: 07-30-2022 Evaluation + Plan note Associated Problem(s): Mild intermittent asthma without complication She has been well controlled, patient has not had to use her rescue inhaler in a long time, managed with simply taking Singulair once a day. [facility] Work Phone: 07-30-2022 History of Presen t illness Narrative Subjective Patient ID: Sandra Abdi is a 51 y.o. female who presents for Pre-op Exam. HPI To have plastic surgery (face lift) No headache, chest pain, shortness of breath, dizziness, lightheadedness, or edema Has lost 30 pounds in the past year To have GET, scheduled August 23exercise regularly (5 days a week/walk, swim or run, usually 45-60 minutes) No tobacco use since 2006 No headache, chest pain, shortness of breath, dizziness, lightheadedness, or edema Had surgery in the past (breast reduction) had some wound healing issues Rare albuterol use Review of Systems Constitutional: Negative for activity change, appetite change, fatigue and unexpected weight change. HENT: Negative for ear pain, nosebleeds, rhinorrhea, sneezing and trouble swallowing. Respiratory: Negative for cough, shortness of breath and wheezing. Cardiovascular: Negative for chest pain, palpitations and leg swelling. Gastrointestinal: Negative for abdominal distention, abdominal pain, constipation, diarrhea, nausea and vomiting. Genitourinary: Negative for difficulty urinating. Musculoskeletal: Negative for arthralgias. Skin: Negative for rash. Neurological: Negative for dizziness, light-headedness, numbness and headaches. Hematological: Negative for adenopathy. Psychiatric/Behavioral: Negative for behavioral problems. All other systems reviewed and are negative. Objective BP 110/80 Pulse 71 Ht 1.708 m (5' 7.25") Wt 79.4 kg (175 lb 1.6 oz) SpO2 98% BMI 27.22 kg/m Physical Exam Vitals and nursing note reviewed. Constitutional: General: She is not in acute distress. Appearance: Normal appearance. She is not toxic-appearing. HENT: Head: Normocephalic and atraumatic. Right Ear: Tympanic membrane, ear canal and external ear normal. Left Ear: Tympanic membrane, ear canal and external ear normal. Nose: Nose normal. Mouth/Throat: Mouth: Mucous membranes are dry. Pharynx: Oropharynx is clear. Eyes: Extraocular Movements: Extraocular movements intact. Conjunctiva/sclera: Conjunctivae normal. Pupils: Pupils are equal, round, and reactive to light. Cardiovascular: Rate and Rhythm: Normal rate and regular rhythm. Pulmonary: Effort: Pulmonary effort is normal. Breath sounds: Normal breath sounds. Abdominal: General: Abdomen is flat. Bowel sounds are normal. Palpations: Abdomen is soft. Musculoskeletal: Cervical back: Normal range of motion and neck supple. Skin: General: Skin is warm and dry. Capillary Refill: Capillary refill takes less than 2 seconds. Neurological: General: No focal deficit present. Mental Status: She is alert and oriented to person, place, and time. Mental status is at baseline. Psychiatric: Mood and Affect: Mood normal. Behavior: Behavior normal. Assessment/Plan Problem List Items Addressed This Visit Respiratory Mild intermittent asthma without complication She has been well controlled, patient has not had to use her rescue inhaler in a long time, managed with simply taking Singulair once a day. Circulatory Benign hypertension Blood pressure in the office today is normal, tolerating medication, check electrolytes and renal function. Relevant Orders Comprehensive Metabolic Panel Endocrine/Metabolic Diabetes (CMS/HCC) We will check an A1c testing along with a CMP, patient follows with a specialist, should also have thyroid and lipid profiles checked at least once a year. Relevant Orders Comprehensive Metabolic Panel Hemoglobin A1C Other Visit Diagnoses Preop examination - Primary EKG today is normal, patient is very active, will check blood testing, see no reason medically for her to be high risk for planned surgery. Relevant Orders CBC Comprehensive Metabolic Panel Hemoglobin A1C Protime-INR APTT documented in this encounter [facility] Work Phone: 07-18-2021 Note [facility] Work Phone: Pap Smear Specimen Adequacy July 18, 2021 4:30pm Comment Satisfactory for evaluation. Endocervical and/or squamous metaplasticcells (endocervical component) are present. Comment on above: Satisfactory for mare luation. Endocervical and/or squamous metaplasticcells (endocervical component) are present. 07-18-2021 Note [facility] Work Phone: Pap Smear Specimen Adequacy July 18, 2021 4:30pm Comment Satisfactory for evaluation. Endocervical and/or squamous metaplasticcells (endocervical component) are present. Comment on above: Satisfactory for mare luation. Endocervical and/or squamous metaplasticcells (endocervical component) are present. 07-18-2021 Note [facility] Work Phone: Pap Smear Specimen Adequacy July 18, 2021 4:30pm Comment Satisfactory for evaluation. Endocervical and/or squamous metaplasticcells (endocervical component) are present. Comment on above: Satisfactory for mare luation. Endocervical and/or squamous metaplasticcells (endocervical component) are present. 01-01-2021 History of Present illness Narrative Sandra comes to the office for a 1 year office visit and medication refillsMild intermittent asthma: Albuterol used twice in last yr; singulair effectiveHypertension -NSAID use \\{ occasionally for menstrual cramps \\}, NA intake \\{ - \\}, OTC cold remedies \\{occasional Sudafed for ETD when traveling \\}, smoking \\{ - \\}, Alcohol \\{ - \\}, physical activity \\{ + walking/swimming \\}blurred/double vision \\{ wears glasses \\}, lightheadedness \\{ - \\}, dizziness \\{ - \\}, previous syncopal episodes \\{ - \\}, headache \\{ - \\}, chest pain \\{ - \\}, palpations \\{ -; h/o palpitations improved on beta-nini \\}, SOB \\{ - \\}Checking BP @ home \\{ + \\} - SBP ranges: 110's DBP Ranges: 60'sTaking medication as prescribed: \\{ + \\}, omitted doses \\{ - \\}Breast/cervical cancer screening: through [facility] cancer screening: Had colonoscopy in 2020; repeat in 10Y; IBS sx better+ perimenopause symptoms & noted to have PreDM with high insulin levels through [employer] and was started on Metformin & Jardiance. Feeling better as she has been able to start losing some weight, the night sweats have improved and her hair is starting to grow back. Last HgbAic 5.2% [facility] Work Phone: 01-01-2020 History of Present illness Narrative Sandra comes to the office for a 1 year visit for hypertension, palpitations and asthma.Hypertension -former smoker, no alcohol consumption. No community blood pressures. Taking and tolerating medication. Leads a sedentary lifestyle and has had a cohol \\{ \\}, physical activity \\{ none; works @ home. sedetary lifestyle. has had a 8 pound weight gain over the last year. Patient admits that her diet is not healthy and "I eat like an 17-year-old boy". Feels that the excess calories and weight gain is attributed to the enjoyment of eating food. There is no structured physical activity. Reviewed lifestyle and dietary modifications with patient today. Does have a history of gestational diabetes and was on insulin during and for short period of time after delivery.Had Covid in May. Is still having issues with not being able to smell and taste being off. Had considerable diarrhea during the Covid which since has gotten better but remains. She feels that this is related to a high sugary diet which exacerbates diarrhea. Notes when she eats healthier and includes high-fiber foods that the diarrhea improves. No blood noted in stool. Does have a family history of colorectal cancer. We will refer to GI for colonoscopyPalpations- occasional; improved on metoprolol; less stress w/ new job. Coronary Ca. Score: 0. We will check lipid panel. + Family history of CAD in both parents. Denies chest pain, dizziness or lightheadedness.mild intermittent asthma- CHAVO infreq. On singulair daily which really seems to help manage asthma. No steroid or antibiotic therapy within the last 6 months use within last 6MO.completed COVID vaccination series.Cervical cancer screening and breast cancer screening: [facility] Work Phone: Evaluation note No assessment information availa [facility] Work Phone: Evaluation note Diagnosis Encounter for screening mammogram for malignant neoplasm of breast- Primary Benign hypertension Essential hypertension, benign Prediabetes Other abnormal glucose Heart palpitations Palpitations Mild intermittent asthma without complication Screening, lipid Other fatigue Dysuria documented in this encounter [facility] Work Phone: Evaluation note* Diagnosis Non-recurrent acute serous otitis media of both ears- Primary documented in this encounter [facility] Work Phone: Evaluation note* Diagnosis Preop examination- Primary Unspecified pre-operative examination Mild intermittent asthma without complication Benign hypertension Essential hypertension, benign Type 2 diabetes mellitus without complication, without long-term current use of insulin ([facility]/HCC) documented in this encounter [facility] Work Phone: Evaluation note* Diagnosis Preop examination- Primary Unspecified pre-operative examination Mild intermittent asthma without complication ([facility]) Benign hypertension Essential hypertension, benign Type 2 diabetes mellitus without complication, without long-term current use of insulin (Multi) Benign hypertension Essential hypertension, benign Prediabetes Other abnormal glucose Heart palpitations Palpitations Mild intermittent asthma without complication ([facility]) Breast cancer screening by mammogram documented in this encounter [facility] Work Phone: Evaluation note* Diagnosis Preop examination- Primary Unspecified pre-operative examination Mild intermittent asthma without complication ([facility]) Benign hypertension Essential hypertension, benign Type 2 diabetes mellitus without complication, without long-term current use of insulin Benign hypertension Essential hypertension, benign Prediabetes Other abnormal glucose Heart palpitations Palpitations Mild intermittent asthma without complication ([facility]) Breast cancer screening by mammogram Benign hypertension- Primary Essential hypertension, benign Breast cancer screening by mammogram Prediabetes Other abnormal glucose Mild intermittent asthma without complication ([facility]) Encounter for immunization Elevated LDL cholesterol level Major depressive disorder in partial remission, unspecified whether recurrent documented in this encounter [facility] Work Phone: History of Present illness NarrativeAmy comes to office to discuss freq. BM's. + h/o IBS. Notes approx 20" after eating will have some abd pain/cramping & an immed. urge to defecate. No food triggers or foods that aggravate IBS. Notes always has had sx but they have worsened in the last 6MO. Has approx. 2-3BM's daily. Small in quanity and assoc. w/ a large amt of flatus. No mucus or blood in stool. + cramping prior to BM but none in between. Some daytime fecal incont: if she doesn't get to bathroom in time. Has been intermittent fasting 16H eats from 11A-7P. OTC: none. No noctural diarrhea.MP- [facility] Work Phone: reason for referral (narrative)* Consultation (Routine) - Authorized Specialty Diagnoses / Procedures Referred By Jakub dawson Referred To Contact Primary Care Diagnoses Benign hypertension Prediabetes Heart palpitations Mild intermittent asthma without complication Procedures Follow Up In Primary Care - Ravin Maravilla APRN-PAVER OPERATOR [address] [place] [address] Referral ID Status Reason Start Date Expiration Date V isits Requested Visits Authorized [id number] Authorized 01/21/2023 07/20/2023 1 1 * Imaging (Routine) - Authorized Specialty Diagnoses / Procedures Referred By Contac t Referred To Contact Radiology Diagnoses Encounter for screening mammogram for malignant neoplasm of breast Procedures BI mammo bilateral screening tomosynthesis Ravin Alexander APRN-[facility] [id number] [phone] Referral ID Status Reason Start Date Expiration Date Visits Requested Visits Authorized [id number] Authorized Perform Procedure 01/21/2023 07/20/2023 1 1 [facility] Work Phone: Assessments Diagnosis SOBOE (shortness of breath o n exertion) Shortness of breath Diagnosis Essential hypertension Unspecified essential hypertension Palpitation Palpitations SOBOE (shortness of breath o n exertion) Shortness of breath Summary Purpose Family History No Family History Records Found Mother Name Dates Details Family history of asthma(V17 .5, Z82.5) Status:Active Family history of coronary a rtery disease(V17.3, Z82.49) Status:Active Family history of malignant neoplasm(V16.9, Z80.9) Status:Active Family history of cerebrovas cular accident (CVA)(V17.1, Z82.3) Status:Active Family history of diabetes m ellitus(V18.0, Z83.3) Status:Active Family history of hypertensi on(V17.49, Z82.49) Status:Active Father Name Dates Details Family history of myocardial infarction(V17.3, Z82.49) Status:Active Family history of Primary ma lignant neoplasm of lung(162.9, C34.90) Status:Active Unknown Family Member Name Dates Details Family history of asthma: Mo ther(V17.5, Z82.5) Status:Active Family history of coronary a rtery disease: Mother(V17.3, Z82.49) Status:Active Family history of malignant neoplasm: Mother(V16.9, Z80.9) Status:Active Family history of cerebrovas cular accident (CVA): Mother(V17.1, Z82.3) Status:Active Family history of diabetes m ellitus: Mother(V18.0, Z83.3) Status:Active Family history of hypertensi on: Mother(V17.49, Z82.49) Status:Active Family history of myocardial infarction: Father(V17.3, Z82.49) Status:Active Primary malignant neoplasm o f lung: Father Status:Active Unknown Family Member Name Dates Details Family history of asthma: Mo ther(V17.5, Z82.5) Status:Active Family history of coronary a rtery disease: Mother(V17.3, Z82.49) Status:Active Family history of malignant neoplasm: Mother(V16.9, Z80.9) Status:Active Family history of cerebrovas cular accident (CVA): Mother(V17.1, Z82.3) Status:Active Family history of diabetes m ellitus: Mother(V18.0, Z83.3) Status:Active Family history of hypertensi on: Mother(V17.49, Z82.49) Status:Active Family history of myocardial infarction: Father(V17.3, Z82.49) Status:Active Primary malignant neoplasm o f lung: Father Status:Active Unknown Family Member Name Dates Details Family history of asthma: Mo ther(V17.5, Z82.5) Status:Active Family history of coronary a rtery disease: Mother(V17.3, Z82.49) Status:Active Family history of malignant neoplasm: Mother(V16.9, Z80.9) Status:Active Family history of cerebrovas cular accident (CVA): Mother(V17.1, Z82.3) Status:Active Family history of diabetes m ellitus: Mother(V18.0, Z83.3) Status:Active Family history of hypertensi on: Mother(V17.49, Z82.49) Status:Active Family history of myocardial infarction: Father(V17.3, Z82.49) Status:Active Primary malignant neoplasm o f lung: Father Status:Active Unknown Family Member Name Dates Details Family history of asthma: Mo ther(V17.5, Z82.5) Status:Active Family history of coronary a rtery disease: Mother(V17.3, Z82.49) Status:Active Family history of malignant neoplasm: Mother(V16.9, Z80.9) Status:Active Family history of cerebrovas cular accident (CVA): Mother(V17.1, Z82.3) Status:Active Family history of diabetes m ellitus: Mother(V18.0, Z83.3) Status:Active Family history of hypertensi on: Mother(V17.49, Z82.49) Status:Active Family history of myocardial infarction: Father(V17.3, Z82.49) Status:Active Primary malignant neoplasm o f lung: Father Status:Active Advance Directives No Advanced Directives Records FoundNo Advanced Directives Records FoundNo Advanced Directives Records FoundNo Advanced Directives Records FoundNo Advanced Directives Records FoundNo Advanced Directives Records FoundNo Advanced Directives Records FoundNo Advanced Directives Records FoundNo Advanced Directives Records FoundNo Advanced Directives Records FoundNo Advanced Directives Records Found Chief Complaint YRLY FU HTN PALP VIT D DEF ASTHMABM URGENCY WORSENING SOON AFTER MEAL X 6 MO YEARLY FU HTN PALPATIONS Chief Complaint and Reason for Visit Chief Complaint SCREENING Reason for Referral Specialty Diagnoses / Procedures Referred By Contac t Referred To Contact Radiology Diagnoses Breast cancer screening by mammogram Procedures BI mammo bilateral screening tomosynthesis Ravin Alexander, PILOT SUBMERSIBLE-PAVER OPERATOR [address] [place] [address] Referral ID Status Reason Start Date Expiration Date Visits Requested Visits Authorized [id number] Authorized Perform Procedure 01/27/2024 01/26/2025 1 1 Additional Source Comments Assessment & Plan Note - Saji Silva MD - 06/05/2017 8:10 AM ESTAssessment & Plan Note - Saji Silva MD - 06/05/2017 8:08 AM EST Miscellaneous Notes (unrecog nized section and content) Associated Problem(s): HTN (hypertension) Given BP and palipitations will add low dose Toprol xl and can be increased to 50 Associated Problem(s): Palpitation Sounds very much like PAC/PVC Will add low dose beta nini Associated Problem(s): SOBOE (shortness of breath on exertion) Not sure if just deconditioning Very concerned of CAD given strong FH Cor Ca scorein this encounter INFORMATION SOURCE (unrecogn ized section and content) DATE CREATED AUTHOR 10/25/2017 [facility] DATE CREATED AUTHOR AUTHOR'S ORGANIZ ATION 01/19/[address] [facility] DATE CREATED AUTHOR AUTHOR'S ORGANIZ ATION 05/16/2018 [facility] DATE CREATED AUTHOR AUTHOR'S ORGANIZ ATION 08/26/2019 [facility] DATE CREATED AUTHOR AUTHOR'S ORGANIZ ATION 01/01/2022 [employer] DATE CREATED AUTHOR AUTHOR'S ORGANIZ ATION 04/05/2022 [facility] DATE CREATED AUTHOR AUTHOR'S ORGANIZ ATION 07/31/[address] [facility] DATE CREATED AUTHOR AUTHOR'S ORGANIZ ATION 09/28/2023 [facility] DATE CREATED AUTHOR AUTHOR'S ORGANIZ ATION 01/12/2024 [facility] DATE CREATED AUTHOR AUTHOR'S ORGANIZ ATION 01/29/2025 [facility] DATE CREATED AUTHOR AUTHOR'S ORGANIZ ATION 02/15/2025 [facility] Goals (unrecognized section and content) Goals may be documented in a n alternate sectionGoals may be documented in an alternate sectionGoals may be documented in an alternate sectionGoals may be documented in an alternate section <item> Privacy Markings (unrecogniz ed section and content) Section Author: Francy Gómez PROHIBITION ON REDISCLOSURE OF CONFIDENTIAL INFORMATION This notice accompanies a disclosure of information concerning a client made to you with the consent of such client. Reason for Visit (unrecogniz ed section and content) Reason Comments Follow-up 1 YR HTN CHECK UTI Reason Comments URI Cough/congestion, si nus drainage x 2 weeks Earache Bilateral ear fullne ss/pressure x 4 days Reason Comments Pre-op Exam Reason Comments Annual Exam Specialty Diagnoses / Procedures Referred By Jakub t Referred To Contact Primary Care Diagnoses Benign hypertension Prediabetes Heart palpitations Mild intermittent asthma without complication ([facility]-HCC) Procedures Follow Up In Primary Care - Established Ravin Alexander, PILOT SUBMERSIBLE-PAVER OPERATOR [address] [place] [address] Referral ID Status Reason Start Date Expiration Date Visits Re quested Visits Authorized [id number] Closed 01/21/2023 07/20/2023 1 1 Reason Comments Annual Exam Annual follow up Care Teams (unrecognized sec tion and content) Mid Level Provider Relationship Specialty Start Date End Date Cornell Humphrey MD PCP - General 01/06/19 Team Status: Active Member Role Status Dates Dr. Kermit Humphrey MD Family Provider Active Dr. Kermit Humphrey MD Primary Care Provider Active Team Status: Inactive Member Role Status Dates Dr. Kermit Humphrey MD Primary Care Provider Active RAVIN ALEXANDER NP-C Attending Provider, Referring Pro vider Active Mid Level Provider Relationship Specialty Start Date End Date Cornell Humphrey MD [address] [place] [address] PCP - General Family Medicine 09/25/23 Mid Level Provider Relationship Specialty Start Date End Date Cornell Humphrey MD [address] [place] [address] PCP - General 01/06/19 Mid Level Provider Relationship Specialty Start Date End Date Ravin Alexander APRN-PAVER OPERATOR [address] [address] PCP - General Family Medicine 01/27/24 Mid Level Provider Relationship Specialty Start Date End Date Ravin Alexander PILOT SUBMERSIBLE-PAVER OPERATOR [address] [address] PCP - General Family Medicine 01/27/24 FOR RECORDS PERTAINING TO PATIENTS WHO ARE OR HAVE BEEN ENROLLED IN A CHEMICAL DEPENDENCY/SUBSTANCEABUSE PROGRAM, SOME INFORMATION MAY BE OMITTED. This clinical summary was aggregated from multiple sources. Caution should be exercised in using it in the provision of clinical care. This summary normalizes information from multiple sources, and as a consequence, information in this document may materially change the coding, format and clinical context of patient data. In addition, data may be omitted in some cases. CLINICAL DECISIONS SHOULD BE BASED ON THE PRIMARY CLINICAL RECORDS. [facility] [employer] [facility]. provides no warranty or guarantee of the accuracy or completeness of information in this document.
== END | disposition home or self-care (01) ==
PROVIDERS: PCP Family Medicine; Referring Provider Nurse Practitioner Family; Visit Provider Nurse Practitioner Family
DX: Z12.31 Encounter for screening mammogram for malignant neoplasm of breast (principal)
CPT/HCPCS: 77063; 77067